=== PATIENT | male | born 1945 | race Caucasian/White ===

== ENCOUNTER 2018-03-12 11:05 | Inpatient (IN) | payer OTHER, MEDICARE ==
[~2018-03-12] VITALS: Ht 175.3 cm; Wt 116.3 kg
[~2018-03-12 11:05] MED LIST: ASPIR 8181 MG PO; AUGMENTIN 875-1 EACH PO; BAYER ASPIRIN325 M1; BUDEPRION SR150 MG PO; CREON DR 6,000 U1 EA PO; CYCLOBENZAPRINE5 MG PO; EXFORGE 10-1601 EACH PO; GLUCOPHAGE1000 MG PO; LEXAPRO10 MG PO; MELOXICAM15 MG PO; NORCO 10-325 T1 EACH PO; PRAVASTATIN SOD20 MG PO; TOPROL XL25 MG PO; Z.0.CITALOPRAM HBR10; Z.0.GLUCOPHAGE500 MG; Z.0.NORVASC5 MG; Z.0.PRINIVIL20 MG; ZOFRAN4 MG PO
[2018-03-12] MEDS ORDERED: ASPIRIN 81 MG CHEW TAB PO ONE (11:30)
[2018-03-12 11:46] LABS: BASOPHILS # (AUTO) 0.1 (0.0-0.1); BASOPHILS % 0.7 % (0.0-1.0); EOSINOPHILS # (AUTO) 0.2 (0.0-0.4); EOSINOPHILS % 1.9 % (0.0-6.0); HEMATOCRIT 45.6 % (38.2-49.6); HEMOGLOBIN 15.3 g/dL (14.0-18.0); LYMPHOCYTES # (AUTO) 2.3 (1.0-3.2); LYMPHOCYTES % 28.1 % (18.0-39.1); MEAN CORPUSCULAR HEMOGLOBIN 30.5 pg (28-32); MEAN CORPUSCULAR HGB CONC 33.6 g/dL (31-35); MONOCYTES # (AUTO) 0.7 (0.2-0.8); MONOCYTES % 8.1 % (4.4-11.3); NEUTROPHILS # (AUTO) 4.9 (2.1-6.9); NEUTROPHILS % 60.8 % (38.7-80.0); PLATELET COUNT 238 x10e3/uL (140-360); RED BLOOD COUNT 5.01 x10e6/uL (4.3-5.7); RED CELL DISTRIBUTION WIDTH 13.8 % (11.7-14.4)
[2018-03-12 12:04] LABS: ALBUMIN 3.8 g/dL (3.5-5.0); ALBUMIN/GLOBULIN RATIO 1.1 (0.8-2.0); ANION GAP 17.3 mmol/L (8-16); CALCIUM 9.5 mg/dL (8.4-10.2); CREATININE, SERUM 1.26 mg/dL (0.72-1.25); MAGNESIUM 2.1 MG/DL (1.3-2.1); POTASSIUM 4.3 mmol/L (3.5-5.1)
[2018-03-12 12:23] LABS: CREATINE KINASE MB 1.8 ng/mL (0-5.0); THYROID STIMULATING HORMONE 2.237 uIU/mL (0.350-4.940)
--- NOTE | 2018-03-12 12:25 | Diagnostic Imaging Report ---
Examination: CT head without contrast Clinical Indication: Lethargic. Confusion. Memory loss. Dementia.. Technique: Transaxial noncontrast images from the skull base through the vertex were obtained. Sagittal and coronal reformatted images were done. Dose modulation, iterative reconstruction, and/or weight based adjustment of the mA/kV was utilized to reduce the radiation dose to as low as reasonably achievable. Comparison: None. Findings: Scalp: No abnormalities. Bones: Intact. No fractures. No blastic or lytic lesions. Brain sulci: Moderate volume loss for patient's age. Ventricles: Ex vacuo dilatation. No hydrocephalus. . Extra-axial space: No abnormalities. Parenchyma: There are mild confluent areas of low-attenuation within subcortical and periventricular white matter, nonspecific, but could represent microvascular ischemic disease. No masses, hemorrhage, or acute or chronic cortical based vascular insults. Suprasellar region: No abnormalities. Craniocervical junction: The foramen magnum is patent. No Chiari one malformation. Incidental findings: Atherosclerotic calcification of the cavernous and supraclinoid internal carotid and V4 segments of the bilateral vertebral arteries. Bilateral slitlike orbital lenses. Impression: 1. No acute intracranial finding. 2. Moderate volume loss for age and mild chronic microvascular ischemic change. Signed by: Dr. Rosio Us M.D. on 03/12/2018 12:22 PM
--- NOTE | 2018-03-12 12:29 | Diagnostic Imaging Report ---
PROCEDURE: A single AP view of the chest. COMPARISON: None available. INDICATIONS: MEMORY ISSUES FINDINGS: Limited by body habitus. Lines/tubes: None. Lungs: The lungs are well inflated. Mild central vascular congestion. No definite consolidation. Pleura: There is no pleural effusion or pneumothorax. Heart and mediastinum: The cardiac silhouette is unremarkable. Thickening of the right paratracheal stripe. Bones: No acute bony abnormality. IMPRESSION: Mild central vascular congestion. No definite focal consolidation. Thickening of the right paratracheal stripe. Dictated by: Keegan Fu M.D. on 03/12/2018 at 12:35 Electronically approved by: Keegan Fu M.D. on 03/12/2018 at 12:35
[2018-03-12] MEDS ORDERED: DEXTROSE 50% SYRINGE 50 ML IV PRN (13:00)
[2018-03-12] MEDS: INSULIN REGULAR, HUMAN 100 UNIT/1 ML 3ML VIAL SQ SCH ×2 (16:30→20:52)
[2018-03-12 17:23] VITALS: BP 133/73
[2018-03-12] MEDS ORDERED: LORAZEPAM0.5 MG PO (17:37)
[2018-03-12] MEDS ORDERED: NAMENDA10 MG PO (17:37)
[2018-03-12] MEDS ORDERED: ARICEPT5 MG PO (17:37)
[2018-03-12] MEDS ORDERED: BENICAR20 MG PO (17:37)
[2018-03-12] MEDS ORDERED: METOPROLOL SUCC50 MG PO (17:37)
[2018-03-12] MEDS ORDERED: ISOSORBIDE MONO20 MG PO (17:37)
[2018-03-12] MEDS ORDERED: AMLODIPINE BESY10 MG PO (17:37)
[2018-03-12] MEDS ORDERED: BUPROPION XL300 MG PO (17:37)
--- NOTE | 2018-03-12 18:23 | History and Physical ---
PRIMARY CARE PROVIDER: TATIANA RAMIREZ MD CHIEF COMPLAINT: Confusion, forgetfulness, bradycardia, dizziness. HISTORY OF PRESENT ILLNESS: Patient is a 72-year-old male who was diagnosed with dementia approximately 2 years ago. The patient is on Namenda and Aricept. He basically had an acute episode where he was having dizziness, difficulty standing up from laying down or sitting position. His heart rate was in the 40s and 50s and per the patient the patient has increasing memory loss for the past few months. It is worsened compared to before. 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 The patient seemed to be confused. On conversation history, the patient seemed to be very forgetful. The patient is otherwise stable at this time. PAST MEDICAL HISTORY: Coronary artery disease with 2 stent placement previously. Dementia. Hypertension. Depression. Anxiety disorder. Dyslipidemia. Osteoarthritis. HOME MEDICATIONS: Norvasc, Augmentin recently, Creon, bupropion, Flexeril, Aricept, [place], isosorbide, monohydrate, Lorazepam, Mobic, metoprolol succinate 50 mg daily, metformin, , Benicar, Zofran and pravastatin. ALLERGIES: NO KNOWN ALLERGY. PAST SURGICAL HISTORY: Coronary artery disease with 2 stents, complete prostatectomy secondary to prostate cancer and right rotator cuff repair. SOCIAL HISTORY: Patient lives with his . He does not smoke or use alcohol. No recreational drugs. REVIEW OF SYSTEMS: Dizziness and forgetfulness. PHYSICAL EXAMINATION: GENERAL: The patient seems comfortable and is not in any distress. VITAL SIGNS: Temperature is 98. Blood pressure 117/69. Pulse rate 55. Respirations 18. HEENT: Normocephalic, atraumatic and anicteric. NECK: Supple grossly. PULMONARY: Clear to auscultation bilaterally. CARDIOVASCULAR: S1 and S2. Bradycardia. ABDOMEN: Soft, obese and otherwise unremarkable. EXTREMITIES: No cyanosis or edema. NEUROLOGIC: No gross focal deficit. Moving all extremities. LABORATORY: WBC is 8. Hemoglobin 15.3. Hematocrit 45.6 and platelets is 238,000. Chemistries: Sodium 142, potassium 4.3, chloride 107, bicarb 22, BUN 19, creatinine 1.3. Glucose is 157. AST 62. ALT 91. Magnesium is 2.1. TSH is 2.2. Brain CT scan showed that the patient has moderate volume loss for age and mild chronic microvascular ischemic changes. IMPRESSION: 1. Forgetfulness and dizziness. This is most likely worsening of the patient's dementia in combination with other problems, maybe including bradycardia. 2. Multiple chronic baseline problems. PLAN: MRI of the brain without contrast. Consultation with Dr. Ace, neurology. Home medications resumed. B12 and folic acid level. Will monitor the patient closely. Will hold the metoprolol for now and may add on other medications for blood pressure control. Job#: [id number]
[2018-03-12 18:59] LABS: BILIRUBIN,URINE NEGATIVE (NEGATIVE); CLARITY,URINE CLEAR (CLEAR); COLOR,URINE YELLOW (YELLOW); KETONES,URINE NEGATIVE (NEGATIVE); LEUKOCYTE ESTERASE ,URINE NEGATIVE (NEGATIVE); NITRITE,URINE NEGATIVE (NEGATIVE); PROTEIN,URINE DIPSTICK NEGATIVE (NEGATIVE); URINE UROBILINOGEN 0.2 mg/dL (0.2 - 1)
[2018-03-12 19:23] LABS: EPITHELIAL CELLS,URINE FEW /LPF
[2018-03-12 19:24] LABS: MUCUS,URINE RARE (RARE); RBC,URINE 0-5 /HPF (0-5); WBC,URINE (MAN) 0-5 /HPF (0-5)
[2018-03-12 19:51] LABS: CREATINE KINASE 92 IU/L (30-200)
[2018-03-12 20:00] VITALS: BP 136/73
[2018-03-12] MEDS: DONEPEZIL HCL 5 MG TAB PO SCH (20:51)
[2018-03-12] MEDS: PRAVASTATIN 20 MG TAB PO SCH (20:51)
[2018-03-13] VITALS: BP 154/72
[2018-03-13] MEDS: LORAZEPAM 0.5 MG TAB PO PRN ×3 (00:32→21:00)
[2018-03-13 04:00] VITALS: BP 125/60
[2018-03-13 05:12] LABS: BASOPHILS # (AUTO) 0.1 (0.0-0.1); BASOPHILS % 0.9 % (0.0-1.0); EOSINOPHILS # (AUTO) 0.3 (0.0-0.4); EOSINOPHILS % 3.1 % (0.0-6.0); HEMATOCRIT 43.6 % (38.2-49.6); LYMPHOCYTES # (AUTO) 2.7 (1.0-3.2); MEAN CORPUSCULAR HEMOGLOBIN 31.2 pg (28-32); MEAN CORPUSCULAR HGB CONC 34.4 g/dL (31-35); MEAN CORPUSCULAR VOLUME 90.6 fL (81-99); MONOCYTES # (AUTO) 0.7 (0.2-0.8); MONOCYTES % 8.6 % (4.4-11.3); NEUTROPHILS # (AUTO) 4.3 (2.1-6.9); NEUTROPHILS % 52.9 % (38.7-80.0); PLATELET COUNT 221 x10e3/uL (140-360); RED BLOOD COUNT 4.81 x10e6/uL (4.3-5.7); RED CELL DISTRIBUTION WIDTH 13.8 % (11.7-14.4)
[2018-03-13 05:35] LABS: ALANINE AMINOTRANSFERASE 80 IU/L (0-55); ALBUMIN 3.6 g/dL (3.5-5.0); ALBUMIN/GLOBULIN RATIO 1.1 (0.8-2.0); ALKALINE PHOSPHATASE 74 IU/L (40-150); BLOOD UREA NITROGEN 20 mg/dL (7-26); BUN/CREATININE RATIO 17 (6-25); CALCIUM 9.4 mg/dL (8.4-10.2); CARBON DIOXIDE 23 mmol/L (22-29); CHLORIDE 108 mmol/L (98-107); CREATINE KINASE 100 IU/L (30-200); CREATININE, SERUM 1.19 mg/dL (0.72-1.25); EST GLOMERULAR FILTRATION RATE 60 ML/MIN (60-); GLUCOSE 131 mg/dL (74-118); SODIUM 143 mmol/L (136-145)
[2018-03-13 06:33] LABS: FOLATE 5.1 ng/mL (7.0-15.4)
[2018-03-13] MEDS: INSULIN REGULAR, HUMAN 100 UNIT/1 ML 3ML VIAL SQ SCH ×4 (07:30→20:47)
[2018-03-13 08:30] VITALS: BP 121/65
[2018-03-13] MEDS ORDERED: ISOSORBIDE MONONITRATE 20 MG TAB PO SCH (09:00)
[2018-03-13] MEDS: MEMANTINE 10 MG TAB PO SCH ×2 (09:01→16:49)
[2018-03-13] MEDS: ISOSORBIDE MONONITRATE 30 MG TAB CR PO SCH (09:01)
[2018-03-13] MEDS: AMLODIPINE BESYLATE 10 MG TAB PO SCH (09:01)
[2018-03-13] MEDS: OLMESARTAN 20 MG TAB PO SCH (09:01)
[2018-03-13] MEDS: FOLIC ACID 1 MG TAB PO SCH (09:42)
[2018-03-13 12:28] VITALS: BP 116/74
--- NOTE | 2018-03-13 13:42 | Diagnostic Imaging Report ---
EXAMINATION: MRI of the brain without contrast. HISTORY: Altered mental status, dizziness, bradycardia, head pressure, forget fullness. COMPARISON: Head CT on 03/12/2018 TECHNIQUE: Sagittal T2; axial DWI, T2, FLAIR, T1-IR, T2 gradient echo; coronal FLAIR. IMAGE QUALITY: Adequate. FINDINGS: Parenchyma: 1. Few scattered mild confluent periventricular high matter Doppler hyperintense foci, most likely nonspecific chronic microvascular ischemic changes. 2. No mass, hemorrhage, acute or chronic infarcts. Skull: Unremarkable. Vessels: Expected flow voids present in the major arteries and dural sinuses. Extra-axial spaces: No abnormal signal intensity or mass effect. Brain volume: Generalized volume loss, with particular prominence of the bilateral temporal horns and bilateral hippocampal volume loss, which can be seen in patient's with Alzheimer's disease in the correct clinical setting. Ventricles: Mild ventriculomegaly, that is slightly out of proportion to the size of the cortical sulci, thinning and upward displacement of the corpus callosum, with relative partial effacement of the vertex region sulci. Some degree of normal pressure hydrocephalus cannot be excluded in the appropriate clinical setting Foramen magnum: Unremarkable. Sella: Unremarkable. Paranasal / mastoid sinuses: No significant inflammatory disease. IMPRESSION: 1. No acute infarcts. 2. Mild chronic microvascular ischemic changes. 3. Slightly disproportionate ventriculomegaly, mild degree of communicating normal pressure hydrocephalus cannot be excluded in the appropriate clinical setting. 4. Slightly disproportionate bilateral medial temporal volume loss as detailed above. Signed by: Dr. Marcia Guthrie M.D. on 03/13/2018 1:39 PM
[2018-03-13 16:22] VITALS: BP 123/74
[2018-03-13] MEDS: FAMOTIDINE 20 MG TAB PO SCH (16:49)
[2018-03-13] MEDS: ENOXAPARIN SOD INJ 40 MG/0.4 ML SYR SC SCH (16:49)
[2018-03-13 20:00] VITALS: BP 135/77
[2018-03-13] MEDS: DONEPEZIL HCL 5 MG TAB PO SCH (21:00)
[2018-03-13] MEDS: PRAVASTATIN 20 MG TAB PO SCH (21:00)
[2018-03-14] VITALS (10 sets, daily range): BP systolic 114–146; BP diastolic 65–83
--- NOTE | 2018-03-14 00:39 | Consultation ---
DATE OF CONSULTATION: March 13, 2018 NEUROLOGY CONSULTATION HISTORY OF PRESENT ILLNESS: Mr. Calderon is a 72-year-old [id number] man with past medical history significant for hypertension, hyperlipidemia, diabetes mellitus type 2, and coronary artery disease, admitted to [facility] on March 12, 2018, with symptoms concerning for transient ischemic attack. Throughout the weekend prior to admission, the patient's noted Mr. Calderon to be lethargic. On the morning of admission, the patient awoke and dressed to go to work. As he was preparing to leave, he was unable to recall that he worked for the [employer]. He could not recall his work location. Mr. Calderon does not report a new or worsening visual field cut or other disturbance, dysarthria, aphasia, facial droop, hemiparesis, hemihypoesthesia, or gait or balance impairment associated with the above symptoms. He does endorse dizziness which is further described as a vertiginous sensation. Concerned the patient may be confused due to a low serum glucose, his checked his fingerstick blood glucose. It was found to be 146. The duration of the patient's symptoms is unclear. However, his reports Mr. Calderon generally leaves for work at approximately 05:15. She often leaves for work between 06:00 and 06:30. As stated above, the symptoms began as he was leaving for work. By the time, Mr. Calderon's left for work, his symptoms had resolved. The patient was brought to the Emergency Center at [facility] for further evaluation of his symptoms. Upon arrival, the patient was afebrile with a blood pressure of 117/69 mmHg and a pulse of 55 beats per minute. The patient's neurological examination in the emergency center was documented as being nonfocal. A CT of the brain without contrast was performed while the patient was in the emergency center, but did not show evidence of recent large territorial ischemia, hemorrhage, mass, or mass effect. Mr. Calderon was diagnosed with dementia, probably of the Alzheimer type approximately 2 years ago. At present, he is under the care of Dr. Stacie Zhang. Dr. Zhang has prescribed both donepezil and memantine for treatment of the patient's symptoms. Mr. Calderon reports undergoing a recent neuropsychometric evaluation, but those results are unavailable for review. REVIEW OF SYSTEMS: Fatigue, confusion, dizziness which is further described as a vertiginous sensation. Otherwise, 12-point review of systems is negative. PAST MEDICAL HISTORY: Hypertension, hyperlipidemia, diabetes mellitus type 2, coronary artery disease, ankylosing spondylitis, nephrolithiasis, mixed depression/anxiety disorder, history of headaches, prostate cancer (in remission/cured), obstructive sleep apnea, and dementia probably of the Alzheimer type. PAST SURGICAL HISTORY: Cardiac stent placement, prostatectomy, surgery for obstructive sleep apnea, surgery to remove kidney stones, bilateral cataract removal, right rotator cuff repair, tonsillectomy. PAST HOSPITALIZATIONS: Surgeries/procedures as listed. FAMILY MEDICAL HISTORY: The patient's paternal and maternal grandparents are . Their medical histories are unknown. The patient's father is from hypertension and coronary artery disease with a myocardial infarction. His mother is from chronic obstructive pulmonary disease. Mr. Calderon had 1 sister. She is from metastatic melanoma. The patient has 2 sons, both of whom are alive and healthy. SOCIAL HISTORY: Mr. Calderon is . He works for the [employer]. The patient does report a remote history of tobacco use, but he stopped smoking cigarettes for 50+ years ago. There is no reported current or prior alcohol or recreational drug use. HOME MEDICATIONS: Please see the list available in the electronic medical records. ALLERGIES: NO KNOWN DRUG ALLERGIES. NO KNOWN FOOD ALLERGIES. NO KNOWN ALLERGIES TO LATEX. NO KNOWN ALLERGIES TO IODINE OR OTHER CONTRAST MATERIALS. PHYSICAL EXAMINATION VITAL SIGNS: Height 69 inches, weight 257 pounds, BMI 38.0 kg per meter squared. Blood pressure 116/74 mmHg. Pulse 56 beats per minute. Respiratory rate 19 breaths per minute. Oxygen saturation 98% on room air. GENERAL: The patient is awake and alert, does not appear distressed. Obese. HEENT: Normocephalic, atraumatic. Pupils are surgical. Moist mucous membranes. NECK: Supple. No appreciable thyromegaly. No appreciable carotid bruits. CARDIOVASCULAR: S1, S2, regular rate and rhythm. No murmurs, rubs, or gallops. RESPIRATORY: Clear to auscultation bilaterally. No wheezes, rhonchi, or rales. EXTREMITIES: The skin is warm and dry. No clubbing, cyanosis, or edema. The posterior tibial and dorsalis pedis pulses are 1+ and symmetric. SKIN: No rashes or lesions. NEUROLOGIC Memory/Attention: The patient is awake and alert, oriented to person, place, time, and situation. Cranial Nerves: Cranial nerve I--not tested. Cranial nerve II, III, IV, and --pupils are surgical. Extraocular movements intact. No nystagmus. Cranial nerve V--sensation to light touch and pinprick is intact in the bilateral V1 through V3 distributions. Strength of the temporalis and masseter muscles is within normal limits. Cranial nerve VII--the face is symmetric as are all facial movements. Strength is within normal limits. Cranial nerve VIII--hearing is diminished to finger rub bilaterally. Cranial nerve IX, X--the soft palate elevates equally and symmetrically. Cranial nerve XI--normal strength of the bilateral sternocleidomastoid and trapezius muscles. Cranial nerve XII--the tongue protrudes in midline and moves symmetrically from side to side. Strength: Bulk is normal. Strength is 5/5 in the bilateral deltoids, biceps, triceps, wrist flexors and extensors, finger flexors and extensors, intrinsic hand muscles, hip flexors, knee flexors and extensors, ankle dorsiflexion and plantar flexion, and intrinsic foot muscles. Tone is normal. DTRs: Deep tendon reflexes are 1+ and symmetric at the triceps, biceps, brachioradialis, and patellas. Deep tendon reflexes are absent and symmetric at the Achilles. Plantar responses are flexor bilaterally. Sensation: Sensation is intact to light touch and pinprick in both arms and both legs. Cerebellar: Mmlgqe-kpti-hxgybc and heel-benito movements are intact without dysmetria or other impairment except as follows: There is dysmetria with gutmkn-wwyx-bpllzy movements on the right. There is impairment of rapid alternating movements in both hands, left slightly greater than right. Gait: Deferred. Speech: Spontaneous speech is normal without appreciable dysarthria or aphasia. Repetition is intact. Involuntary Movements: None. Pronator Drift: None. LABORATORY DATA: The patient's complete metabolic panel is significant for mildly elevated chloride of 108, an increased anion gap of 17.0, and an elevated serum glucose of 131. Liver enzymes are mildly elevated. Vitamin B12 441. Folate 5.1. Cardiac enzymes are negative. B-type natriuretic peptide 40.8. TSH 2.237. The CBC with differential and platelets is unremarkable. PTT is within normal limits. A urinalysis collected on March 12, 2018, is unremarkable. DIAGNOSTIC STUDIES 1. Electrocardiogram March 12, 2018: Sinus bradycardia at 54 beats per minute. 2. Chest x-ray March 12, 2018: Mild central vascular congestion. No definite focal consolidation. Thickening of the right paratracheal stripe. 3. CT of the brain without contrast, March 12, 2018: On my review, there is no evidence of recent large territorial ischemia, hemorrhage, mass, or mass effect. 4. Echocardiogram, March 13, 2018: Ejection fraction 60% to 65%. Concentric left ventricular hypertrophy. Left atrial enlargement. Trace mitral and tricuspid regurgitation. The aortic valve was thickened. 5. Bilateral carotid artery ultrasound with Doppler, March 12, 2018: Report pending. 6. MRI of the brain without contrast, March 13, 2018: On my review, there is no evidence of recent large territorial ischemia, hemorrhage, mass, or mass effect. There is diffuse cerebral atrophy, more prominent in the bilateral temporal lobes. There is compensatory ventriculomegaly. There are scattered nonspecific T2/flair hyperintense foci in the deep white matter compatible with mild to moderate chronic small vessel ischemic disease. ASSESSMENT AND PLAN: Mr. Calderon is a 72-year-old man with past medical history significant for hypertension, hyperlipidemia, diabetes mellitus type 2, and coronary artery disease, admitted to [facility] with symptoms suspicious for a transient ischemic attack of the posterior circulation. At present, the patient's neurological examination is significant for mild dysmetria with rujqvj-yyok-jwkdwx of the right arm as well as impairment of rapid alternating movements of both hands, left slightly greater than right. The patient's laboratory data and other diagnostic studies have been reviewed and are documented above. RECOMMENDATIONS 1. A lipid panel and hemoglobin A1c will be ordered to complete the stroke evaluation. 2. Follow up the report of the bilateral carotid artery ultrasound with Doppler. 3. Discontinue aspirin. The patient will be prescribed Plavix 75 mg by mouth daily for stroke prophylaxis. 4. At present, the patient's blood pressures are well controlled. His goal blood pressure is less than 130/70 mmHg. Continue with current medications. Continue to monitor vital signs per unit protocol. 5. Follow up the results of the lipid panel. The patient's goal total cholesterol is less than 200 with a LDL of less than 70. Continue the patient's home medication in the interim. 6. Follow up the results of the hemoglobin A1c. The patient's goal hemoglobin A1c is less than 7.0. Continue home medications in the interim. 7. As the patient has no significant neurological deficits, speech and physical therapy evaluations will be deferred. 8. GI prophylaxis with Pepcid 20 mg by mouth twice daily with meals. DVT prophylaxis with Lovenox 40 mg subcutaneously daily. 9. Defer treatment of the remaining medical comorbidities to the primary and other services following the patient. Thank you for this consultation. I will continue to follow the patient while he remains in the hospital. TIME SPENT: 70 minutes. Job#: [id number] LEOLA HELMS
[2018-03-14 05:50] LABS: CHOL/HDL RATIO 4.9 (3.9-4.7)
[2018-03-14] MEDS: INSULIN REGULAR, HUMAN 100 UNIT/1 ML 3ML VIAL SQ SCH ×4 (07:30→21:00)
[2018-03-14] MEDS: FAMOTIDINE 20 MG TAB PO SCH ×2 (08:45→16:59)
[2018-03-14] MEDS: ISOSORBIDE MONONITRATE 30 MG TAB CR PO SCH (08:45)
[2018-03-14] MEDS: AMLODIPINE BESYLATE 10 MG TAB PO SCH (08:45)
[2018-03-14] MEDS: FOLIC ACID 1 MG TAB PO SCH (08:45)
[2018-03-14] MEDS: OLMESARTAN 20 MG TAB PO SCH (08:45)
[2018-03-14] MEDS: MEMANTINE 10 MG TAB PO SCH ×2 (08:45→16:59)
[2018-03-14] MEDS ORDERED: CLOPIDOGREL BISULFATE 75 MG TAB PO SCH (09:00)
--- NOTE | 2018-03-14 11:18 | Consultation ---
CARDIOLOGY CONSULTATION NOTE DATE OF CONSULTATION: March 14, 2018 Thank you so much for asking me to see this nice man in consultation. Mr. Calderon is a pleasant 72-year-old white man who was brought by his family to the emergency room on the when he was confused at home. HISTORY OF PRESENT ILLNESS: Patient's tells me that he "seemed fuzzy" over the weekend. She checked a fingerstick blood sugar and found it to be about 220, but then on Monday morning, patient could not remember where he was supposed to go to work and was brought to the emergency room. PAST MEDICAL HISTORY: Significant for diagnosis of dementia and does take memantine and donepezil at home. He has hypertension, type 2 adult-onset diabetes, and he had previous coronary stenting done 10 to 15 years ago by family history. Evidently most recent cardiac cath 3 or 4 years ago was unremarkable. HOME MEDICAL REGIMEN: Metoprolol which was added recently for palpitations by his cutter [employer] at [facility], Dr. Diehl. He uses metformin, lorazepam, pravastatin, amlodipine 10 mg daily, olmesartan 40 mg daily and the memantine and donepezil as mentioned above. PERSONAL SOCIAL HISTORY: He lives with his . He does not smoke or drink. PAST SURGICAL HISTORY: He had suprapubic prostatectomy for prostate cancer and has had previous cystoscopy for kidney stones. PHYSICAL EXAMINATION GENERAL: At this time shows an obese white man who is alert, responsive. Does know that he is in [place]. VITALS: Blood pressure 141/65, pulse 72, reported 5 feet 9 inches tall, weighing 257 pounds. HEENT: Unremarkable. NECK: Thick. No jugular venous distention. No bruits. THORAX: Heart sounds S1 and S2 are equal. No murmurs. Lungs are clear. ABDOMEN: Markedly protuberant. No mass or organomegaly. Nontender. There is lower midline scar healed. EXTREMITIES: No cyanosis, clubbing, or edema. EKG shows sinus bradycardia. Recent labs show BUN 20, creatinine 1.1, potassium 5.0, glucose 131. Echocardiogram relatively unremarkable. Carotid Doppler scan suggests minor plaquing in the internal carotid arteries, 15% to 30% stenoses. The vertebral arteries are poorly demonstrated. They may or may not be occluded but probably not a relevant issue. ASSESSMENTS 1. Progressive dementia. 2. Type 2 adult onset diabetes. 3. Sinus bradycardia, probably aggravated by metoprolol and seems better after it was discontinued. 4. Coronary artery disease, clinically stable with remote coronary stenting and last cardiac cath okay. PLAN: Will monitor his rhythm with you and to observe his neurological status. Thank you for asking me to see him in consultation. Job#: [id number] TA cc:TERRI MARES M.D.
[2018-03-14] MEDS: ENOXAPARIN SOD INJ 40 MG/0.4 ML SYR SC SCH (16:59)
[2018-03-14] MEDS ORDERED: PRAVASTATIN 20 MG TAB PO SCH (21:00)
[2018-03-14] MEDS: DONEPEZIL HCL 5 MG TAB PO SCH (21:34)
[2018-03-14] MEDS: LORAZEPAM 0.5 MG TAB PO PRN (21:34)
[2018-03-15 00:44] VITALS: BP 166/86
[2018-03-15 04:00] VITALS: BP 143/85
[2018-03-15] MEDS: INSULIN REGULAR, HUMAN 100 UNIT/1 ML 3ML VIAL SQ SCH (07:30)
[2018-03-15] MEDS: AMLODIPINE BESYLATE 10 MG TAB PO SCH (08:30)
[2018-03-15] MEDS: FOLIC ACID 1 MG TAB PO SCH (08:30)
[2018-03-15] MEDS: OLMESARTAN 20 MG TAB PO SCH (08:30)
[2018-03-15] MEDS: ISOSORBIDE MONONITRATE 30 MG TAB CR PO SCH (08:30)
[2018-03-15] MEDS: FAMOTIDINE 20 MG TAB PO SCH (08:30)
[2018-03-15] MEDS: MEMANTINE 10 MG TAB PO SCH (08:30)
[2018-03-15 08:32] VITALS: BP 140/82
[2018-03-15 08:33] VITALS: BP 140/82
[2018-03-15] MEDS ORDERED: CLOPIDOGREL BISULFATE 75 MG TAB PO SCH (09:00)
[2018-03-15] MEDS ORDERED: ASPIRIN EC81 MG PO (09:14)
[2018-03-15] MEDS ORDERED: PLAVIX75 MG PO (09:14)
[2018-03-15] MEDS ORDERED: BENICAR20 MG PO (09:15)
--- NOTE | 2018-03-15 09:18 | Discharge Summary ---
PCP: Dr. Coretta Reyes CONSULTANTS: Dr. Batsheva Ace and Dr. Nirav Hendricks. FINAL DIAGNOSES 1. Transient ischemic attack. 2. Bradycardia secondary to beta bria, resolved. 3. Progressive dementia, vascular most likely. 4. Obesity. 5. Multiple chronic baseline problems. Imaging tests including MRI of the brain, echocardiogram, CT of the brain, carotid Doppler, there was no significant critical findings. A 72-year-old male with progressive memory loss, but more importantly he was having an episode of above forgetfulness more so than at baseline. He does have a diagnosis of dementia approximately 2 years ago. On the day of his presentation, he was confused. Did not know that he had to go to work in the morning. Going to work, the patient also did not know where he was working. The patient was brought into the hospital. His heart rate was in the 40s. He was on metoprolol succinate 50 mg once a day. The patient's medications were discontinued. His heart rate subsequently resolved with bradycardia. His heart rate now is 60-65. Patient is stable. His dizziness also improved. The patient is stable now. Blood pressure has remained in the 140-150 systolic. He was on Benicar 20 mg once a day. Other than that, he will continue his other home medications. Plavix and baby aspirin were initiated. Patient is stable. Discussed with the patient's spouse. He will follow up with his neurologist next week. Again, MRI of the brain. carotid Doppler, CT brain, chest x-ray are all without any critical values. The patient is stable and discharged home today. Again, instructions as follows: 1. Stop the metoprolol. 2. Plavix 75 mg daily. 3. Aspirin 81 mg daily. 4. Benicar 20 mg daily. Patient is stable and discharged home today. Follow up with his family doctor and his neurologist within a week. Job#: [id number] OR
[2018-03-15 11:49] VITALS: BP 117/70
== END 2018-03-15 11:22 | disposition home or self-care (01) | DRG 69 ==
LOC: ER 11:05 → ERHOLD 12:55 → IMCU 17:15 → OBSVTOIN 03-14 09:02 → MED/SURG 03-14 10:09
PROVIDERS: ADMIT Internal Medicine; ATTEND Internal Medicine
DX: G45.9 Transient cerebral ischemic attack, unspecified (principal); R00.1 Bradycardia, unspecified; I10 Essential (primary) hypertension; E78.5 Hyperlipidemia, unspecified; E11.9 Type 2 diabetes mellitus without complications; I25.10 Atherosclerotic heart disease of native coronary artery without angina pectoris; G30.9 Alzheimer's disease, unspecified; F02.80 Dementia in other diseases classified elsewhere, unspecified severity, without behavioral disturbance, psychotic disturbance, mood disturbance, and anxiety; Z95.5 Presence of coronary angioplasty implant and graft; E66.9 Obesity, unspecified; T44.7X5A Adverse effect of beta-adrenoreceptor antagonists, initial encounter; Z68.37 Body mass index [BMI] 37.0-37.9, adult; G47.33 Obstructive sleep apnea (adult) (pediatric); Z87.891 Personal history of nicotine dependence; Z79.84 Long term (current) use of oral hypoglycemic drugs
CPT/HCPCS: 36415; 70450; 70551; 71045; 80053; 80061; 81001; 82550; 82553; 82607; 82746; 82948; 83036; 83690; 83735; 83880; 84443; 84484; 85025; 85730; 87086; 93005; 93306; 93880; 97139; 99284; G0378; J1650

== ENCOUNTER 2018-04-08 03:55 | Inpatient (IN) | payer OTHER, MEDICARE ==
[~2018-04-08] VITALS: Ht 175.3 cm; Wt 115.4 kg
[2018-04-08] VITALS (30 sets, daily range): BP systolic 4–160; BP diastolic 63–135
[~2018-04-08 03:55] MED LIST changes: +AMLODIPINE BESY10 MG PO; +ARICEPT5 MG PO; +ASPIRIN EC81 MG PO; +BENICAR20 MG PO; +BUPROPION XL300 MG PO; +ISOSORBIDE MONO20 MG PO; +LORAZEPAM0.5 MG PO; +METOPROLOL SUCC50 MG PO; +NAMENDA10 MG PO; +PLAVIX75 MG PO
[2018-04-08] MEDS ORDERED: ONDANSETRON HCL INJ 2 MG/ML VIAL IV STA (04:04)
[2018-04-08] MEDS ORDERED: MORPHINE SULFATE 2 MG/ML SYR IV STA (04:04)
[2018-04-08 04:33] LABS: BASOPHILS # (AUTO) 0.1 (0.0-0.1); BASOPHILS % 0.9 % (0.0-1.0); EOSINOPHILS # (AUTO) 0.4 (0.0-0.4); EOSINOPHILS % 3.5 % (0.0-6.0); HEMATOCRIT 46.4 % (38.2-49.6); HEMOGLOBIN 15.6 g/dL (14.0-18.0); LYMPHOCYTES # (AUTO) 2.7 (1.0-3.2); LYMPHOCYTES % 26.2 % (18.0-39.1); MEAN CORPUSCULAR HEMOGLOBIN 30.1 pg (28-32); MEAN CORPUSCULAR HGB CONC 33.6 g/dL (31-35); MEAN CORPUSCULAR VOLUME 89.4 fL (81-99); MONOCYTES # (AUTO) 1.1 (0.2-0.8); MONOCYTES % 10.8 % (4.4-11.3); NEUTROPHILS # (AUTO) 5.9 (2.1-6.9); PLATELET COUNT 263 x10e3/uL (140-360); RED BLOOD COUNT 5.19 x10e6/uL (4.3-5.7); RED CELL DISTRIBUTION WIDTH 13.7 % (11.7-14.4)
[2018-04-08 04:38] LABS: INR 0.93; PROTHROMBIN TIME 13.3 seconds (11.9-14.5)
[2018-04-08] MEDS: ASPIRIN 81 MG CHEW TAB PO STA ×2 (04:43→05:36)
[2018-04-08 04:49] LABS: ALANINE AMINOTRANSFERASE 79 IU/L (0-55); ALBUMIN/GLOBULIN RATIO 1.1 (0.8-2.0); ALKALINE PHOSPHATASE 94 IU/L (40-150); ANION GAP 18.9 mmol/L (8-16); BLOOD UREA NITROGEN 10 mg/dL (7-26); BUN/CREATININE RATIO 9 (6-25); CALCIUM 9.8 mg/dL (8.4-10.2); CARBON DIOXIDE 20 mmol/L (22-29); CHLORIDE 104 mmol/L (98-107); CREATINE KINASE 105 IU/L (30-200); CREATININE, SERUM 1.15 mg/dL (0.72-1.25); EST GLOMERULAR FILTRATION RATE > 60 ML/MIN (60-); GLUCOSE 127 mg/dL (74-118); MAGNESIUM 1.8 MG/DL (1.3-2.1); POTASSIUM 3.9 mmol/L (3.5-5.1); SODIUM 139 mmol/L (136-145)
--- NOTE | 2018-04-08 04:55 | Diagnostic Imaging Report ---
CHEST SINGLE (PORTABLE), 04/08/2018 4:04 AM Technique: CHEST SINGLE (PORTABLE) Comparison: 03/12/2018 Clinical history: Right anterior chest pain Findings: See Impression Impression: Limited by portable technique and soft tissue attenuation. Consider follow-up upright PA and lateral. 1. Stable cardiomediastinal silhouette. 2. Severe definite consolidation. No edema. 3. No effusion. No pneumothorax. Signed by: Dr Karoline Palomo MD on 04/08/2018 4:50 AM
[2018-04-08 05:13] LABS: AMYLASE 43 U/L (25-125); LIPASE 14 U/L (8-78)
[2018-04-08] MEDS ORDERED: SODIUM CHLORIDE 0.9% 500ML 500 ML IV ONE (05:15)
[2018-04-08] MEDS ORDERED: SODIUM CHLORIDE 0.9% 1000ML 1,000 ML IV STA (05:15)
[2018-04-08] MEDS ORDERED: SODIUM CHLORIDE 0.9% 1000ML 1,000 ML ONE (05:17)
[2018-04-08 05:18] LABS: CLARITY,URINE CLEAR (CLEAR); COLOR,URINE YELLOW (YELLOW); KETONES,URINE NEGATIVE (NEGATIVE); LEUKOCYTE ESTERASE ,URINE NEGATIVE (NEGATIVE); NITRITE,URINE NEGATIVE (NEGATIVE); PROTEIN,URINE DIPSTICK NEGATIVE (NEGATIVE)
[2018-04-08 05:19] LABS: BACTERIA,URINE FEW /HPF; BILIRUBIN,URINE NEGATIVE (NEGATIVE); EPITHELIAL CELLS,URINE FEW /LPF; MUCUS,URINE FEW (RARE); URINE UROBILINOGEN 0.2 mg/dL (0.2 - 1); WBC,URINE (MAN) 0-5 /HPF (0-5)
--- NOTE | 2018-04-08 06:00 | Diagnostic Imaging Report ---
EXAM: CT CHEST W DATE: 04/08/2018 5:00 AM INDICATION: Right anterior chest pain COMPARISON: None TECHNIQUE: Multidetector CT scanning of the chest was performed. Coronal and sagittal multiplanar reformations were obtained. PE protocol. CT low dose techniques were utilized, as applicable. IV Contrast: 100 ml Isovue 370/300 FINDINGS: LUNGS AND PLEURA: Minimal peripheral groundglass opacity, likely related to atelectasis. Nonspecific 3 mm right lung nodule on image 55. Small right effusion. HEART, MEDIASTINUM, VESSELS: Normal heart size with right ventricle to left ventricle ratio about 1. The central pulmonary arteries appear enlarged. The main pulmonary artery measures 3.2 cm. There are bilateral pulmonary emboli. Filing defects in the right main pulmonary artery extending into the lobar, segmental and subsegmental levels of the upper, middle and lower lobes. Filling defects in the left upper lobe segmental/subsegmental and left lower lobe subsegmental levels. Coronary artery and aortic atherosclerosis. No pericardial effusion. No adenopathy. UPPER ABDOMEN: Partially imaged left renal cyst. No acute findings. MUSCULOSKELETAL: Diffuse spine degenerative changes with bridging osteophytes. Right humeral anchor screws. IMPRESSION: Bilateral pulmonary emboli with CT findings suspicious for right heart strain. Correlate with echocardiogram. Discussed with Physician: TG REAL MD at 5:50 AM on 04/08/2018. Signed by: Dr Karoline Palomo MD on 04/08/2018 5:55 AM
[2018-04-08] MEDS: ENOXAPARIN SODIUM INJ 100 MG/ML SYR SC SCH ×2 (06:02→17:03)
[2018-04-08] MEDS ORDERED: DEXTROSE 50% SYRINGE 50 ML IV PRN (06:15)
[2018-04-08] MEDS ORDERED: MORPHINE SULFATE 2 MG/ML SYR IV PRN (06:15)
[2018-04-08] MEDS ORDERED: ONDANSETRON HCL INJ 2 MG/ML VIAL IV PRN (06:15)
[2018-04-08] MEDS ORDERED: LORAZEPAM 0.5 MG TAB PO PRN (08:30)
[2018-04-08] MEDS ORDERED: ACETAMINOPHEN 325 MG TAB PO PRN (08:30)
[2018-04-08] MEDS ORDERED: HYDRALAZINE HCL 20 MG/ML VIAL IV PRN (08:30)
[2018-04-08] MEDS: INSULIN REGULAR, HUMAN 100 UNIT/1 ML 3ML VIAL SQ SCH ×4 (08:40→21:00)
[2018-04-08] MEDS: BUPROPION HCL 150 MG TABCR PO SCH (08:54)
[2018-04-08] MEDS: MEMANTINE 10 MG TAB PO SCH ×2 (08:54→17:03)
[2018-04-08] MEDS: FAMOTIDINE 20 MG/2 ML VIAL IV SCH ×2 (08:54→22:11)
[2018-04-08] MEDS: AMLODIPINE BESYLATE 10 MG TAB PO SCH (08:54)
[2018-04-08] MEDS: ASPIRIN 81 MG ENTERIC COATED PO SCH (08:54)
[2018-04-08] MEDS: ISOSORBIDE MONONITRATE 20 MG TAB PO SCH (08:54)
[2018-04-08] MEDS: OLMESARTAN 20 MG TAB PO SCH (08:54)
[2018-04-08] MEDS ORDERED: CLOPIDOGREL BISULFATE 75 MG TAB PO SCH (09:00)
[2018-04-08] MEDS ORDERED: IOPAMIDOL 370 MG/ML 200 ML INFUS..BTL INJ ONE (09:05)
[2018-04-08] MEDS ORDERED: SODIUM CHLORIDE 0.9% 50ML 50 ML ONE (09:05)
[2018-04-08 16:42] LABS: CREATINE KINASE 81 IU/L (30-200)
--- NOTE | 2018-04-08 19:46 | Consultation ---
DATE OF CONSULTATION: April 08, 2018 CARDIOLOGY CONSULT NOTE REASON FOR CONSULTATION: Pulmonary embolism. CHIEF COMPLAINT: Chest pain and shortness of breath. HPI: Patient is 72-year-old man, history of coronary artery disease, status post PCI in the past in 2012, was recently hospitalized 3 weeks ago for bradycardia, had an episode of acute left leg pain about 10 days ago prior to admission and this morning experienced sudden onset right-sided chest pain and dyspnea that woke him from sleep, was brought to the ER and was found to have bilateral pulmonary embolism. CT scan also shows findings suspicious for a right heart strain; therefore, patient was admitted to the ICU. Currently, patient denies any chest pain or shortness of breath, says he is feeling better. Denies any syncope, orthopnea, PND, worsening lower extremity edema or any left-sided or substernal chest pain. Patient was taking aspirin and Plavix prior to admission. PAST MEDICAL HISTORY 1. Coronary artery disease 2. Hypertension. 3. Hyperlipidemia. 4. Bradycardia. PAST SURGICAL HISTORY: Status post PCI in 2014. FAMILY HISTORY: No family history of early CAD or sudden cardiac . SOCIAL HISTORY: Patient does not smoke, drink or abuse illicit drugs. OUTPATIENT MEDICATIONS: Reviewed. REVIEW OF SYSTEMS: Ten-point review of systems was performed as per HPI, otherwise negative. LABORATORY DATA: Reviewed. IMAGING DATA: Reviewed. ECG: Shows normal sinus rhythm with no acute ST-T changes. Echocardiogram was reviewed personally by me, shows normal LV size and function, normal valvular function, mildly depressed RV function, with apical hypokinesis of the RV without significant RV dilation. OBJECTIVE VITALS: Temperature 98.3, pulse 87, respiratory rate 18, blood pressure 160/94, satting 94% on 3 L nasal cannula. GENERAL: Elderly, obese, white man, no acute distress. CARDIOVASCULAR: Regular rate and rhythm. No murmurs, rubs or gallops. Palpable carotid pulses, palpable radial pulses, palpable pedal pulses. Varicosities at the level of the ankles without significant edema. No palpable cord or asymmetric leg swelling noted. LUNGS: Clear to auscultation bilaterally. ABDOMEN: Obese, soft, nontender, nondistended. No masses. NEURO AND PSYCH: Patient is alert and oriented to person, place, and time. Displays a normal affect. ASSESSMENT AND PLAN 1. Acute bilateral pulmonary embolism. 2. Mild right ventricular strain. 3. Coronary artery disease, status post stents in the past. 4. Hypertension. 5. Hyperlipidemia. PLAN: This is likely provoked pulmonary embolism related to his previous hospitalization about 3 weeks ago and general sedentary lifestyle. Agree with starting anticoagulation with full-dose Lovenox. Once the patient is in the ICU, will switch over to oral anticoagulant starting tomorrow. Given the high risk of bleeding with triple therapy and the stents being over 3 years old at this point, will stop the Plavix and continue aspirin along with his anticoagulation for DVT and PE. Thank you for this consult. Will follow closely. Job#: [id number] CQ
[2018-04-08] MEDS: PRAVASTATIN 20 MG TAB PO SCH (22:11)
[2018-04-08] MEDS: DONEPEZIL HCL 5 MG TAB PO SCH (22:11)
[2018-04-09] VITALS (15 sets, daily range): BP systolic 119–144; BP diastolic 68–102
[2018-04-09 05:09] LABS: BASOPHILS # (AUTO) 0.1 (0.0-0.1); EOSINOPHILS # (AUTO) 0.3 (0.0-0.4); EOSINOPHILS % 4.4 % (0.0-6.0); HEMATOCRIT 41.7 % (38.2-49.6); HEMOGLOBIN 14.3 g/dL (14.0-18.0); LYMPHOCYTES # (AUTO) 1.9 (1.0-3.2); LYMPHOCYTES % 26.4 % (18.0-39.1); MEAN CORPUSCULAR HEMOGLOBIN 30.8 pg (28-32); MEAN CORPUSCULAR HGB CONC 34.3 g/dL (31-35); MEAN CORPUSCULAR VOLUME 89.7 fL (81-99); MONOCYTES # (AUTO) 0.8 (0.2-0.8); MONOCYTES % 11.3 % (4.4-11.3); NEUTROPHILS # (AUTO) 4.1 (2.1-6.9); NEUTROPHILS % 56.3 % (38.7-80.0); PLATELET COUNT 242 x10e3/uL (140-360); RED BLOOD COUNT 4.65 x10e6/uL (4.3-5.7); RED CELL DISTRIBUTION WIDTH 13.8 % (11.7-14.4)
[2018-04-09 05:28] LABS: INR 1.06; PROTHROMBIN TIME 14.8 seconds (11.9-14.5)
[2018-04-09 05:29] LABS: PARTIAL THROMBOPLASTIN TIME 35.9 seconds (23.8-35.5)
[2018-04-09] MEDS: ENOXAPARIN SODIUM INJ 100 MG/ML SYR SC SCH (06:16)
[2018-04-09 06:31] LABS: SODIUM 142 mmol/L (136-144)
[2018-04-09 06:32] LABS: BLOOD UREA NITROGEN 11 mg/dL (8-26); BUN/CREATININE RATIO 11 (6-25); CARBON DIOXIDE 26 mmol/L (22-32); CHLORIDE 105 mmol/L (101-111); EST GLOMERULAR FILTRATION RATE > 60 ML/MIN (60-); GLUCOSE 128 mg/dL (74-118)
--- NOTE | 2018-04-09 06:53 | Diagnostic Imaging Report ---
EXAM: CHEST SINGLE (PORTABLE), AP 1 view INDICATION: Pulmonary embolism COMPARISON: AP view of the chest April 08, 2018 FINDINGS: LINES/TUBES: None LUNGS: No consolidations or edema. PLEURA: No effusions or pneumothorax. HEART AND MEDIASTINUM: Normal for technique. BONES AND SOFT TISSUES: No acute findings. IMPRESSION: No interval change. Signed by: Dr. Kylah Mo M.D. on 04/09/2018 6:48 AM
[2018-04-09] MEDS: INSULIN REGULAR, HUMAN 100 UNIT/1 ML 3ML VIAL SQ SCH ×4 (07:35→21:19)
[2018-04-09] MEDS: OLMESARTAN 20 MG TAB PO SCH (07:53)
[2018-04-09] MEDS: FAMOTIDINE 20 MG/2 ML VIAL IV SCH ×2 (07:53→21:10)
[2018-04-09] MEDS: ASPIRIN 81 MG ENTERIC COATED PO SCH (07:53)
[2018-04-09] MEDS: MEMANTINE 10 MG TAB PO SCH ×2 (07:55→16:01)
[2018-04-09] MEDS: ISOSORBIDE MONONITRATE 20 MG TAB PO SCH (07:55)
[2018-04-09] MEDS: BUPROPION HCL 150 MG TABCR PO SCH (07:56)
[2018-04-09] MEDS: AMLODIPINE BESYLATE 10 MG TAB PO SCH (07:56)
[2018-04-09 08:17] LABS: ALANINE AMINOTRANSFERASE 61 IU/L (0-55); ALBUMIN 3.5 g/dL (3.5-5.0); ALBUMIN/GLOBULIN RATIO 1.1 (0.8-2.0); ALKALINE PHOSPHATASE 80 IU/L (40-150); CALCIUM 9.2 mg/dL (8.4-10.2); CHOL/HDL RATIO 4.4 (3.9-4.7); CHOLESTEROL 141 MD/DL (0-199); HDL CHOLESTEROL 32 MG/DL (40-60); LDL CHOLESTEROL 75 MG/DL (60-130); TRIGLYCERIDES 172 MG/DL (0-149)
[2018-04-09 09:18] LABS: MAGNESIUM 1.9 MG/DL (1.3-2.1)
[2018-04-09] MEDS ORDERED: XARELTO15 MG PO (09:31)
[2018-04-09] MEDS ORDERED: XARELTO20 MG PO (09:31)
[2018-04-09 09:45] LABS: FREE T4 (FREE THYROXINE) 0.76 ng/dL (0.9-1.8); THYROID STIMULATING HORMONE 3.366 uIU/mL (0.350-4.940)
[2018-04-09] MEDS ORDERED: BISACODYL 5 MG TAB EC PO ONE (10:00)
--- NOTE | 2018-04-09 11:10 | Progress Note ---
DATE: April 09, 2018 CARDIOLOGY PROGRESS NOTE SUBJECTIVE: The patient denies chest pain or shortness of breath. He has not had any significant bleeding other than some epistaxis when he blows his nose. OBJECTIVE VITALS: Temperature 98.8 degrees, pulse 87, respiratory rate 16, blood pressure 124/74, oxygen saturation 92% on 4 L nasal cannula. GENERAL: Awake, alert and in no acute distress. LUNGS: Clear to auscultation bilaterally. No wheezes or crackles. CARDIOVASCULAR: Normal rate. Regular rhythm. No murmurs. Normal S1 and S2. ABDOMEN: Soft. No edema. Telangiectasias are present. NEURO: Nonfocal exam. CARDIAC MEDICATIONS 1. Amlodipine 10 mg p.o. daily. 2. Isosorbide mononitrate 30 mg p.o. daily. 3. Aspirin 81 mg p.o. daily. 4. Olmesartan 20 mg p.o. daily. 5. Enoxaparin 100 mg subcutaneous q.12 h. LABS: WBC 7.26, hemoglobin 14.3, hematocrit 41.7, and platelets 242,000. Sodium 142, potassium 4, chloride 105, CO2 26, BUN 11, creatinine 1. Triglycerides 172, cholesterol 141, LDL 75, HDL 32. TSH 3.366. Telemetry is normal sinus rhythm. IMPRESSION 1. Acute bilateral pulmonary embolism with right ventricular strain. 2. Coronary artery disease: Status post stent in the past. 3. Hypertension. 4. Hyperlipidemia. RECOMMENDATIONS: Discussed Coumadin versus anticoagulant. The patient would be better served with Xarelto or Eliquis given difficulty with dietary consistency for the patient. Continue current cardiac medications. Recommend home O2 evaluation. Likely discharge home tomorrow if the patient is improved. Thank you for this consult. We will continue to follow. Job#: [id number] NE
[2018-04-09] MEDS: RIVAROXABAN 15 MG TABLET PO SCH (16:01)
[2018-04-09] MEDS: PRAVASTATIN 20 MG TAB PO SCH (21:10)
[2018-04-09] MEDS: DONEPEZIL HCL 5 MG TAB PO SCH (21:10)
[2018-04-10] VITALS: BP 104/57
[2018-04-10 04:00] VITALS: BP 129/74
[2018-04-10 05:32] LABS: BASOPHILS # (AUTO) 0.1 (0.0-0.1); EOSINOPHILS # (AUTO) 0.5 (0.0-0.4); EOSINOPHILS % 6.6 % (0.0-6.0); HEMATOCRIT 43.6 % (38.2-49.6); HEMOGLOBIN 14.8 g/dL (14.0-18.0); LYMPHOCYTES % 24.5 % (18.0-39.1); MEAN CORPUSCULAR HEMOGLOBIN 30.3 pg (28-32); MEAN CORPUSCULAR HGB CONC 33.9 g/dL (31-35); MEAN CORPUSCULAR VOLUME 89.3 fL (81-99); MONOCYTES # (AUTO) 0.8 (0.2-0.8); MONOCYTES % 9.7 % (4.4-11.3); NEUTROPHILS # (AUTO) 4.6 (2.1-6.9); NEUTROPHILS % 57.6 % (38.7-80.0); PLATELET COUNT 259 x10e3/uL (140-360); RED BLOOD COUNT 4.88 x10e6/uL (4.3-5.7); RED CELL DISTRIBUTION WIDTH 13.5 % (11.7-14.4)
[2018-04-10 06:07] LABS: BLOOD UREA NITROGEN 10 mg/dL (7-26); BUN/CREATININE RATIO 9 (6-25); CALCIUM 9.2 mg/dL (8.4-10.2); CARBON DIOXIDE 22 mmol/L (22-29); CHLORIDE 107 mmol/L (98-107); CREATININE, SERUM 1.09 mg/dL (0.72-1.25); EST GLOMERULAR FILTRATION RATE > 60 ML/MIN (60-); GLUCOSE 132 mg/dL (74-118); SODIUM 142 mmol/L (136-145)
[2018-04-10] MEDS: INSULIN REGULAR, HUMAN 100 UNIT/1 ML 3ML VIAL SQ SCH (07:40)
[2018-04-10 07:56] VITALS: BP 119/73
[2018-04-10] MEDS: OLMESARTAN 20 MG TAB PO SCH (08:20)
[2018-04-10] MEDS: ISOSORBIDE MONONITRATE 20 MG TAB PO SCH (08:20)
[2018-04-10] MEDS: FAMOTIDINE 20 MG/2 ML VIAL IV SCH (08:20)
[2018-04-10] MEDS: BUPROPION HCL 150 MG TABCR PO SCH (08:20)
[2018-04-10] MEDS: ASPIRIN 81 MG ENTERIC COATED PO SCH (08:20)
[2018-04-10] MEDS: RIVAROXABAN 15 MG TABLET PO SCH (08:21)
[2018-04-10] MEDS: MEMANTINE 10 MG TAB PO SCH (08:21)
[2018-04-10] MEDS: AMLODIPINE BESYLATE 10 MG TAB PO SCH (08:22)
[2018-04-10 08:55] VITALS: BP 119/73
--- NOTE | 2018-04-10 14:09 | Discharge Summary ---
ADMITTING DIAGNOSES 1. Bilateral pulmonary embolism. 2. Dementia. 3. Hypertension. 4. Depression and anxiety. 5. Hyperlipidemia. 6. Type-2 diabetes. 7. Obesity. DISCHARGE DIAGNOSES 1. Bilateral pulmonary embolism. 2. Dementia. 3. Hypertension. 4. Depression and anxiety. 5. Hyperlipidemia. 6. Type-2 diabetes. 7. Obesity. HISTORY: The patient has a history of CAD with 2 stent placements, dementia, hypertension, depression, anxiety, hyperlipidemia, OA, TIA, type-2 diabetes, prostate cancer. Surgical history of prostatectomy, right rotator cuff repair and cystoscopy. Family history of MA in his father and cancer in his sister. HOSPITAL COURSE: This 72-year-old male complains of right-sided chest pain and shortness of breath that began around 3 a.m. that woke him up from his sleep. The pain was sharp and constant and lasted until he was given morphine in the ER. Nothing makes the pain worse. There was no associated nausea, vomiting, diarrhea or fever. On admission, a D-dimer was drawn, which was 5.14. Lovenox b.i.d. 100 mg was started. Cardio was consulted. The patient also was resumed on his home medications of Plavix and aspirin. An echo was done that showed 60% to 65% EF with RV strain per cardiology. The patient requires oxygen now, so we will discharge home with oxygen. PE was found on the CT of the chest done in the ER. Chest x-rays were negative. Per cardiology, the patient will need Xarelto with aspirin. He no longer needs the Plavix since his stents are over 3 years old. He will follow up with cardiology as discussed and follow up with primary care in 1 to 2 weeks. He will resume the rest of his home medicines besides Plavix. The patient and his understand the discharge instructions and agree to the plan. Vital signs are stable. The patient is afebrile. Dictated by: Rhea Munoz NP CHERELLE CIFUENTES MD Job#: [id number]
== END 2018-04-10 11:04 | disposition home or self-care (01) | DRG 175 ==
LOC: ER 03:55 → ERHOLD 06:23 → ICU 07:48 → MED/SURG3 04-09 11:48
PROVIDERS: ADMIT Internal Medicine; ATTEND Internal Medicine
DX: I26.09 Other pulmonary embolism with acute cor pulmonale (principal); I25.10 Atherosclerotic heart disease of native coronary artery without angina pectoris; Z95.5 Presence of coronary angioplasty implant and graft; I10 Essential (primary) hypertension; E11.9 Type 2 diabetes mellitus without complications; Z87.442 Personal history of urinary calculi; E78.5 Hyperlipidemia, unspecified; Z85.46 Personal history of malignant neoplasm of prostate; F03.90 Unspecified dementia, unspecified severity, without behavioral disturbance, psychotic disturbance, mood disturbance, and anxiety; Z83.3 Family history of diabetes mellitus; Z82.49 Family history of ischemic heart disease and other diseases of the circulatory system; Z86.73 Personal history of transient ischemic attack (TIA), and cerebral infarction without residual deficits; M19.90 Unspecified osteoarthritis, unspecified site; Z87.891 Personal history of nicotine dependence; E66.9 Obesity, unspecified; F41.8 Other specified anxiety disorders; Z68.37 Body mass index [BMI] 37.0-37.9, adult
CPT/HCPCS: 36415; 71045; 71260; 80048; 80053; 80061; 81001; 82150; 82550; 82553; 82948; 83036; 83690; 83735; 83880; 84439; 84443; 84484; 85025; 85379; 85610; 85730; 87086; 93005; 93306; 93970; 96374; 99284; J1650; J2270; J2405; J7030; J7040; Q9967

== ENCOUNTER → 2018-08-03 | Day surgery (SDC) | payer OTHER ==
[2018-08-02 09:45] VITALS: BP 150/78
--- NOTE | 2018-08-02 17:00 | NUR ---
Patient and arrive to Complaint Supervisor unit. 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 Marlene Calderon stated that Fabian Calderon signs paperwork with her present.
--- NOTE | 2018-08-02 17:30 | NUR ---
Reviewed consent with patient and Marlene Calderon present. Patient and Marlene Calderon stated they had no questions at this time.
[2018-08-02 17:58] LABS: BASOPHILS # (AUTO) 0.1 (0.0-0.1); EOSINOPHILS # (AUTO) 0.3 (0.0-0.4); EOSINOPHILS % 3.2 % (0.0-6.0); HEMATOCRIT 48.1 % (38.2-49.6); HEMOGLOBIN 16.2 g/dL (14.0-18.0); LYMPHOCYTES # (AUTO) 2.4 (1.0-3.2); LYMPHOCYTES % 29.8 % (18.0-39.1); MEAN CORPUSCULAR HEMOGLOBIN 29.9 pg (28-32); MEAN CORPUSCULAR HGB CONC 33.7 g/dL (31-35); MEAN CORPUSCULAR VOLUME 88.9 fL (81-99); MONOCYTES # (AUTO) 0.7 (0.2-0.8); MONOCYTES % 8.1 % (4.4-11.3); NEUTROPHILS # (AUTO) 4.7 (2.1-6.9); NEUTROPHILS % 57.7 % (38.7-80.0); PLATELET COUNT 246 x10e3/uL (140-360); RED BLOOD COUNT 5.41 x10e6/uL (4.3-5.7); RED CELL DISTRIBUTION WIDTH 14.1 % (11.7-14.4)
[2018-08-02 18:20] LABS: ANION GAP 16.9 mmol/L (8-16); CREATININE, SERUM 1.21 mg/dL (0.72-1.25); POTASSIUM 4.9 mmol/L (3.5-5.1)
[2018-08-02 18:29] LABS: INR 1.07; PROTHROMBIN TIME 14.9 seconds (11.9-14.5)
[2018-08-02 19:41] LABS: CHOL/HDL RATIO 3.8 (3.9-4.7)
[2018-08-03] VITALS (13 sets, daily range): BP systolic 121–164; BP diastolic 68–83
[~2018-08-03] VITALS: Ht 175.3 cm; Wt 113.4 kg
[~2018-08-03] MED LIST changes: +FENTANYL CITRATE/PF 100MCG/2 ML INJ ONE; +FUROSEMIDE INJ 10 MG/ML 4 ML VIAL ONE; +HEPARIN SOD (PORCINE) 1000 UNIT/ML 30ML ONE; +HEPARIN SOD/SOD CHLORIDE 2,000 ML ONE; +IOPAMIDOL 370 MG/ML 200 ML INFUS..BTL INJ ONE; +LIDOCAINE HCL 2% LOCAL 20 ML VIAL ONE; +MIDAZOLAM HCL 2 MG/2 ML VIAL ONE; +NITROGLYCERIN/D5W 200 MCG/ML 250 ML ONE; +SODIUM CHLORIDE 0.9% 1000ML 1,000 ML ONE; +VERAPAMIL HCL 2.5 MG/ML 2 ML VIAL ONE; +XARELTO15 MG PO; +XARELTO20 MG PO
--- OUTSIDE RECORDS SUMMARY | 2018-08-03 06:31 | XMS REPORT | Continuity of Care Document ---
Author Author [facility] Interface Address Unknown Phone Unavailable Problems Problem Status Onset Date Classification Date Reported Comments Source G45.8 - OTH TRANSIENT CEREBRAL ISCHEMI Active 05/29/2015 [facility] DIABETES MELLITUS Active 01/08/2014 Condition 01/08/2014 [facility] PTCA - HX OF Active 01/08/2014 Condition 01/08/2014 [facility] Diabetes mellitus<sup>2</sup> Active 01/08/2014 Problem 01/27/2018 Data migrated from [employer] on 12/13/14. [facility] CAD Active Condition 01/08/2014 [facility] HYPERTENSION Active Condition 01/08/2014 [facility] HYPERCHOLESTEROLEMIA Active Condition 01/08/2014 [facility] SLEEP APNEA Active Condition 01/08/2014 [facility] Coronary arteriosclerosis<sup>1</sup> Active Problem 01/27/2018 Data migrated from [employer] on 12/13/14. [facility] Dizziness Active Problem 01/27/2018 [facility] High cholesterol Active Problem 01/27/2018 [facility] Hypertensive disorder<sup>3</sup> Active Problem 01/27/2018 Data migrated from [employer] on 12/13/14. [facility] Bad memory Active Problem 01/27/2018 [facility] Obesity Active Problem 01/27/2018 [facility] Sleep apnea<sup>4</sup> Active Problem 01/27/2018 Data migrated from [employer] on 12/13/14. [facility] History of coronary artery stent placement Active Problem 01/27/2018 [facility] Atypical chest pain Active Problem 01/27/2018 [facility] Hypercholesterolemia<sup>3</sup> Active Problem 06/11/2015 Data migrated from [employer] on 12/13/14. [facility] Hypertensive disorder<sup>4</sup> Active Problem 06/11/2015 Data migrated from [employer] on 12/13/14. [facility] Sleep apnea<sup>5</sup> Active Problem 06/11/2015 Data migrated from [employer] on 12/13/14. [facility] Medications Medication Details Route Status Patient Instructions Ordering Provider Order Date Source Imdur 30 mg oral tablet, extended release 30 mg=1 tab, PO, QAM, # 90 tab, 3 Refill(s), Pharmacy: [facility] [id number] Active 01/24/2018 [facility] amLODIPine 10 mg oral tablet 10 mg=1 tab, PO, Daily, # 90 tab, 1 Refill(s), Pharmacy: [facility] [id number] Active 11/15/2017 [facility] metoprolol 50 mg oral tablet, extended release 50 mg=1 tab, PO, Daily, # 90 tab, 3 Refill(s), Pharmacy: [facility] [id number] Active 06/28/2017 [facility] ESCITALOPRAM OXALATE 10 MG TABS 1 tablet daily Active 12/16/2013 [facility] ASPIRIN EC LOW DOSE 81 MG TBEC ONE PO QD Active 06/12/2013 [facility] ASPIRIN EC LOW DOSE 81 MG TBEC ONE PO QD Active 06/12/2013 [facility] BESIVANCE 0.6 % SUSP 1 gtt tid No Longer Active 10/22/2012 [facility] NORVASC 10 MG TABS No Longer Active 10/22/2012 [facility] LIPITOR 10 MG TABS No Longer Active 10/22/2012 [facility] LISINOPRIL 20 MG TABS No Longer Active 10/22/2012 [facility] CELEBREX 200 MG CAPS No Longer Active 10/22/2012 [facility] ZOLOFT 100 MG TABS No Longer Active 10/22/2012 [facility] LIPITOR 10 MG TABS No Longer Active 10/22/2012 [facility] CELEBREX 200 MG CAPS No Longer Active 10/22/2012 [facility] LISINOPRIL 20 MG TABS No Longer Active 10/22/2012 [facility] CELEBREX 200 MG CAPS No Longer Active 10/22/2012 [facility] ZOLOFT 100 MG TABS No Longer Active 10/22/2012 [facility] BESIVANCE 0.6 % SUSP 1 gtt tid No Longer Active 10/22/2012 [facility] ACULAR LS 0.4 % SOLN 1 gtt tid No Longer Active 09/17/2012 [facility] MOBIC 15 MG TABS 1 po qd Active 05/21/2012 [facility] FLEXERIL 5 MG TABS 1 po q pm No Longer Active 05/21/2012 [facility] MOBIC 15 MG TABS 1 po qd No Longer Active 05/21/2012 [facility] BUDEPRION SR 150 MG [id number] 1 po bid Active 04/16/2012 [facility] LEXAPRO 10 MG TABS 1 po qd Active 03/19/2012 [facility] LEXAPRO 10 MG TABS 1 po qd No Longer Active 03/19/2012 [facility] METFORMIN HCL 1000 MG TABS 1 po bid Active 10/17/2011 [facility] PRAVACHOL 40 MG TABS 1 po qd Active 10/17/2011 [facility] EXFORGE 10-160 MG TABS 1 po qd Active 10/17/2011 [facility] METFORMIN HCL 1000 MG TABS 1 po bid Active 10/17/2011 [facility] PRAVACHOL 40 MG TABS 1 po qd Active 10/17/2011 [facility] METFORMIN HCL 1000 MG TABS 1 po bid Active 10/17/2011 [facility] Allergies, Adverse Reactions, Alerts Substance Category Reaction Severity Reaction type Status Date Reported Comments Source NKFA Assertion Food allergy Active [facility] Immunizations Immunization Date Given Site Status Last Updated Comments Source Results Order Name Results Value Reference Range Date Interpretation Comments Source Brain wo contrast MRI Brain wo contrast MRI CLINICAL: Transient ischemic attack. COMPARISON STUDY: None. PROCEDURE: 1. Axial plane: T1, proton density, T2, FLAIR, diffusion weighting and ADC mapping. 2. Coronal plane: FLAIR. 3. Sagittal plane: T1 weighting. FINDINGS: Orbits, sinuses and extracranial soft tissues are unremarkable in appearance. Ventricular system is mildly to moderately dilated, without significant atrophy. Multiple discrete to confluent FLAIR hyperintensities are seen in the rostral juxtacortical and deep subcortical white matter of both hemispheres, in the external capsules and anterior subinsular white matter bilaterally, and in the right basis pontis and left pontine tegmentum. Increased FLAIR signal outlines lateral ventricular ependyma bilaterally. There is no abnormal restricted diffusion. IMPRESSION: 1.. Multiple FLAIR hyperintensities in the mcallister radiata, subinsular regions and trina as described above, nonspecific in appearance but most consistent with lacunar and microvascular ischemic infarcts. 2. No acute ischemic lesions identified. 3. Mild to moderate ventriculomegaly without atrophy. This may represent hydrocephalus ex vacuo due to loss of white matter volume, but communicating hydrocephalus of other etiology such as normal pressure hydrocephalus should be considered. 06/08/2015 - - Read by: Michael Lee MD Dictated Date/time: 06/08/15 18:17 Electronically Signed by: Michael Lee MD 06/08/15 18:28 FINAL REPORT [facility] Carotid artery Doppler bilat US Carotid artery Doppler bilat US COMMENT: This redictation replaces and supersedes any previous dictations of this study. CLINICAL: Transient ischemic attack. COMPARISON STUDY: None. FINDINGS: Duplex Doppler ultrasonography and color-flow study obtained of the carotid and vertebral arteries. Minimal intimal thickening is present in both common carotid arteries. Mild to moderate focal irregular heterogeneous plaque is noted in both carotid bulbs. Right internal carotid artery maximal peak systolic velocity: 1.10 m/sec Right common carotid artery maximal peak systolic velocity: 1.41 m/sec Right IC/CC ratio: 0.78 Left internal carotid artery maximal peak systolic velocity: 1.07 m/sec Left common carotid artery maximal peak systolic velocity: 1.62 m/sec Left IC/CC ratio: 0.66 Flow in the vertebral arteries is antegrade bilaterally. Findings confirmed by color Doppler flow study. IMPRESSION: 1. Minimal intimal thickening in both common carotid arteries. 2. Mild to moderate focal plaque in both carotid bulbs. 3. Less than or equal to 40% stenosis in both internal carotid arteries. CAROTID DOPPLER ULTRASOUND CLINICAL INDICATION: 70-year-old male with a TIA. ADDITIONAL DATA: None. COMPARISON: None. TECHNIQUE: The extracranial carotid arteries were evaluated with color and spectral Doppler. FINDINGS: Note: ICA=internal carotid artery. CCA=common carotid artery. PSV=peak systolic velocity. Right: Intimal irregularity but no plaque, stenosis or hemodynamic abnormality seen. CCA: PSV 141 cm/s. ICA: PSV 110 cm/s. ICA/CCA PSV ratio: 0.8. Vertebral artery: Cephalad 52 cm/s. Left: Intimal irregularity and no plaque, stenosis or hemodynamic abnormality seen. CCA: PSV 162 cm/s. ICA: PSV 107 cm/s. ICA/CCA PSV ratio: 0.7. Vertebral artery: Cephalad 50 cm/s. IMPRESSION: 1. Normal carotid Doppler evaluation.. Please note: Ultrasound carotid stenosis determination is based on the 2003 SRU Consensus Conference criteria as follows: <50% stenosis: PSV <125 cm/sec, EDV <40cm/sec, ICA:CCA ratio <2 50-69% stenosis: PSV 125-230cm/sec, EDV 40-100cm/sec, ICA:CCA ratio 2-4 >70% stenosis: PSV >230cm/sec, EDV >100cm/sec, ICA:CCA ratio >4 06/08/2015 - - Read by: Michael Lee MD Dictated Date/time: 06/08/15 17:51 Electronically Signed by: Michael Lee MD 06/08/15 17:55 FINAL REPORT - - Read by: Jones Brantley MD Dictated Date/time: 06/08/15 16:37 Electronically Signed by: Jones Brantley 06/08/15 16:38 FINAL REPORT [facility] Chemistry SODIUM 139 mmol/L 10/19/2007 [facility] Chemistry POTASSIUM 4.4 mmol/L 10/19/2007 [facility] Chemistry BUN 14 mg/dL 10/19/2007 [facility] Chemistry CREATININE 0.97 mg/dL 10/19/2007 [facility] Chemistry ALBUMIN 4.5 g/dL 10/19/2007 [facility] Chemistry CALCIUM 9.3 mg/dL 10/19/2007 [facility] Chemistry SGOT (AST) 32 U/L 10/19/2007 [facility] Chemistry SGPT (ALT) 54 U/L 10/19/2007 [facility] Chemistry ALK PHOS 120 U/L 10/19/2007 [facility] Chemistry CHOLESTEROL 131 mg/dl 10/19/2007 [facility] Chemistry HDL 36 mg/dl 10/19/2007 [facility] Chemistry LDL 72 mg/dl 10/19/2007 [facility] Chemistry TRIGLYCERIDE 117 mg/dl 10/19/2007 [facility] Hematology HCT 45.7 % 10/19/2007 [facility] Hematology HGB 15.5 g/dL 10/19/2007 [facility] Hematology PLATELETS 243 /mm3 10/19/2007 [facility] Hematology HCT 47.1 % 02/08/2006 [facility] Hematology HGB 16.4 g/dL 02/08/2006 [facility] Hematology PLATELETS 249 /mm3 02/08/2006 [facility] Vital Signs Vital Sign Value Date Comments Source Weight 119.545 01/24/2018 [facility] BMI Calculated 38.92 01/24/2018 [facility] Systolic (mm Hg) 130 01/24/2018 [facility] Diastolic (mm Hg) 80 01/24/2018 [facility] Heart Rate 86 01/24/2018 [facility] Height 175.26 cm 01/24/2018 [facility] BMI Calculated 40.81 06/28/2017 [facility] Weight 118.182 06/28/2017 [facility] Height 170.18 cm 06/28/2017 [facility] Systolic (mm Hg) 180 06/28/2017 [facility] Diastolic (mm Hg) 90 06/28/2017 [facility] Weight 246 01/08/2014 [facility] Systolic (mm Hg) 135 01/08/2014 [facility] Diastolic (mm Hg) 68 01/08/2014 [facility] Weight 246 06/12/2013 [facility] Heart Rate 99 06/12/2013 [facility] Systolic (mm Hg) 158 06/12/2013 [facility] Diastolic (mm Hg) 70 06/12/2013 [facility] Weight 246 10/22/2012 [facility] Height 69 10/22/2012 [facility] Systolic (mm Hg) 144 10/22/2012 [facility] Diastolic (mm Hg) 80 10/22/2012 [facility] Heart Rate 96 10/22/2012 [facility] Weight 250 11/01/2007 [facility] Systolic (mm Hg) 140 11/01/2007 [facility] Diastolic (mm Hg) 80 11/01/2007 [facility] Heart Rate 74 11/01/2007 [facility] Weight 250 02/02/2006 [facility] Weight 242 07/22/2004 [facility] Systolic (mm Hg) 108 07/22/2004 [facility] Diastolic (mm Hg) 76 07/22/2004 [facility] Heart Rate 76 07/22/2004 [facility] Encounters Location Location Details Encounter Type Encounter Number Reason For Visit Attending Provider ADM Date DC Date Status Source [facility] Cardiology Office Visit [id number] Michael Vides MD 10/22/2012 10/22/2012 [facility] Group [facility] Cardiology Office Visit [id number] Michael Vides MD 06/12/2013 06/12/2013 [facility] Group [facility] Cardiology Office Visit [id number] Michael Vides MD 01/08/2014 01/08/2014 [facility] Outpatient Imaging [facility] Outpt Diag Services [id number] Bruna Enriquez 06/08/2015 06/09/2015 [facility] Outpatient [id number] MICHAEL VIDES 11/23/2015 [facility] [id number] IMCHAEL VIDES 10/18/2016 Active [facility] Outpatient [id number] NUCLEAR LAB VISIT 11/10/2016 Active [facility] Outpatient [id number] MICHAEL VIDES 11/23/2016 Active [facility] Outpatient [id number] MICHAEL VIDES 05/24/2017 Active [facility] Outpatient [id number] MICHAEL VIDES 06/28/2017 Active [facility] Cardiology [facility] Outpatient [id number] Michael Vides Jr 06/28/2017 06/29/2017 [facility] Group [facility] Phone Message [id number] 11/15/2017 11/17/2017 [facility] Outpatient [id number] MICHAEL VIDES 01/24/2018 Active [facility] Cardiology [facility] Outpatient [id number] Michael Vides Jr 01/24/2018 01/25/2018 [facility] Outpatient [id number] MICHAEL VIDES 07/25/2018 Active [facility] Procedures Procedure Code Date Perfomer Comments Source Rotator cuff repair [id number] 07/17/2012 [facility] Rotator cuff repair [id number] 07/17/2012 [facility] Placement of stent [id number] 03/05/1999 [facility] Placement of stent [id number] 03/05/1999 [facility] Procedure on prostate [id number] [facility] Procedure on prostate [id number] [facility]
--- NOTE | 2018-08-03 09:14 | NUR ---
Received report from Cortes JACK. Reviewed medications given, orders, and procedural events. Patient educated on keeping right wrist still. at bedside. Patient sitting up in bed awake and alert. No distress noted at this time. IV to left hand is without signs or symptoms of infiltration at this time with Normal saline 0.9% infusing at 100ml/hr.
--- NOTE | 2018-08-03 09:30 | NUR ---
Cortes JACK gave lasix 40 mg IV to left hand. Patient tolerated well.
--- NOTE | 2018-08-03 09:37 | NUR ---
Dr. Ge at bedside to discuss findings with patient and at bedside.
--- NOTE | 2018-08-03 09:45 | NUR ---
Patient void 210ml via urinal.
--- NOTE | 2018-08-03 10:07 | NUR ---
Removed 3ml of air from right wrist TR band. No signs or symptoms of active bleeding to right wrist site at this time. Patient tolerated well.
--- NOTE | 2018-08-03 10:23 | NUR ---
Removed 3ml of air from right wrist TR band. RIght wrist site without signs or symptoms of active bleeding at this time. Palpable right radial pulse. No distress noted. Family at bedside. Call light within reach. Side rails elevated x2. Stretcher in low and locked position.
--- NOTE | 2018-08-03 10:25 | NUR ---
Patient voided 100ml without difficulty via urinal
--- NOTE | 2018-08-03 10:48 | NUR ---
Removed 3ml of air from right wrist TR band. RIght wrist site appears to not have any signs of active bleeding at this time. palpable right radial pulse. No distress noted.
--- NOTE | 2018-08-03 11:11 | NUR ---
Removed 3ml of air from right wrist TR band. No signs or symptoms of active bleeding to right wrist. Palpable right radial pulse. Patient tolerated well.
--- NOTE | 2018-08-03 11:26 | NUR ---
Removed 1ml of air from right wrist TR band. Patient tolerated well. No signs or symptoms of active bleeding at this time to right wrist. Palpable right radial pulse.
--- NOTE | 2018-08-03 11:30 | NUR ---
TR band removed from right wrist and dressing applied per protocol. Patient and educated on activity restrictions, dressing care, signs and symptoms to look for: when to call the doctor and when to come back to the hospital. Patient and verbalized understanding.
--- NOTE | 2018-08-03 11:50 | NUR ---
Dr. Ge notified patient having pain to left flank, nausea and is diaphoretic each time he voids. Notified Dr. Ge patient has history of kidney stones. Dr. Ge stated to order urinalysis with urine culture and to notify her of results. 08/03/18 1200: Notified Dr. Ge of patient with history of dementia and keeps forgetting to not use right wrist. Dr. Ge ordered right arm sling for patient's right arm.
--- NOTE | 2018-08-03 12:00 | NUR ---
Patient voided 600ml via urinal.
[2018-08-03 12:18] LABS: CLARITY,URINE SL CLOUDY (CLEAR); COLOR,URINE YELLOW (YELLOW); LEUKOCYTE ESTERASE ,URINE NEGATIVE (NEGATIVE); NITRITE,URINE NEGATIVE (NEGATIVE)
[2018-08-03 12:19] LABS: BILIRUBIN,URINE NEGATIVE (NEGATIVE); KETONES,URINE NEGATIVE (NEGATIVE); PROTEIN,URINE DIPSTICK NEGATIVE (NEGATIVE); URINE UROBILINOGEN 0.2 mg/dL (0.2 - 1)
[2018-08-03 12:36] LABS: EPITHELIAL CELLS,URINE RARE /LPF; RBC,URINE 21-50 /HPF (0-5)
--- NOTE | 2018-08-03 13:34 | NUR ---
Notified Dr. Ge of urinalysis results. Dr. Ge stated she will check with radiology in regards to CT kidney stone protocol. Patient appears to be sleeping in no signs of acute distress at this time. Respirations even and unlabored on room air. SLing to right arm in place. Dressing to right wrist is clean,dry, and intact without signs or symptoms of active bleeding at this time.
--- NOTE | 2018-08-03 14:00 | NUR ---
patient void 300ml via urinal clear yellow urine. Patient denies pain or nausea at this time.
--- NOTE | 2018-08-03 14:30 | NUR ---
Notified Dr. Ge via phone that patient has been without left flank pain and nausea for approximately 1.5 hours. Patient stated he voided twice without pain or nausea clear yellow urine. Dr. Ge stated Ok to discharge patient home if no flank pain and to follow up with PCP.
--- NOTE | 2018-08-03 14:49 | NUR ---
Discharge instructions provided to patient and . Lasix prescription given to patient's . Lasix education handout provided to patient and . Reviewed new medication side effects, activity restrictions, dressing care, follow up appointments, diet, and what signs and symptoms to look for when to call the doctor and when to call 911. Patient and family verbalized understanding with no questions at this time. IV to left hand removed and dressing placed per protocol. Dressing to left hand is clean,dry, and intact. 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 Right arm sling in place. Right wrist dressing is clean,dry, and intact with palpable right radial pulse. 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 Patient stable and appeared to be in no signs of acute distress at time of discharge.
--- NOTE | 2018-08-03 18:51 | Operative Report ---
DATE OF PROCEDURE: August 03, 2018 PROCEDURES PERFORMED 1. Left heart catheterization. 2. Selective coronary angiography. INDICATIONS: Abnormal nuclear stress test. SEDATION 1. Midazolam 3 mg. 2. Fentanyl 75 mcg. CONSENT: Informed consent was obtained and documented in the chart. PROCEDURE IN DETAIL: The patient was brought to the cardiac catheterization laboratory in a fasting state after written informed consent was obtained. Bilateral groins and right wrist were prepped and draped in the usual sterile fashion. Lidocaine 1% was infiltrated over the right wrist to achieve local anesthesia. The right radial artery was accessed with a micropuncture needle. A [place] long sheath was placed via modified Seldinger technique. A 5[place] TIG was inserted, advanced into the ascending aorta and left ventricle under fluoroscopic guidance. Hemodynamic measurements were obtained. The catheter was then withdrawn into the ascending aorta, and the left and right coronary arteries were cannulated under fluoroscopic guidance. Selective coronary angiography were performed. The TIG was removed followed by the [place] sheath. Adequate hemostasis was achieved with TR band. Patient had no immediate complications. FINDINGS 1. The left main artery trifurcates into the left anterior descending, ramus, and circumflex arteries. There is 50% stenosis of the distal left main. 2. The left anterior descending is a moderate caliber vessel that wraps around the apex. There is 50% to 60% stenosis in the mid LAD as well as 70% stenosis in the first diagonal. 3. The ramus is a small caliber vessel without angiographic evidence of disease. 4. The circumflex is a large caliber vessel, which gives rise to a large branching OM1. The proximal circumflex is heavily calcified with 90% stenosis at the ostium. 5. The RCA is heavily calcified. It is occluded in the proximal segment. The PDA is patent and fills via left to right collaterals. 4. LV 121/13 mmHg, LVEDP 21 mmHg. The aortic pressure was 123/71 mmHg. There was no gradient on pullback. IMPRESSION: Multivessel coronary artery disease. RECOMMENDATIONS: We will diurese the patient. Aggressive risk factor modification. Patient will be evaluated for coronary artery bypass surgery. Job#: [id number] JESSE HELMS
== END | disposition home or self-care (01) ==
LOC: CATH LAB 06:28
PROVIDERS: ATTEND Internal Medicine
DX: I25.118 Atherosclerotic heart disease of native coronary artery with other forms of angina pectoris (principal); I26.09 Other pulmonary embolism with acute cor pulmonale; R94.39 Abnormal result of other cardiovascular function study; I10 Essential (primary) hypertension; E78.5 Hyperlipidemia, unspecified; E11.8 Type 2 diabetes mellitus with unspecified complications; G45.9 Transient cerebral ischemic attack, unspecified; Z01.812 Encounter for preprocedural laboratory examination; Z79.02 Long term (current) use of antithrombotics/antiplatelets; Z79.84 Long term (current) use of oral hypoglycemic drugs; Z68.38 Body mass index [BMI] 38.0-38.9, adult
CPT/HCPCS: 36415 ×2; 80048; 80061; 81001; 82948; 85025; 85610; 87086; 93458; C1887; J1644; J1940; J2001; J2250; J7030; Q9967

== ENCOUNTER 2019-01-23 10:50 | Observation (INO) | payer OTHER, MEDICARE ==
[~2019-01-23] VITALS: Ht 175.3 cm; Wt 110.9 kg
[~2019-01-23 10:50] MED LIST changes: -FENTANYL CITRATE/PF 100MCG/2 ML INJ ONE; -FUROSEMIDE INJ 10 MG/ML 4 ML VIAL ONE; -HEPARIN SOD (PORCINE) 1000 UNIT/ML 30ML ONE; -HEPARIN SOD/SOD CHLORIDE 2,000 ML ONE; -IOPAMIDOL 370 MG/ML 200 ML INFUS..BTL INJ ONE; -LIDOCAINE HCL 2% LOCAL 20 ML VIAL ONE; -MIDAZOLAM HCL 2 MG/2 ML VIAL ONE; -NITROGLYCERIN/D5W 200 MCG/ML 250 ML ONE; -SODIUM CHLORIDE 0.9% 1000ML 1,000 ML ONE; -VERAPAMIL HCL 2.5 MG/ML 2 ML VIAL ONE
--- OUTSIDE RECORDS SUMMARY | 2019-01-23 10:53 | XMS REPORT | Continuity of Care Document ---
Author Author [email or web address] Address Unknown Phone Unavailable Care Team Providers Care Serials Librarian Name Role Phone [employer] Unavailable Unavailable Problems Problem Status Onset Date Classification Date Reported Comments Source DIABETES MELLITUS Active 01/08/2014 Condition 01/08/2014 [facility] PTCA - HX OF Active 01/08/2014 Condition 01/08/2014 [facility] CAD Active Condition 01/08/2014 [facility] HYPERTENSION Active Condition 01/08/2014 [facility] HYPERCHOLESTEROLEMIA Active Condition 01/08/2014 [facility] SLEEP APNEA Active Condition 01/08/2014 [facility] Bradycardia Active Problem 04/10/2018 [facility] Chest pain Active Problem 04/10/2018 [facility] Dementia Active Problem 04/10/2018 [facility] Dizziness Active Problem 04/10/2018 [facility] Pulmonary embolism Active Problem 04/10/2018 [facility] Medications Medication Details Route Status Patient Instructions Ordering Provider Order Date Source Rivaroxaban (Xarelto) 15 Mg Tablet Twice A Day Active Alexander 04/09/2018 [facility] Rivaroxaban (Xarelto) 20 Mg Tablet Daily Active START THIS MED AFTER FINISHING 30 DAYS OF XARELTO 15MG PO BID Alexander 04/09/2018 [facility] Clopidogrel Bisulfate (Plavix) 75 Mg Tablet, 75 Mg Oral Daily Active 04/09/2018 [facility] Metoprolol Succinate 50 Mg Tab.er.24h, 50 Mg Oral Daily Active 03/15/2018 [facility] Olmesartan Medoxomil (Benicar) 20 Mg Tablet, 40 Mg Oral Daily Active 03/15/2018 [facility] Amlodipine/Valsartan (Exforge 10-160 Mg Tablet) 1 Each Tablet, 10-160 Mg Oral Daily Active 03/12/2018 [facility] Amoxicillin/Potassium Clav (Augmentin 875-125 Tablet) 1 Each Tablet, 875 Mg Oral Twice A Day Active 03/12/2018 [facility] Amylas/Cellu/Lipas/Protea/Bile (Warren Armstrong 6,000 Units Capsule) 1 Ea Cap, 6000 Mg Oral Every Morning Active 03/12/2018 [facility] Aspirin (Aspir 81) 81 Mg Tablet.dr, 81 Mg Oral Daily Active 03/12/2018 [facility] Bupropion Hcl (Budeprion Sr) 150 Mg Tablet.er, 150 Mg Oral Twice A Day Active 03/12/2018 [facility] Cyclobenzaprine Hcl (Flexeril) 5 Mg Tablet, 5 Mg Oral Daily Prn Active 03/12/2018 [facility] Escitalopram Oxalate (Lexapro) 10 Mg Tablet, 5 Mg Oral Bedtime Active 03/12/2018 [facility] Hydrocodone Bit/Acetaminophen ([place] 10-325 Tablet) 1 Each Tablet, 10-325 Mg Oral Q6hr Prn Active 03/12/2018 [facility] Meloxicam 15 Mg Tablet, 15 Mg Oral Daily Prn Active 03/12/2018 [facility] Metoprolol Succinate (Toprol Xl) 25 Mg Tab.er.24h, 25 Mg Oral Bedtime Active 03/12/2018 [facility] Ondansetron Hcl (Zofran*) 4 Mg Tablet, 4 Mg Oral Q4hr As Needed Active 03/12/2018 [facility] ESCITALOPRAM OXALATE 10 MG TABS 1 tablet daily Active 12/16/2013 [facility] ASPIRIN EC LOW DOSE 81 MG TBEC ONE PO QD Active 06/12/2013 [facility] ASPIRIN EC LOW DOSE 81 MG TBEC ONE PO QD Active 06/12/2013 [facility] Amlodipine Besylate (Norvasc) 5 Mg Tablet, Twice A Day Active 01/01/2013 [facility] Aspirin (Ivy Aspirin) 325 Mg Tablet, Active 01/01/2013 [facility] Citalopram Hydrobromide (Citalopram Hbr) 10 Mg Tablet, Daily Active 01/01/2013 [facility] Lisinopril (Prinivil) 20 Mg Tablet, Twice A Day Active 01/01/2013 [facility] Metformin Hcl (Glucophage) 500 Mg Tablet, Twice A Day Active 01/01/2013 [facility] NORVASC 10 MG TABS No Longer Active 10/22/2012 [facility] LIPITOR 10 MG TABS No Longer Active 10/22/2012 [facility] LISINOPRIL 20 MG TABS No Longer Active 10/22/2012 [facility] CELEBREX 200 MG CAPS No Longer Active 10/22/2012 [facility] ZOLOFT 100 MG TABS No Longer Active 10/22/2012 [facility] BESIVANCE 0.6 % SUSP 1 gtt tid No Longer Active 10/22/2012 [facility] LIPITOR [...] qd No Longer Active 05/21/2012 [facility] FLEXERIL 5 MG TABS 1 po q pm No Longer Active 05/21/2012 [facility] MOBIC 15 MG TABS 1 po qd Active 05/21/2012 [facility] BUDEPRION SR 150 MG [id number] 1 po bid Active 04/16/2012 [facility] LEXAPRO 10 MG TABS 1 po qd No Longer Active 03/19/2012 [facility] LEXAPRO 10 MG TABS 1 po qd Active 03/19/2012 [facility] METFORMIN HCL 1000 [...] MG TABS 1 po bid Active 10/17/2011 [facility] Amlodipine Besylate 10 Mg Tablet Daily Active [facility] Aspirin (Aspirin Ec) 81 Mg Tablet.dr Daily Active [facility] Bupropion Hcl (Bupropion Xl) 300 Mg Tab.er.24h Daily Active [facility] Donepezil Hcl (Aricept) 5 Mg Tablet Bedtime Active [facility] Isosorbide Mononitrate 20 Mg Tablet Daily Active [facility] Lorazepam 0.5 Mg Tablet Twice A Day as needed for Prn Active [facility] Memantine Hcl (Namenda) 10 Mg Tablet Twice A Day Active [facility] Metformin Hcl (Glucophage) 1,000 Mg Tablet Twice A Day Active [facility] Olmesartan Medoxomil (Benicar) 20 Mg Tablet Daily Active [facility] Pravastatin Sodium 20 Mg Tablet Bedtime Active [facility] Allergies, Adverse Reactions, Alerts Substance Category Reaction Severity Reaction type Status Date Reported Comments Source No Known Drug Allergies Mild Allergy to Substance Active 03/12/2018 [facility] Immunizations No Data Provided for This Section Results Order Name Results Value Reference Range Date Interpretation Comments Source Automated blood basophil count (count/volume) Automated blood basophil count (count/volume) 0.1 0.0 - 0.1 04/10/2018 [facility] Automated blood basophil count as percentage of total leukocytes Automated blood basophil count as percentage of total leukocytes 1.0 0.0 - 1.0 04/10/2018 [facility] Automated blood eosinophil count Automated blood eosinophil count 0.5 0.0 - 0.4 04/10/2018 [facility] Automated blood eosinophil count as percentage of total leukocytes Automated blood eosinophil count as percentage of total leukocytes 6.6 0.0 - 6.0 04/10/2018 [facility] Automated blood hematocrit (volume fraction) Automated blood hematocrit (volume fraction) 43.6 38.2 - 49.6 04/10/2018 [facility] Automated blood lymphocyte count as percentage ot total leukocytes Automated blood lymphocyte count as percentage ot total leukocytes 24.5 18.0 - 39.1 04/10/2018 [facility] Automated blood monocyte count as percentage of total leukocytes Automated blood monocyte count as percentage of total leukocytes 9.7 4.4 - 11.3 04/10/2018 [facility] Automated blood neutrophil count Automated blood neutrophil count 4.6 2.1 - 6.9 04/10/2018 [facility] Automated blood platelet count (count/volume) Automated blood platelet count (count/volume) 259 140 - 360 04/10/2018 [facility] Automated blood segmented neutrophil count as percentage of total leukocytes Automated blood segmented neutrophil count as percentage of total leukocytes 57.6 38.7 - 80.0 04/10/2018 [facility] Automated erythrocyte mean corpuscular hemoglobin (mass per erythrocyte) Automated erythrocyte mean corpuscular hemoglobin (mass per erythrocyte) 30.3 28 - 32 04/10/2018 [facility] Automated erythrocyte mean corpuscular hemoglobin concentration measurement (mass/volume) Automated erythrocyte mean corpuscular hemoglobin concentration measurement (mass/volume) 33.9 31 - 35 04/10/2018 [facility] Automated erythrocyte mean corpuscular volume Automated erythrocyte mean corpuscular volume 89.3 81 - 99 04/10/2018 [facility] Blood erythrocytes automated count (number/volume) Blood erythrocytes automated count (number/volume) 4.88 4.3 - 5.7 04/10/2018 [facility] Blood hemoglobin measurement (moles/volume) Blood hemoglobin measurement (moles/volume) 14.8 14.0 - 18.0 04/10/2018 [facility] Blood leukocytes automated count (number/volume) Blood leukocytes automated count (number/volume) 7.97 4.8 - 10.8 04/10/2018 [facility] Blood lymphocytes count (number/volume) Blood lymphocytes count (number/volume) 2.0 1.0 - 3.2 04/10/2018 [facility] Blood monocytes automated count (number/volume) Blood monocytes automated count (number/volume) 0.8 0.2 - 0.8 04/10/2018 [facility] Estimated glomerular filtration rate (GFR) determination Estimated glomerular filtration rate (GFR) determination >60 60 04/10/2018 [facility] Glucose measurement Glucose measurement 132 74 - 118 04/10/2018 [facility] Serum or plasma anion gap Serum or plasma anion gap 17.0 8 - 16 04/10/2018 [facility] Serum or plasma calcium measurement (mass/volume) Serum or plasma calcium measurement (mass/volume) 9.2 8.4 - 10.2 04/10/2018 [facility] Serum or plasma carbon dioxide, total measurement (moles/volume) Serum or plasma carbon dioxide, total measurement (moles/volume) 22 22 - 29 04/10/2018 [facility] Serum or plasma chloride measurement (moles/volume) Serum or plasma chloride measurement (moles/volume) 107 98 - 107 04/10/2018 [facility] Serum or plasma creatinine measurement (mass/volume) Serum or plasma creatinine measurement (mass/volume) 1.09 0.72 - 1.25 04/10/2018 [facility] Serum or plasma magnesium measurement (mass/volume) Serum or plasma magnesium measurement (mass/volume) 2.0 1.3 - 2.1 04/10/2018 [facility] Serum or plasma potassium measurement (moles/volume) Serum or plasma potassium measurement (moles/volume) 4.0 3.5 - 5.1 04/10/2018 [facility] Serum or plasma sodium measurement (moles/volume) Serum or plasma sodium measurement (moles/volume) 142 136 - 145 04/10/2018 [facility] Serum or plasma urea nitrogen measurement (mass/volume) Serum or plasma urea nitrogen measurement (mass/volume) 10 7 - 26 04/10/2018 [facility] Serum or plasma urea nitrogen/creatinine mass ratio Serum or plasma urea nitrogen/creatinine mass ratio 9 6 - 25 04/10/2018 [facility] Red Cell Distribution Width 13.5 11.7 - 14.4 04/10/2018 [facility] IM GRANULOCYTES % 0.6 0.0 - 1.0 04/10/2018 [facility] Absolute Immature Granulocyte (auto 0.05 0 - 0.1 04/10/2018 [facility] Capillary blood glucose measurement by glucometer (mass/volume) Capillary blood glucose measurement by glucometer (mass/volume) 160 70 - 120 04/09/2018 [facility] Plasma globulin measurement (mass/volume) Plasma globulin measurement (mass/volume) 3.3 2.3 - 3.5 04/09/2018 [facility] Serum or plasma alanine aminotransferase measurement (enzymatic activity/volume) Serum or plasma alanine aminotransferase measurement (enzymatic activity/volume) 61 0 - 55 04/09/2018 [facility] Serum or plasma albumin measurement (mass/volume) Serum or plasma albumin measurement (mass/volume) 3.5 3.5 - 5.0 04/09/2018 [facility] Serum or plasma albumin/globulin mass ratio Serum or plasma albumin/globulin mass ratio 1.1 0.8 - 2.0 04/09/2018 [facility] Serum or plasma alkaline phosphatase measurement (enzymatic activity/volume) Serum or plasma alkaline phosphatase measurement (enzymatic activity/volume) 80 40 - 150 04/09/2018 [facility] Serum or plasma cholesterol in HDL measurement (mass/volume) Serum or plasma cholesterol in HDL measurement (mass/volume) 32 40 - 60 04/09/2018 [facility] Serum or plasma cholesterol in LDL measurement (mass/volume) Serum or plasma cholesterol in LDL measurement (mass/volume) 75 60 - 130 04/09/2018 [facility] Serum or plasma cholesterol measurement (mass/volume) Serum or plasma cholesterol measurement (mass/volume) 141 0 - 199 04/09/2018 [facility] Serum or plasma protein measurement (mass/volume) Serum or plasma protein measurement (mass/volume) 6.8 6.5 - 8.1 04/09/2018 [facility] Serum or plasma total bilirubin measurement (mass/volume) Serum or plasma total bilirubin measurement (mass/volume) 0.6 0.2 - 1.2 04/09/2018 [facility] Serum or plasma total cholesterol/cholesterol in HDL mass ratio Serum or plasma total cholesterol/cholesterol in HDL mass ratio 4.4 3.9 - 4.7 04/09/2018 [facility] Serum or plasma triglyceride measurement (mass/volume) Serum or plasma triglyceride measurement (mass/volume) 172 0 - 149 04/09/2018 [facility] Hemoglobin A1c Percent 6.5 4.0 - 7.0 04/09/2018 [facility] Aspartate Amino Transf (AST/SGOT) 44 5 - 34 04/09/2018 [facility] Activated partial thromboplastin time (aPTT) in platelet poor plasma bycoagulation assay Activated partial thromboplastin time (aPTT) in platelet poor plasma bycoagulation assay 35.9 23.8 - 35.5 04/09/2018 [facility] INR in Platelet poor plasma by Coagulation assay INR in Platelet poor plasma by Coagulation assay 1.06 04/09/2018 [facility] Prothrombin time (PT) in platelet poor plasma by coagulation assay Prothrombin time (PT) in platelet poor plasma by coagulation assay 14.8 11.9 - 14.5 04/09/2018 [facility] Serum or plasma thyrotropin measurement by detection limit <=0.005 miu/l (units/volume) Serum or plasma thyrotropin measurement by detection limit <=0.005 miu/l (units/volume) 3.366 0.350 - 4.940 04/09/2018 [facility] Serum or plasma thyroxine (T4) free measurement (mass/volume) Serum or plasma thyroxine (T4) free measurement (mass/volume) 0.76 0.9 - 1.8 04/09/2018 [facility] Serum or plasma creatine kinase MB measurement (mass/volume) Serum or plasma creatine kinase MB measurement (mass/volume) 1.20 0 - 5.0 04/08/2018 [facility] Serum or plasma creatine kinase measurement (enzymatic activity/volume) Serum or plasma creatine kinase measurement (enzymatic activity/volume) 81 30 - 200 04/08/2018 [facility] Troponin I measurement by highly sensitive enzyme immunoassay Troponin I measurement by highly sensitive enzyme immunoassay <0.001 0 - 0.300 04/08/2018 [facility] Automated urine sediment leukocyte count by microscopy (number/high power field) Automated urine sediment leukocyte count by microscopy (number/high power field) <5 0 - 5 04/08/2018 [facility] Bacteria detection in urine sediment by light microscopy Bacteria detection in urine sediment by light microscopy FEW NONE 04/08/2018 [facility] Epithelial cells detection in urine sediment by light microscopy Epithelial cells detection in urine sediment by light microscopy FEW NONE 04/08/2018 [facility] Erythrocytes detection in urine sediment by light microscopy Erythrocytes detection in urine sediment by light microscopy NONE 0 - 5 04/08/2018 [facility] Mucus detection in urine sediment by light microscopy Mucus detection in urine sediment by light microscopy FEW RARE 04/08/2018 [facility] Specific gravity of Urine by Test strip Specific gravity of Urine by Test strip 1.030 1.010 - 1.025 04/08/2018 [facility] Urine clarity Urine clarity CLEAR CLEAR 04/08/2018 [facility] Urine color determination Urine color determination YELLOW YELLOW 04/08/2018 [facility] Urine erythrocytes detection Urine erythrocytes detection NEGATIVE NEGATIVE 04/08/2018 [facility] Urine glucose detection Urine glucose detection NEGATIVE NEGATIVE 04/08/2018 [facility] Urine ketones detection by automated test strip Urine ketones detection by automated test strip NEGATIVE NEGATIVE 04/08/2018 [facility] Urine leukocyte esterase detection by dipstick Urine leukocyte esterase detection by dipstick NEGATIVE NEGATIVE 04/08/2018 [facility] Urine nitrite detection Urine nitrite detection NEGATIVE NEGATIVE 04/08/2018 [facility] Urine pH measurement by automated test strip Urine pH measurement by automated test strip 6 5 - 7 04/08/2018 [facility] Urine protein measurement by test strip (mass/volume) Urine protein measurement by test strip (mass/volume) NEGATIVE NEGATIVE 04/08/2018 [facility] Urine total bilirubin measurement (mass/volume) Urine total bilirubin measurement (mass/volume) NEGATIVE NEGATIVE 04/08/2018 [facility] Urine urobilinogen measurement by test strip (mass/volume) Urine urobilinogen measurement by test strip (mass/volume) 0.2 0.2 - 1 04/08/2018 [facility] Fibrin D-dimer DDU measurement in platelet poor plasma (mass/volume) Fibrin D-dimer DDU measurement in platelet poor plasma (mass/volume) 5.14 0.00 - 0.45 04/08/2018 [facility] Serum or plasma amylase measurement (enzymatic activity/volume) Serum or plasma amylase measurement (enzymatic activity/volume) 43 25 - 125 04/08/2018 [facility] Serum or plasma lipase measurement (enzymatic activity/volume) Serum or plasma lipase measurement (enzymatic activity/volume) 14 8 - 78 04/08/2018 [facility] B-Type Natriuretic Peptide 16.1 0 - 100 04/08/2018 [facility] Blood cobalamin (vitamin B12) measurement (mass/volume) Blood cobalamin (vitamin B12) measurement (mass/volume) 441 213 - 816 03/13/2018 [facility] Serum or plasma folate measurement (mass/volume) Serum or plasma folate measurement (mass/volume) 5.1 7.0 - 15.4 03/13/2018 [facility] Chemistry SODIUM 139 10/19/2007 [facility] POTASSIUM 4.4 10/19/2007 [facility] BUN 14 10/19/2007 [facility] CREATININE 0.97 10/19/2007 [facility] ALBUMIN 4.5 10/19/2007 [facility] CALCIUM 9.3 10/19/2007 [facility] SGOT (AST) 32 10/19/2007 [facility] SGPT (ALT) 54 10/19/2007 [facility] ALK PHOS 120 10/19/2007 [facility] CHOLESTEROL 131 10/19/2007 [facility] HDL 36 10/19/2007 [facility] LDL 72 10/19/2007 [facility] TRIGLYCERIDE 117 10/19/2007 [facility] Hematology HCT 45.7 10/19/2007 [facility] Hematology HGB 15.5 10/19/2007 [facility] H[facility]ology PLATELETS 243 10/19/2007 [facility] Hematology HCT 47.1 02/08/2006 [facility] Hematology HGB 16.4 02/08/2006 [facility] Hematology PLATELETS 249 02/08/2006 [facility] Pathology Reports No Data Provided for This Section Diagnostic Reports No Data Provided for This Section Consultation Notes No Data Provided for This Section Discharge Summaries No Data Provided for This Section History and Physicals No Data Provided for This Section Vital Signs Vital Sign Value Date Comments Source Weight 246 01/08/2014 [facility] Systolic (mm [...] Provider ADM Date DC Date Status Source [facility] Cardiology Office Visit [id number] Elmer Vides MD 10/22/2012 10/22/2012 [facility] Cardiology Office Visit [id number] Elmer Vides MD 06/12/2013 06/12/2013 [facility] Cardiology Office Visit [id number] Elmer Vides MD 01/08/2014 01/08/2014 [facility] Discharged Inpatient [id number] KARY VILLELA MD 03/14/2018 03/15/2018 [facility] Discharged Inpatient [id number] CHERELLE CIFUENTES MD 04/08/2018 04/10/2018 [facility] Procedures Procedure Code Date Perfomer Comments Source Computed tomography of chest with contrast [id number] 04/08/2018 [facility] Magnetic resonance imaging of brain without contrast [id number] 03/13/2018 [facility] Computed tomography of brain without radiopaque contrast [id number] 03/12/2018 [facility] Assessment and Plan No Data Provided for This Section Plan of Care Plan of Care Date Source Discharge Date 04/10/18 11:04am Disposition HOME, SELF-CARE Instructions/Education Provided Pulmonary Embolism Prescriptions See Medication Section Referrals GAY URBAN MD (Cardiology) Entered Date: 04/09/2018 9:31am Address: [address] [place] [id number] Additional Instructions/Education F/U WITH PCP IN 1-2 WEEKS 04/10/2018 [facility] Social History Social History Date Source Social History Problem Response Recorded Date/Time Onset Date Status Hx Psychiatric Problems No 08/30/2013 2:52pm Not Applicable Not Applicable Hx Eating Disorder No 08/30/2013 2:52pm Not Applicable Not Applicable Hx Substance Use Disorder No 08/30/2013 2:52pm Not Applicable Not Applicable Hx Depression Yes 08/30/2013 2:52pm Not Applicable Not Applicable Hx Alcohol Use Yes 08/30/2013 2:52pm Not Applicable Not Applicable Hx Substance Use Treatment No 08/30/2013 2:52pm Not Applicable Not Applicable Hx Physical Abuse No 08/30/2013 2:52pm Not Applicable Not Applicable Smoking Status Start Date Stop Date Former smoker 04/10/2018 [facility] Family History No Data Provided for This Section Advance Directives Order Name Results Value Date Source Advance Directives Advance Directives Directive Response Recorded Date/Time Does the patient have an advance directive? No 04/08/18 7:51am If yes, is advance directive on file with [facility]? No 04/08/18 7:51am If not on file with [facility] will patient provide a copy? Yes 04/08/18 7:51am Do you have a Directive to Physician? No 04/08/18 5:24am Do you have a Medical Power of Eligibility Manager? No 04/08/18 5:24am Do you have an out of hospital Do Not Resuscitate Order? No 04/08/18 5:24am Do you have any special needs we should be aware of? No 04/08/18 5:24am Do you have a support person here with you today? Yes 04/08/18 5:24am Did patient receive Notice of Privacy Practices? Yes 04/08/18 5:24am Did patient receive patient rights and responsibilities? Yes 04/08/18 5:24am 04/10/2018 [facility] Functional Status No Data Provided for This Section
--- OUTSIDE RECORDS SUMMARY | 2019-01-23 10:54 | XMS REPORT | Summary of Care ---
Author Author CLARKE BERMUDEZ M.D. Organization Unknown Address Unknown Phone Unavailable Care Team Providers Care Recruiting Assistant Name Role Phone CLARKE BERMUDEZ M.D. Unavailable Unavailable Keo Olivas MD Unavailable Unavailable CLARKE BERMUDEZ MD Unavailable Unavailable Unavailable Unavailable Functional Status Name Dates Details Functional status health issues are not documented Status: Name Dates Details Cognitive status health issues are not documented Status: Problems Name Dates Details Coronary artery disease (414.00, I25.10) Status: Active Medications Name Dates Details metFORMIN HCl - 1000 MG Oral Tablet TAKE 1 TABLET TWICE DAILY. Active buPROPion HCl ER (XL) 300 MG Oral Tablet Extended Release 24 Hour TAKE 1 TABLET DAILY. * Refills: 0 Active Escitalopram Oxalate 20 MG Oral Tablet TAKE 1 TABLET DAILY. * Refills: 0 Active amLODIPine Besylate 10 MG Oral Tablet TAKE 1 TABLET DAILY. * Refills: 0 Active Pravastatin Sodium 20 MG Oral Tablet TAKE 1 TABLET DAILY. * Refills: 0 Active 90 Tablet Bottle Donepezil HCl - 10 MG Oral Tablet TAKE 1 TABLET DAILY. * Refills: 0 Active Xarelto 15 MG Oral Tablet TAKE 1 TABLET TWICE DAILY * Refills: 0 Active Isosorbide Mononitrate ER 30 MG Oral Tablet Extended Release 24 Hour TAKE 1 TABLET DAILY. * Refills: 0 Active Olmesartan Medoxomil 40 MG Oral Tablet TAKE 1 TABLET DAILY. * Refills: 0 Active Memantine HCl - 10 MG Oral Tablet TAKE 1 TABLET TWICE DAILY. * Refills: 0 Active LORazepam 0.5 MG Oral Tablet TAKE 1 TABLET TWICE DAILY. * Refills: 0 Active Furosemide 40 MG Oral Tablet TAKE 1 TABLET DAILY. * Refills: 0 Active Metoprolol Succinate ER 25 MG Oral Tablet Extended Release 24 Hour TAKE 1 TABLET BEDTIME * Quantity: 90 Refills: 3 CLARKE BERMUDEZ M.D. * Start : 09-Nov-2018 Active Allergies and Adverse Reactions Name Dates Details No Known Drug Allergies (Allergy) Status: Active Past Medical History Name Dates Details History of deep venous thrombosis (V12.51, Z86.718) Status: Resolved History of diabetes mellitus (V12.29, Z86.39) Status: Resolved History of hyperlipidemia (V12.29, Z86.39) Status: Resolved History of hypertension (V12.59, Z86.79) Status: Resolved History of malignant neoplasm of prostate (V10.46, Z85.46) Status: Resolved History of Multiple kidney stones (592.0, N20.0) Status: Resolved History of pulmonary embolism (V12.55, Z86.711) Status: Resolved History of stroke (V12.54, Z86.73) Status: Resolved Procedures Procedure Dates Details PET CT Myocard Multi Studies Rest and Stress [id number] Date: 02-Nov-2018 History of Coronary artery stent placement Completed Immunization Name Dates Details Immunizations not documented Family History Name Dates Details Family history of myocardial infarction (V17.3, Z82.49) Status: Active Social History Name Dates Details - Status: Name Dates Details Never smoker Vital Signs Date Test Result Details [id number] BP Systolic 122 mm[Hg] Status: Comments: Location: LUE; Position: Sitting BP Diastolic 71 mm[Hg] Status: Comments: Location: LUE; Position: Sitting Height 69 in Status: Weight 243 lb Status: Body Mass Index Calculated 35.89 kg/m2 Status: Body Surface Area Calculated 2.24 m2 Status: Heart Rate 59 /min Status: Comments: Location: L Radial; O2 SAT 96 % Status: Comments: Source: RA Results Date Description Value Details Results not documented Plan of Care Name Dates Details Planned Observations Planned Goals not documented Planned Encounters Appointment; CLARKE BERMUDEZ M.D. On: 30-May-2019 13:45 Interventions Provided Plan* -Continue medical management. * RTC in 3 months. Instructions Name Dates Details Instructions not documented Encounters Appointment; Raimundo Dave M.D. Encounter Diagnosis: Problem not documented On: 08-Aug-2018 9:15 Appointment; CLARKE BERMUDEZ M.D. Encounter Diagnosis: Problem not documented On: 09-Aug-2018 13:00 Appointment; PROCEDURES, CARDIO Encounter Diagnosis: Problem not documented On: 24-Aug-2018 9:00 Appointment; CLARKE BERMUDEZ M.D. Encounter Diagnosis: Problem not documented On: 01-Nov-2018 16:00 Appointment; CLARKE BERMUDEZ M.D. Encounter Diagnosis: Problem not documented On: 13-Dec-2018 13:00
[2019-01-23] MEDS ORDERED: ASPIRIN 81 MG CHEW TAB PO ONE (11:15)
--- NOTE | 2019-01-23 12:21 | Diagnostic Imaging Report ---
CT BRAIN WO HISTORY: Altered mental status, right facial droop COMPARISON: Head CT 03/12/2018, MRI of the brain 03/13/2018 TECHNIQUE: Noncontrast axial scans were obtained from skull base to the vertex. Coronal and sagittal reconstructions obtained from the axial data. One or more of the following dose reduction techniques were used: Automated exposure control, adjustment of the mA and/or kV according to patient size, and/or utilization of iterative reconstruction technique. DISCUSSION: Scalp/Skull: Unremarkable. Brain sulci: Mildly prominent. Ventricles: Stable moderate supratentorial ventriculomegaly is slightly are proportional sulcal prominence. Extra-axial spaces: No masses or fluid collections. Carotid siphon and vertebral artery calcifications are present. Parenchyma: Mild to moderate periventricular white matter hypodensities are likely chronic microvascular ischemic changes. Otherwise, no mass, hemorrhage, or large vascular territory acute infarct. Dural sinuses: No abnormal densities. Sellar/Suprasellar region: Intact. Skull base: Intact. Incidental findings: Both ocular lenses are thinned. Partially visualized small left maxillary sinus retention cyst. IMPRESSION: 1. Unchanged moderate supratentorial ventriculomegaly is slightly out of proportion to sulcal prominence. Correlate for communicating hydrocephalus (i.e. normal pressure hydrocephalus). 2. Otherwise, no acute intracranial abnormalities. 3. Mild to moderate supratentorial chronic microvascular ischemic change. 4. Mild generalized cerebral volume loss. Signed by: Dr. Yevgeniy Carrington M.D. on 01/23/2019 12:18 PM
[2019-01-23 12:44] LABS: BASOPHILS # (AUTO) 0.1 (0.0-0.1); BASOPHILS % 0.9 % (0.0-1.0); EOSINOPHILS # (AUTO) 0.2 (0.0-0.4); EOSINOPHILS % 2.2 % (0.0-6.0); HEMOGLOBIN 15.3 g/dL (14.0-18.0); LYMPHOCYTES # (AUTO) 1.5 (1.0-3.2); LYMPHOCYTES % 21.7 % (18.0-39.1); MEAN CORPUSCULAR HEMOGLOBIN 29.9 pg (28-32); MEAN CORPUSCULAR VOLUME 87.9 fL (81-99); MONOCYTES # (AUTO) 0.6 (0.2-0.8); NEUTROPHILS # (AUTO) 4.5 (2.1-6.9); NEUTROPHILS % 65.8 % (38.7-80.0); PLATELET COUNT 254 x10e3/uL (140-360); RED BLOOD COUNT 5.12 x10e6/uL (4.3-5.7); RED CELL DISTRIBUTION WIDTH 13.7 % (11.7-14.4)
[2019-01-23 12:47] LABS: BILIRUBIN,URINE NEGATIVE (NEGATIVE); CLARITY,URINE CLEAR (CLEAR); COLOR,URINE YELLOW (YELLOW); KETONES,URINE TRACE (NEGATIVE); LEUKOCYTE ESTERASE ,URINE NEGATIVE (NEGATIVE); NITRITE,URINE NEGATIVE (NEGATIVE); PROTEIN,URINE DIPSTICK NEGATIVE (NEGATIVE); URINE UROBILINOGEN 0.2 mg/dL (0.2 - 1)
[2019-01-23 13:04] LABS: ANION GAP 16.7 mmol/L (8-16); BLOOD UREA NITROGEN 21 mg/dL (7-26); BUN/CREATININE RATIO 16 (6-25); CALCIUM 9.9 mg/dL (8.4-10.2); CARBON DIOXIDE 22 mmol/L (22-29); CHLORIDE 105 mmol/L (98-107); CREATINE KINASE 85 IU/L (30-200); CREATININE, SERUM 1.35 mg/dL (0.72-1.25); EST GLOMERULAR FILTRATION RATE 52 ML/MIN (60-); GLUCOSE 142 mg/dL (74-118); POTASSIUM 4.7 mmol/L (3.5-5.1); SODIUM 139 mmol/L (136-145)
[2019-01-23 13:07] LABS: INR 1.33; PROTHROMBIN TIME 17.1 seconds (11.9-14.5)
[2019-01-23 13:08] LABS: EPITHELIAL CELLS,URINE RARE /LPF; PARTIAL THROMBOPLASTIN TIME 38.8 seconds (23.8-35.5)
[2019-01-23] MEDS ORDERED: ONDANSETRON HCL INJ 2MG/ML 2ML 2 MG/ML VIAL IV PRN (16:45)
--- OUTSIDE RECORDS SUMMARY | 2019-01-23 16:47 | XMS REPORT | Continuity of Care Document ---
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 Name Role Phone Scarosso Information Singular Unavailable Unavailable Problems Problem Status Onset Date Classification Date Reported Comments Source DIABETES MELLITUS Active 01/08/2014 Condition 01/08/2014 [facility] PTCA - HX OF Active 01/08/2014 Condition 01/08/2014 Medical [facility] CAD Active Condition 01/08/2014 [facility] HYPERTENSION Active Condition 01/08/2014 [facility] HYPERCHOLESTEROLEMIA Active Condition 01/08/2014 [facility] SLEEP APNEA Active Condition 01/08/2014 [facility] Bradycardia Active Problem 04/10/2018 [facility] Chest pain Active Problem 04/10/2018 [facility] Dementia Active Problem 04/10/2018 [facility] Dizziness Active Problem 04/10/2018 [facility] Pulmonary embolism Active Problem 04/10/2018 [facility] Medications Medication Details Route Status Patient Instructions Ordering Provider Order Date Source Rivaroxaban (Xarelto) 15 Mg Tablet Twice A Day Active Alexander 04/09/2018 [facility] Rivaroxaban (Xarelto) 20 Mg Tablet Daily Active START THIS MED AFTER FINISHING 30 DAYS OF XARELTO 15MG PO BID Alexander 04/09/2018 [facility] Clopidogrel Bisulfate (Plavix) 75 Mg Tablet, 75 Mg Oral Daily Active 04/09/2018 [facility] Metoprolol Succinate 50 Mg Tab.er.24h, 50 Mg Oral Daily Active 03/15/2018 [facility] Olmesartan Medoxomil (Benicar) 20 Mg Tablet, 40 Mg Oral Daily Active 03/15/2018 [facility] Amlodipine/Valsartan (Exforge 10-160 Mg Tablet) 1 Each Tablet, 10-160 Mg Oral Daily Active 03/12/2018 [facility] Amoxicillin/Potassium Clav (Augmentin 875-125 Tablet) 1 Each Tablet, 875 Mg Oral Twice A Day Active 03/12/2018 [facility] Amylas/Cellu/Lipas/Protea/Bile (Warren Armstrong 6,000 Units Capsule) 1 Ea Cap, 6000 Mg Oral Every Morning Active 03/12/2018 [facility] Aspirin (Aspir 81) 81 Mg Tablet.dr, 81 Mg Oral Daily Active 03/12/2018 [facility] Bupropion Hcl (Budeprion Sr) 150 Mg Tablet.er, 150 Mg Oral Twice A Day Active 03/12/2018 [facility] Cyclobenzaprine Hcl (Flexeril) 5 Mg Tablet, 5 Mg Oral Daily Prn Active 03/12/2018 [facility] Escitalopram Oxalate (Lexapro) 10 Mg Tablet, 5 Mg Oral Bedtime Active 03/12/2018 [facility] Hydrocodone Bit/Acetaminophen ([place] 10-325 Tablet) 1 Each Tablet, 10-325 Mg Oral Q6hr Prn Active 03/12/2018 [facility] Meloxicam 15 Mg Tablet, 15 Mg Oral Daily Prn Active 03/12/2018 [facility] Metoprolol Succinate (Toprol Xl) 25 Mg Tab.er.24h, 25 Mg Oral Bedtime Active 03/12/2018 [facility] Ondansetron Hcl (Zofran*) 4 Mg Tablet, 4 Mg Oral Q4hr As Needed Active 03/12/2018 [facility] ESCITALOPRAM OXALATE 10 MG TABS 1 tablet daily Active 12/16/2013 [facility] ASPIRIN EC LOW DOSE 81 MG TBEC ONE PO QD Active 06/12/2013 [facility] ASPIRIN EC LOW DOSE 81 MG TBEC ONE PO QD Active 06/12/2013 [facility] Amlodipine Besylate (Norvasc) 5 Mg Tablet, Twice A Day Active 01/01/2013 [facility] Aspirin (Ivy Aspirin) 325 Mg Tablet, Active 01/01/2013 [facility] Citalopram Hydrobromide (Citalopram Hbr) 10 Mg Tablet, Daily Active 01/01/2013 [facility] Lisinopril (Prinivil) 20 Mg Tablet, Twice A Day Active 01/01/2013 [facility] Metformin Hcl (Glucophage) 500 Mg Tablet, Twice A Day Active 01/01/2013 [facility] NORVASC 10 MG TABS No Longer Active [...] 05/21/2012 [facility] BUDEPRION SR 150 MG [id number] 1 po bid Active 04/16/2012 [facility] [...] MG TABS 1 po bid Active 10/17/2011 [facility] Amlodipine Besylate 10 Mg Tablet Daily Active [facility] Aspirin (Aspirin Ec) 81 Mg Tablet.dr Daily Active [facility] Bupropion Hcl (Bupropion Xl) 300 Mg Tab.er.24h Daily Active [facility] Donepezil Hcl (Aricept) 5 Mg Tablet Bedtime Active [facility] Isosorbide Mononitrate 20 Mg Tablet Daily Active [facility] Lorazepam 0.5 Mg Tablet Twice A Day as needed for Prn Active [facility] Memantine Hcl (Namenda) 10 Mg Tablet Twice A Day Active [facility] Metformin Hcl (Glucophage) 1,000 Mg Tablet Twice A Day Active [facility] Olmesartan Medoxomil (Benicar) 20 Mg Tablet Daily Active [facility] Pravastatin Sodium 20 Mg Tablet Bedtime Active [facility] Allergies, Adverse Reactions, Alerts Substance Category Reaction Severity Reaction type Status Date Reported Comments Source No Known Drug Allergies Mild Allergy to Substance Active 03/12/2018 [facility] Immunizations No Data Provided for This Section Results Order Name Results Value Reference Range Date Interpretation Comments Source Automated blood basophil count (count/volume) Automated blood basophil count (count/volume) 0.1 0.0 - 0.1 04/10/2018 [facility] Automated blood basophil count as percentage of total leukocytes Automated blood basophil count as percentage of total leukocytes 1.0 0.0 - 1.0 04/10/2018 [facility] Automated blood eosinophil count Automated blood eosinophil count 0.5 0.0 - 0.4 04/10/2018 [facility] Automated blood eosinophil count as percentage of total leukocytes Automated blood eosinophil count as percentage of total leukocytes 6.6 0.0 - 6.0 04/10/2018 [facility] Automated blood hematocrit (volume fraction) Automated blood hematocrit (volume fraction) 43.6 38.2 - 49.6 04/10/2018 [facility] Automated blood lymphocyte count as percentage ot total leukocytes Automated blood lymphocyte count as percentage ot total leukocytes 24.5 18.0 - 39.1 04/10/2018 [facility] Automated blood monocyte count as percentage of total leukocytes Automated blood monocyte count as percentage of total leukocytes 9.7 4.4 - 11.3 04/10/2018 [facility] Automated blood neutrophil count Automated blood neutrophil count 4.6 2.1 - 6.9 04/10/2018 [facility] Automated blood platelet count (count/volume) Automated blood platelet count (count/volume) 259 140 - 360 04/10/2018 [facility] Automated blood segmented neutrophil count as percentage of total leukocytes Automated blood segmented neutrophil count as percentage of total leukocytes 57.6 38.7 - 80.0 04/10/2018 [facility] Automated erythrocyte mean corpuscular hemoglobin (mass per erythrocyte) Automated erythrocyte mean corpuscular hemoglobin (mass per erythrocyte) 30.3 28 - 32 04/10/2018 [facility] Automated erythrocyte mean corpuscular hemoglobin concentration measurement (mass/volume) Automated erythrocyte mean corpuscular hemoglobin concentration measurement (mass/volume) 33.9 31 - 35 04/10/2018 [facility] Automated erythrocyte mean corpuscular volume Automated erythrocyte mean corpuscular volume 89.3 81 - 99 04/10/2018 [facility] Blood erythrocytes automated count (number/volume) Blood erythrocytes automated count (number/volume) 4.88 4.3 - 5.7 04/10/2018 [facility] Blood hemoglobin measurement (moles/volume) Blood hemoglobin measurement (moles/volume) 14.8 14.0 - 18.0 04/10/2018 [facility] Blood leukocytes automated count (number/volume) Blood leukocytes automated count (number/volume) 7.97 4.8 - 10.8 04/10/2018 [facility] Blood lymphocytes count (number/volume) Blood lymphocytes count (number/volume) 2.0 1.0 - 3.2 04/10/2018 [facility] Blood monocytes automated count (number/volume) Blood monocytes automated count (number/volume) 0.8 0.2 - 0.8 04/10/2018 [facility] Estimated glomerular filtration rate (GFR) determination Estimated glomerular filtration rate (GFR) determination >60 60 04/10/2018 [facility] Glucose measurement Glucose measurement 132 74 - 118 04/10/2018 [facility] Serum or plasma anion gap Serum or plasma anion gap 17.0 8 - 16 04/10/2018 [facility] Serum or plasma calcium measurement (mass/volume) Serum or plasma calcium measurement (mass/volume) 9.2 8.4 - 10.2 04/10/2018 [facility] Serum or plasma carbon dioxide, total measurement (moles/volume) Serum or plasma carbon dioxide, total measurement (moles/volume) 22 22 - 29 04/10/2018 [facility] Serum or plasma chloride measurement (moles/volume) Serum or plasma chloride measurement (moles/volume) 107 98 - 107 04/10/2018 [facility] Serum or plasma creatinine measurement (mass/volume) Serum or plasma creatinine measurement (mass/volume) 1.09 0.72 - 1.25 04/10/2018 [facility] Serum or plasma magnesium measurement (mass/volume) Serum or plasma magnesium measurement (mass/volume) 2.0 1.3 - 2.1 04/10/2018 [facility] Serum or plasma potassium measurement (moles/volume) Serum or plasma potassium measurement (moles/volume) 4.0 3.5 - 5.1 04/10/2018 [facility] Serum or plasma sodium measurement (moles/volume) Serum or plasma sodium measurement (moles/volume) 142 136 - 145 04/10/2018 [facility] Serum or plasma urea nitrogen measurement (mass/volume) Serum or plasma urea nitrogen measurement (mass/volume) 10 7 - 26 04/10/2018 [facility] Serum or plasma urea nitrogen/creatinine mass ratio Serum or plasma urea nitrogen/creatinine mass ratio 9 6 - 25 04/10/2018 [facility] Red Cell Distribution Width 13.5 11.7 - 14.4 04/10/2018 [facility] IM GRANULOCYTES % 0.6 0.0 - 1.0 04/10/2018 [facility] Absolute Immature Granulocyte (auto 0.05 0 - 0.1 04/10/2018 [facility] Capillary blood glucose measurement by glucometer (mass/volume) Capillary blood glucose measurement by glucometer (mass/volume) 160 70 - 120 04/09/2018 [facility] Plasma globulin measurement (mass/volume) Plasma globulin measurement (mass/volume) 3.3 2.3 - 3.5 04/09/2018 [facility] Serum or plasma alanine aminotransferase measurement (enzymatic activity/volume) Serum or plasma alanine aminotransferase measurement (enzymatic activity/volume) 61 0 - 55 04/09/2018 [facility] Serum or plasma albumin measurement (mass/volume) Serum or plasma albumin measurement (mass/volume) 3.5 3.5 - 5.0 04/09/2018 [facility] Serum or plasma albumin/globulin mass ratio Serum or plasma albumin/globulin mass ratio 1.1 0.8 - 2.0 04/09/2018 [facility] Serum or plasma alkaline phosphatase measurement (enzymatic activity/volume) Serum or plasma alkaline phosphatase measurement (enzymatic activity/volume) 80 40 - 150 04/09/2018 [facility] Serum or plasma cholesterol in HDL measurement (mass/volume) Serum or plasma cholesterol in HDL measurement (mass/volume) 32 40 - 60 04/09/2018 [facility] Serum or plasma cholesterol in LDL measurement (mass/volume) Serum or plasma cholesterol in LDL measurement (mass/volume) 75 60 - 130 04/09/2018 [facility] Serum or plasma cholesterol measurement (mass/volume) Serum or plasma cholesterol measurement (mass/volume) 141 0 - 199 04/09/2018 [facility] Serum or plasma protein measurement (mass/volume) Serum or plasma protein measurement (mass/volume) 6.8 6.5 - 8.1 04/09/2018 [facility] Serum or plasma total bilirubin measurement (mass/volume) Serum or plasma total bilirubin measurement (mass/volume) 0.6 0.2 - 1.2 04/09/2018 [facility] Serum or plasma total cholesterol/cholesterol in HDL mass ratio Serum or plasma total cholesterol/cholesterol in HDL mass ratio 4.4 3.9 - 4.7 04/09/2018 [facility] Serum or plasma triglyceride measurement (mass/volume) Serum or plasma triglyceride measurement (mass/volume) 172 0 - 149 04/09/2018 [facility] Hemoglobin A1c Percent 6.5 4.0 - 7.0 04/09/2018 [facility] Aspartate Amino Transf (AST/SGOT) 44 5 - 34 04/09/2018 [facility] Activated partial thromboplastin time (aPTT) in platelet poor plasma bycoagulation assay Activated partial thromboplastin time (aPTT) in platelet poor plasma bycoagulation assay 35.9 23.8 - 35.5 04/09/2018 [facility] INR in Platelet poor plasma by Coagulation assay INR in Platelet poor plasma by Coagulation assay 1.06 04/09/2018 [facility] Prothrombin time (PT) in platelet poor plasma by coagulation assay Prothrombin time (PT) in platelet poor plasma by coagulation assay 14.8 11.9 - 14.5 04/09/2018 [facility] Serum or plasma thyrotropin measurement by detection limit <=0.005 miu/l (units/volume) Serum or plasma thyrotropin measurement by detection limit <=0.005 miu/l (units/volume) 3.366 0.350 - 4.940 04/09/2018 [facility] Serum or plasma thyroxine (T4) free measurement (mass/volume) Serum or plasma thyroxine (T4) free measurement (mass/volume) 0.76 0.9 - 1.8 04/09/2018 [facility] Serum or plasma creatine kinase MB measurement (mass/volume) Serum or plasma creatine kinase MB measurement (mass/volume) 1.20 0 - 5.0 04/08/2018 [facility] Serum or plasma creatine kinase measurement (enzymatic activity/volume) Serum or plasma creatine kinase measurement (enzymatic activity/volume) 81 30 - 200 04/08/2018 [facility] Troponin I measurement by highly sensitive enzyme immunoassay Troponin I measurement by highly sensitive enzyme immunoassay <0.001 0 - 0.300 04/08/2018 [facility] Automated urine sediment leukocyte count by microscopy (number/high power field) Automated urine sediment leukocyte count by microscopy (number/high power field) <5 0 - 5 04/08/2018 [facility] Bacteria detection in urine sediment by light microscopy Bacteria detection in urine sediment by light microscopy FEW NONE 04/08/2018 [facility] Epithelial cells detection in urine sediment by light microscopy Epithelial cells detection in urine sediment by light microscopy FEW NONE 04/08/2018 [facility] Erythrocytes detection in urine sediment by light microscopy Erythrocytes detection in urine sediment by light microscopy NONE 0 - 5 04/08/2018 [facility] Mucus detection in urine sediment by light microscopy Mucus detection in urine sediment by light microscopy FEW RARE 04/08/2018 [facility] Specific gravity of Urine by Test strip Specific gravity of Urine by Test strip 1.030 1.010 - 1.025 04/08/2018 [facility] Urine clarity Urine clarity CLEAR CLEAR 04/08/2018 [facility] Urine color determination Urine color determination YELLOW YELLOW 04/08/2018 [facility] Urine erythrocytes detection Urine erythrocytes detection NEGATIVE NEGATIVE 04/08/2018 [facility] Urine glucose detection Urine glucose detection NEGATIVE NEGATIVE 04/08/2018 [facility] Urine ketones detection by automated test strip Urine ketones detection by automated test strip NEGATIVE NEGATIVE 04/08/2018 [facility] Urine leukocyte esterase detection by dipstick Urine leukocyte esterase detection by dipstick NEGATIVE NEGATIVE 04/08/2018 [facility] Urine nitrite detection Urine nitrite detection NEGATIVE NEGATIVE 04/08/2018 [facility] Urine pH measurement by automated test strip Urine pH measurement by automated test strip 6 5 - 7 04/08/2018 [facility] Urine protein measurement by test strip (mass/volume) Urine protein measurement by test strip (mass/volume) NEGATIVE NEGATIVE 04/08/2018 [facility] Urine total bilirubin measurement (mass/volume) Urine total bilirubin measurement (mass/volume) NEGATIVE NEGATIVE 04/08/2018 [facility] Urine urobilinogen measurement by test strip (mass/volume) Urine urobilinogen measurement by test strip (mass/volume) 0.2 0.2 - 1 04/08/2018 [facility] Fibrin D-dimer DDU measurement in platelet poor plasma (mass/volume) Fibrin D-dimer DDU measurement in platelet poor plasma (mass/volume) 5.14 0.00 - 0.45 04/08/2018 [facility] Serum or plasma amylase measurement (enzymatic activity/volume) Serum or plasma amylase measurement (enzymatic activity/volume) 43 25 - 125 04/08/2018 [facility] Serum or plasma lipase measurement (enzymatic activity/volume) Serum or plasma lipase measurement (enzymatic activity/volume) 14 8 - 78 04/08/2018 [facility] B-Type Natriuretic Peptide 16.1 0 - 100 04/08/2018 [facility] Blood cobalamin (vitamin B12) measurement (mass/volume) Blood cobalamin (vitamin B12) measurement (mass/volume) 441 213 - 816 03/13/2018 [facility] Serum or plasma folate measurement (mass/volume) Serum or plasma folate measurement (mass/volume) 5.1 7.0 - 15.4 03/13/2018 [facility] Chemistry SODIUM 139 10/19/2007 [facility] Chemistry [...] [facility] Hematology HCT 47.1 02/08/2006 Medical [facility] Hematology HGB 16.4 02/08/2006 Medical [facility] Hematology PLATELETS 249 02/08/2006 Medical [facility] Pathology Reports No Data Provided for This [...] Provider ADM Date DC Date Status Source [facility] Card[facility] Office Visit [id number] Elmer Vides MD 10/22/2012 10/22/2012 [facility] Cardiology Office Visit [id number] Elmer Vides MD 06/12/2013 06/12/2013 [facility] Cardiology Office Visit [id number] Elmer Vides MD 01/08/2014 01/08/2014 [facility] Discharged Inpatient [id number] KARY VILLELA MD 03/14/2018 03/15/2018 [facility] Discharged Inpatient [id number] CHERELLE CIFUENTES MD 04/08/2018 04/10/2018 [facility] Procedures Procedure Code Date Perfomer Comments Source Computed tomography of chest with contrast [id number] 04/08/2018 [facility] Magnetic resonance imaging of brain without contrast [id number] 03/13/2018 [facility] Computed tomography of brain without radiopaque contrast [id number] 03/12/2018 [facility] Assessment and Plan No Data Provided for This Section Plan of Care Plan of Care Date Source Discharge Date 04/10/18 11:04am Disposition HOME, SELF-CARE Instructions/Education Provided Pulmonary Embolism Prescriptions See Medication Section Referrals GAY URBAN MD (Cardiology) Entered Date: 04/09/2018 9:31am Address: [address] [place] [id number] Additional Instructions/Education F/U WITH PCP IN 1-2 WEEKS 04/10/2018 [facility] Social History Social History Date Source Social [...] Start Date Stop Date Former smoker 04/10/2018 [facility] Family History No Data Provided for This Section Advance Directives Order Name Results Value Date Source Advance Directives Advance Directives Directive Response Recorded Date/Time Does the patient have an advance directive? No 04/08/18 7:51am If yes, is advance directive on file with [facility]? No 04/08/18 7:51am If not on file with [facility] will patient provide a copy? Yes 04/08/18 7:51am Do you have a Directive to Physician? No 04/08/18 5:24am Do you have a Medical Power of Lead Consultant? No 04/08/18 5:24am Do you have an [...] rights and responsibilities? Yes 04/08/18 5:24am 04/10/2018 [facility] Functional Status No Data Provided for This Section
[2019-01-23] MEDS: SODIUM CHLORIDE 0.9% 1000ML 1,000 ML IV SCH (17:48)
[2019-01-23 20:26] LABS: CREATINE KINASE 75 IU/L (30-200)
[2019-01-23] MEDS ORDERED: METOPROLOL SUCC25 MG PO (21:59)
--- NOTE | 2019-01-23 22:00 | NUR ---
Received report from Onesimo, MARILEE nurse. Patient arrived via stretcher. at bedside. Call light within reach.
[2019-01-23] MEDS ORDERED: INFLUENZA VIRUS VAC SPLIT INJ 0.5 ML SYR IM SCH (22:26)
[2019-01-23 22:56] VITALS: BP 121/64
[2019-01-24] VITALS (7 sets, daily range): BP systolic 105–129; BP diastolic 60–80
[2019-01-24 04:01] LABS: CREATINE KINASE 70 IU/L (30-200)
[2019-01-24 05:35] LABS: BASOPHILS # (AUTO) 0.1 (0.0-0.1); EOSINOPHILS # (AUTO) 0.2 (0.0-0.4); EOSINOPHILS % 2.5 % (0.0-6.0); HEMATOCRIT 43.2 % (38.2-49.6); HEMOGLOBIN 14.4 g/dL (14.0-18.0); LYMPHOCYTES # (AUTO) 2.8 (1.0-3.2); LYMPHOCYTES % 32.3 % (18.0-39.1); MEAN CORPUSCULAR HGB CONC 33.3 g/dL (31-35); MONOCYTES # (AUTO) 0.9 (0.2-0.8); MONOCYTES % 10.7 % (4.4-11.3); NEUTROPHILS # (AUTO) 4.6 (2.1-6.9); NEUTROPHILS % 53.3 % (38.7-80.0); PLATELET COUNT 241 x10e3/uL (140-360); RED CELL DISTRIBUTION WIDTH 13.8 % (11.7-14.4)
[2019-01-24 06:01] LABS: ANION GAP 11.9 mmol/L (8-16); CALCIUM 9.4 mg/dL (8.4-10.2); CHOL/HDL RATIO 4.4 (3.9-4.7); CREATININE, SERUM 1.34 mg/dL (0.72-1.25); POTASSIUM 4.9 mmol/L (3.5-5.1)
--- NOTE | 2019-01-24 06:57 | NUR ---
Gave report to oncoming nurse. patient in bed. at bedside. Call light within reach. patient pulled out his IV.
[2019-01-24] MEDS: ASPIRIN 81 MG ENTERIC COATED PO SCH (08:50)
--- NOTE | 2019-01-24 10:11 | NUR ---
PATIENT OFF THE UNIT FOR MRI, STABLE. AT BED SIDE
[2019-01-24] MEDS: SODIUM CHLORIDE 0.9% 1000ML 1,000 ML IV SCH (11:03)
--- NOTE | 2019-01-24 12:27 | Diagnostic Imaging Report ---
EXAMINATION: MRI of the brain without contrast. HISTORY: TIA, alteration of consciousness. COMPARISON: Head CT 01/23/2019 and brain MRI 03/13/2018 TECHNIQUE: Sagittal T2; axial DWI, T2, FLAIR, T1-IR, T2 gradient echo; coronal FLAIR. IMAGE QUALITY: Adequate. FINDINGS: Parenchyma: 1. Scattered and moderate confluent periventricular white matter T2 and FLAIR hyperintense foci, most likely nonspecific chronic microvascular ischemic changes. 2. No mass, hemorrhage, acute or chronic infarcts. Skull: Unremarkable. Vessels: Expected flow voids present in the major arteries and dural sinuses. Extra-axial spaces: No abnormal signal intensity or mass effect. Brain volume: Generalized brain volume loss with mild bilateral medial temporal/hippocampal predominance, which can be seen in patients with Alzheimer's disease, only the provided clinical setting. Ventricles: Mild ventriculomegaly, that is slightly out of proportion to the size of the cortical sulci, thinning and upward displacement of the corpus callosum, with relative partial effacement of the vertex region sulci. Some degree of normal pressure hydrocephalus cannot be excluded in the appropriate clinical setting. Foramen magnum: Unremarkable. Sella: Unremarkable. Paranasal / mastoid sinuses: No significant inflammatory disease. IMPRESSION: 1. No acute infarcts. 2. Moderate chronic microvascular ischemic changes. 3. Persistent ventriculomegaly, communicating normal pressure hydrocephalus is suspected. 4. Slightly disproportionate medial temporal volume loss. Signed by: Dr. Marcia Guthrie M.D. on 01/24/2019 12:24 PM
[2019-01-24] MEDS: MEMANTINE 10 MG TAB PO SCH (16:20)
[2019-01-24] MEDS: FAMOTIDINE 20 MG TAB PO SCH (16:20)
[2019-01-24] MEDS: RIVAROXABAN 15 MG TABLET PO SCH (16:50)
[2019-01-24] MEDS ORDERED: DEXTROSE 50% SYRINGE 50 ML IV PRN (17:15)
[2019-01-24] MEDS: INSULIN REGULAR, HUMAN 100 UNIT/1 ML 3ML VIAL SQ SCH (20:59)
[2019-01-24] MEDS ORDERED: PRAVASTATIN 20 MG TAB PO SCH ×2 (21:00)
[2019-01-24] MEDS ORDERED: DONEPEZIL HCL 5 MG TAB PO SCH (21:00)
[2019-01-24] MEDS ORDERED: METOPROLOL SUCCINATE 25 MG TAB XL PO SCH (21:00)
--- NOTE | 2019-01-24 22:49 | Consultation ---
DATE OF CONSULTATION: 01/24/2019 Neurology Consult Note HISTORY OF PRESENT ILLNESS: Mr. Calderon is a 73-year-old left-hand dominant man with past medical history significant for hypertension, hyperlipidemia, diabetes mellitus, coronary artery disease, and dementia, admitted to [facility] on January 23, 2019, with symptoms suspicious for transient ischemic attack. Early on the morning of admission, the patient was observed by his to experience the sudden onset of dysarthria, right facial droop, possible right hemiparesis, poor balance with impairment of gait, and confusion. The patient's does not report a visual field cut or other disturbance, aphasia, or dizziness. As far as the patient's poor balance and impairment of gait, these symptoms are chronic, but may have worsened on the morning of admission. Following the onset of the above symptoms, Mr. Calderon telephoned her younger son, who is a registered nurse. He advised his mother to take the patient to the emergency center at [facility] for further evaluation of his symptoms. At the time of arrival at the emergency center, the symptoms described above had resolved. The patient's does not report recent signs/symptoms of illness. Specifically, she does not report fever, chills, productive cough, nausea, vomiting, urinary urgency, urinary frequency, burning with urination or foul odor to the urine in the days prior to Mr. Calderon's admission. She does report diarrhea approximately one week prior to admission. Upon arrival in the emergency center, the patient was afebrile with a blood pressure of 136/65 mmHg and a pulse of 65 beats per minute. Documentation of the patient's neurological examination is unavailable for review at present. A CT of the brain without contrast was performed, while the patient was in the emergency center. This study did not reveal evidence of recent large territorial ischemia or hemorrhage. Mr. Calderon was then admitted to [facility] under observation status for further evaluation and treatment of his symptoms. Mr. Calderon has reportedly not experienced similar symptoms previously. Mr. Calderon takes Xarelto 50 mg by mouth twice daily for coronary artery disease. His endorses his compliance with this medication. REVIEW OF SYSTEMS: Diarrhea, memory impairment, confusion, dysarthria, right facial weakness, possible right hemiparesis, impairment of balance and gait, and skin pallor. Otherwise, a 12-point review of systems is negative. PAST MEDICAL HISTORY: Hypertension, hyperlipidemia, diabetes mellitus type 2, coronary artery disease, chronic kidney disease stage IIIA, history of nephrolithiasis, depression, history of prostate cancer (in remission), dementia, and obstructive sleep apnea. PAST SURGICAL HISTORY: Cardiac stents x2, prostate surgery, right shoulder surgery, surgery on the nose for obstructive sleep apnea, surgery for kidney stones, and bilateral cataract removal. PAST HOSPITALIZATIONS: Surgeries/procedures, numerous hospitalizations for various diagnoses. FAMILY MEDICAL HISTORY: The patient's paternal and maternal grandparents are . Their medical histories are unknown. The patient's father is from coronary artery disease with a myocardial infarction. The patient's mother is from chronic obstructive pulmonary disease. The patient had one sibling, a sister, who is from metastatic cancer. Mr. Calderon has two sons, both of whom are alive and healthy. SOCIAL HISTORY: Mr. Calderon is . He is retired. The patient reports a remote history of tobacco use, but quit smoking cigarettes 50+ years ago. There is no reported alcohol or recreational drug use. HOME MEDICATIONS: Amlodipine 10 mg by mouth daily, bupropion 300 mg by mouth daily, Aricept 10 mg by mouth at bedtime daily, Lexapro 20 mg by mouth daily, isosorbide mononitrate 30 mg by mouth daily, lorazepam 0.5 mg by mouth twice daily as needed, memantine 10 mg by mouth twice daily, metformin 1000 mg by mouth twice daily, metoprolol 25 mg by mouth at bedtime daily, Benicar 40 mg by mouth daily, pravastatin 20 mg by mouth at bedtime daily, and Xarelto 15 mg by mouth twice daily. HOSPITAL MEDICATIONS: Norvasc, aspirin, Wellbutrin, donepezil, Lexapro, Pepcid, isosorbide mononitrate, memantine, metoprolol, Benicar, Zofran, and Xarelto. ALLERGIES: NO KNOWN DRUG ALLERGIES. NO KNOWN FOOD ALLERGIES. NO KNOWN ALLERGIES TO LATEX. NO KNOWN ALLERGIES TO IODINE OR OTHER CONTRAST MATERIALS. PHYSICAL EXAMINATION: VITAL SIGNS: Height 69 inches, weight 250 pounds, BMI 36.9 kg/m2, blood pressure 129/80 mmHg, pulse 56 beats per minute, respiratory rate 18 breaths per minute, and oxygen saturation 95% on room air. GENERAL: The patient is awake and alert, does not appear distressed. Obese. HEENT: Normocephalic, atraumatic. Pupils are surgical. Moist mucous membranes. NECK: Supple. No appreciable thyromegaly. No appreciable carotid bruits. CARDIOVASCULAR: S1, S2, regular rate and rhythm. No murmurs, rubs, or gallops. RESPIRATORY: Clear to auscultation bilaterally. No wheezes, rhonchi, or rales. EXTREMITIES: The skin is warm and dry. No clubbing, cyanosis, or edema. The posterior tibial and dorsalis pedis pulses are 1+ and symmetric. SKIN: No rashes or lesions. NEUROLOGIC: Memory/Attention: The patient is awake and alert, oriented to person, place (hospital, city, state), but not time or situation. Cranial Nerves: Cranial nerve I - not tested. Cranial nerves II, III, IV, and - pupils are surgical. Extraocular movements intact. No nystagmus. Cranial nerve V - sensation to light touch and pinprick is intact in the bilateral V1 through V3 distributions. Strength of the temporalis and masseter muscles are within normal limits. Cranial nerve VII - the face is symmetric as are all facial movements. Strength is within normal limits. Cranial nerve VIII - hearing is diminished to finger rub bilaterally. Cranial nerves IX, X - the soft palate elevates equally and symmetrically. Cranial nerve XI - normal strength of the bilateral sternocleidomastoid and trapezius muscles. Cranial nerve XII - the tongue protrudes midline and moves symmetrically from [id number]. Strength: Bulk is normal. Strength is 5/5 in the bilateral deltoids, biceps, triceps, wrist flexors and extensors, finger flexors and extensors, intrinsic hand muscles, hip flexors, knee flexors and extensors, ankle dorsiflexion and plantar flexion, and intrinsic foot muscles. Tone is normal. DTRs: Deep tendon reflexes are 1+ and symmetric at the triceps, biceps, brachioradialis, and patellas. Deep tendon reflexes are absent and symmetric at the Achilles. Plantar responses are flexor bilaterally. Sensation: Sensation is intact to light touch and pinprick in both arms and both legs. Cerebellar: [id number] and heel-benito movements are intact without dysmetria or other impairment. Gait: Deferred. Speech: Spontaneous speech is normal without appreciable dysarthria or aphasia. Repetition is intact. Involuntary Movements: None. Pronator Drift: None. LABORATORY DATA: Serum chemistry is unavailable for review at this time. The CBC with differential and platelets is unremarkable. PT 17.1, INR 1.33, PTT 38.8. A urinalysis is unremarkable. A urine culture collected on January 23, 2019, reveals no growth at 18 to 24 hours. DIAGNOSTIC STUDIES: Electrocardiogram on 01/23/2019: Normal sinus rhythm at 64 beats per minute. Right bundle-branch block. Echocardiogram on 01/24/2019: Ejection fraction 55% to 60%. Concentric left ventricular hypertrophy. Trace tricuspid regurgitation. Bilateral carotid artery ultrasound with Doppler on 01/24/2019: Atherosclerosis without hemodynamically significant stenosis at the bilateral carotid bulbs and carotid bifurcations. Flow is antegrade in the bilateral vertebral arteries. MRI of the brain without contrast on 01/24/2019: On my review, there is no evidence of recent large territorial ischemia, hemorrhage, mass, or mass effect. There is diffuse cerebral atrophy with compensatory dilatation of the ventricles, appropriate for the patient's age. There are scattered confluent T2/FLAIR hyperintense foci in the supratentorial and infratentorial white matter compatible with moderate chronic small vessel ischemic disease. ASSESSMENT AND PLAN: Mr. Calderon is a 73-year-old right-hand dominant man with multiple vascular risk factors, admitted to [facility] on January 23, 2019, with a probable transient ischemic attack. The patient's neurological examination is nonfocal at present. His laboratory data and other diagnostic studies have been reviewed and are documented above. RECOMMENDATIONS: Are as follows: 1. A hemoglobin A1c will be ordered to complete stroke evaluation. 2. Given the occurrence of a transient ischemic attack, while on Xarelto, it would be prudent to transition the patient to another anticoagulant medication. 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 Therefore, treatment was Xarelto 15 mg by mouth twice daily will be continued in the interim. 3. The patient's goal blood pressure is less than 140/90 mmHg. At present, the patient's blood pressures are at goal. His home antihypertensive medications will be held. Vital signs will be monitored per unit protocol. 4. The patient's goal total cholesterol is less than 200 with an LDL of less than 70. The patient's total cholesterol is at goal, but his LDL is approximately 30 points above goal. Treatment of pravastatin will be continued, but the dose will be increased to 40 mg by mouth at bedtime daily. 5. The patient's goal hemoglobin A1c is less than 7.0. Follow up the results of the hemoglobin A1c. Treatment with sliding scale insulin per protocol is recommended. Tight glycemic control is recommended, while the patient is hospitalized. Speech and Physical Therapy consultations will be ordered. 6. GI prophylaxis with Pepcid 20 mg by mouth twice daily with meals. DVT prophylaxis with Xarelto as previously detailed. 7. For dementia, treatment with the patient's home medications of donepezil 10 mg by mouth at bedtime daily and memantine 10 mg by mouth twice daily will be continued. 8. For depression, treatment with Lexapro and bupropion will be continued. Ativan will be held. 9. On his neuro imaging studies, the radiologists listed normal-pressure hydrocephalus as a possible diagnosis. However, the history of the patient's symptoms is not compatible with his diagnosis. No further evaluation for normal-pressure hydrocephalus is recommended. Thank you for this consultation. I will continue to follow the patient, while he remains in the hospital. TIME SPENT: 70 minutes. Batsheva Ace MD CP/JOSE /[id number] MTDD
[2019-01-25] VITALS: BP 115/68
[2019-01-25 04:00] VITALS: BP 141/76
--- NOTE | 2019-01-25 07:00 | NUR ---
RCD PT AT BED PT IS ALERT AND ORIENTED PT RESTING ON BED NO SIGNS OF ANY DISTRESS NOTED IV PATENT FAMILY AT BED SIDE BED LOW AND LOCKED CALL LIGHT IN REACH
--- NOTE | 2019-01-25 07:05 | NUR ---
GAVE REPORT TO ONCOMING NURSE. PATIENT IN BED. AT BEDSIDE. CALL LIGHT WITHIN REACH.
[2019-01-25] MEDS: FAMOTIDINE 20 MG TAB PO SCH (07:30)
[2019-01-25] MEDS: INSULIN REGULAR, HUMAN 100 UNIT/1 ML 3ML VIAL SQ SCH ×2 (07:30→11:30)
[2019-01-25 08:19] VITALS: BP 120/72
[2019-01-25] MEDS: SODIUM CHLORIDE 0.9% 1000ML 1,000 ML IV SCH (08:36)
[2019-01-25 09:00] VITALS: BP 120/72
[2019-01-25] MEDS ORDERED: AMLODIPINE BESYLATE 10 MG TAB PO SCH (09:00)
[2019-01-25] MEDS ORDERED: NON-FORMULARY MEDICATION (Bupropion Hcl (Bupropion Xl) 300 MG) PO SCH (09:00)
[2019-01-25] MEDS ORDERED: ESCITALOPRAM OXALATE 10 MG TAB PO SCH (09:00)
[2019-01-25] MEDS ORDERED: BUPROPION HCL 150 MG TABCR PO SCH (09:00)
[2019-01-25] MEDS ORDERED: OLMESARTAN 20 MG TAB PO SCH (09:00)
[2019-01-25] MEDS: ASPIRIN 81 MG ENTERIC COATED PO SCH (09:00)
[2019-01-25] MEDS: MEMANTINE 10 MG TAB PO SCH (09:00)
[2019-01-25] MEDS: RIVAROXABAN 15 MG TABLET PO SCH (09:00)
[2019-01-25] MEDS ORDERED: ISOSORBIDE MONONITRATE 20 MG TAB PO SCH (09:00)
[2019-01-25] MEDS ORDERED: ONDANSETRON HCL 4 MG ORAL DISINTEGRATING TAB PO PRN (11:30)
[2019-01-25 11:31] VITALS: BP 125/67
[2019-01-25] MEDS ORDERED: ATORVASTATIN CA20 MG PO (14:26)
--- NOTE | 2019-01-25 14:30 | NUR ---
A/C TO DR DAY PT CAN GO HOME PAGED DR MARES AND NOTIFIED THAT GOT THE DISCHARGE APPROVAL
--- NOTE | 2019-01-25 15:15 | NUR ---
PT WENT HOME IN SAFE CONDITION WITH HIS
--- NOTE | 2019-01-25 15:45 | Consultation ---
DATE OF CONSULTATION: 01/25/2019 Cardiac Consultation REASON FOR CONSULTATION: TIA. HISTORY: This is a 73-year-old gentleman, who is known with hypertension, hyperlipidemia, diabetes mellitus, coronary artery disease, and dementia. The patient came to this institution with presumed TIA. The patient is really quite forgetful. His noted on 01/23/2019 having right hemiparesis, right facial droop and dysarthria and abnormal gait and worsening of confusion. The patient came to the institution. The patient looks better today, he is more coherent and he is having more strength and he is able to eat his meal when I was visiting with him. He is really truly demented and it is progressively worse. 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 In July 2018, the patient had cardiac catheterization done by Dr. Cooper, which showed the presence of three-vessel disease with totally occluded calcified right coronary artery, severely calcified ostial circumflex and diseased mid LAD. The patient's family was unhappy with the cardiac care and they went to the [facility]. In the [facility], he was seen by another labelling machine operator and a trial of PCI was unsuccessful. The patient is not so eager about doing bypass surgery. His doctor over there said he will give him another trial later on using different kit technique. The patient we cannot depend on his history, basically his main problem is his dementia. He is active, he is ambulatory, he is doing well. The patient's main problem is memory problem. REVIEW OF SYSTEMS: Twelve point of review of systems will be summarized for clarity. GENERAL: No fever, no chills. HEENT: No hearing problem. No vision problem. PULMONARY: Moderate shortness of breath on exertion. CARDIAC: Sleep apnea like symptoms with snoring at night. Some orthopnea. No paroxysmal nocturnal dyspnea. Exertional shortness of breath. No angina reported recently. GI: No hematemesis. No melena. : Increased frequency of urination. MUSCULOSKELETAL: Nonspecific aches. PSYCHIATRIC/MENTATION. The patient is totally demented, he cannot remember anything. SKIN: There is no skin lesion. ENDOCRINE: Diabetic, on medication. PAST MEDICAL HISTORY: 1. Hypertension. 2. Hyperlipidemia. 3. Diabetes mellitus with end-organ damage. 4. Coronary artery disease. Cardiac catheterization reviewed, showing triple-vessel disease. 5. Chronic kidney disease. 6. History of kidney stone. 7. Dementia. 8. Prostate cancer, in remission. 9. Obstructive sleep apnea. 10. Prostate surgery. 11. Right and left shoulder surgery. 12. Some form of nose surgery for obstructive sleep apnea. 13. Kidney stone. 14. Bilateral cataract surgery. SOCIAL HISTORY: He is . He is retired. He used to work in [employer]. He is non-alcohol drinker. His nonsmoker. MEDICATIONS: Amlodipine 10 mg a day, bupropion 300 mg a day, Aricept 10 mg a day, Lexapro 20 mg a day, Ismo 30 mg a day, lorazepam p.r.n., memantine 10 mg daily, metformin 1000 mg twice a day, metoprolol succinate ER 25 mg a day, Benicar 40 mg a day, pravastatin 20 mg a day, and Xarelto 20 mg a day. ALLERGIES: NONE. FAMILY HISTORY: Strongly positive for coronary artery disease and diabetes mellitus. PHYSICAL EXAMINATION: VITAL SIGNS: Height of 5 feet 9 inches, weight of 244 pounds. Blood pressure 120/60, heart rate of 60, respiratory rate of 18. HEENT: Pupils are equal and reactive. NECK: No elevation of jugular venous pulsation. No bruit. CHEST: Clear to auscultation and percussion. HEART: PMI 5th left intercostal space. Normal first and second heart sounds. ABDOMEN: Soft, obese. No organomegaly. No abdominal bruits. EXTREMITIES: No cyanosis, no clubbing, no edema. Decreased distal pulses. NEUROLOGIC: The patient is totally demented, he is disoriented. No gross motor deficits noted. LABORATORY DATA: Sodium of 138, potassium 4.9, BUN of 18, creatinine of 1.34. Hemoglobin of 14.4, hematocrit 43%, white blood cell count of 8.7. INR of 1.3, pro-time of 17.1 seconds. Triglycerides of 150, cholesterol of 173, HDL of 39, LDL of 104. CT head, no acute changes. EKG showing right bundle-branch block with sinus rhythm. Carotid Doppler showed bilateral atherosclerosis. MRI brain showed diffuse cerebral atrophy and dilatation of the ventricle, possible normal-pressure hydrocephalus. Reviewing cardiac catheterization from July 2018, it was very difficult study with limited views, but you can see clearly the RCA is heavily calcified, totally occluded. The circumflex ostium is diseased and is heavily calcified. The LAD also got disease in its mid part. IMPRESSION AND PLAN: 1. Admission with transient ischemic attack. 2. Hypertension. 3. Dementia. 4. Coronary artery disease. 5. Diabetes mellitus with end-organ damage. 6. Hyperlipidemia. 7. Prostate cancer, in remission. 8. Degenerative joint disease, bilateral shoulder disease. 9. All other health problems mentioned above. 10. History of bilateral pulmonary emboli and right ventricular strain. This visit was very lengthy. I reviewed all his record. I have reviewed his cardiac catheterization. I reviewed all his data. We had lengthy discussion with the . From a cardiac point of view, recommendation is medical therapy. He is on appropriate medication. We will liberalize his blood pressure rather than having it on lower side. We will allow systolic up to 140-150 by adjusting the dose of Norvasc. We will continue all his other medication. Regarding his cardiac issue, I understand the patient's dilemma here. The patient will be seen by his physician in the [facility] who tried to do PCI, they are going to try to repeat PCI using different technique. This will be done I understand in April or May. I told her after they exhaust all the means in the Medical Center, I will be happy to see him providing they want to come to see me that "the patient's request." I told her to be sure his son also will talk to the other labelling machine operator and be sure everything is done to their satisfaction. This was a really truly very lengthy visit with very complex care and very complex decision. We will follow the patient after he will be seen at least once with the [facility] with the labelling machine operator and finalize the plan. Questions are answered and discussed. MD RANDY Cortez/JOSE /[id number]
[2019-01-25] MEDS ORDERED: ATORVASTATIN 20 MG TAB PO SCH (21:00)
--- NOTE | 2019-01-26 07:48 | Discharge Summary ---
HOSPITAL COURSE: Mr. Calderon is a 73-year-old man with history of coronary artery disease status post stent, hypertension, hyperlipidemia, diabetes, prostate cancer, dementia, came to the emergency room because he was agitated and had some slurred speech that after the patient came here resolved. A head CT and MRI negative for acute stroke. A carotid Doppler, no significant stenosis. PHYSICAL EXAMINATION: GENERAL: Today, he is awake. He is alert. VITAL SIGNS: Temperature is 97.8, blood pressure 120/72. HEART: Regular rate. LUNGS: Clear to auscultation. ABDOMEN: Soft. LABORATORY DATA: On the blood work potassium 4.9, creatinine 1.34, glucose . White count 8.70, hemoglobin 14.4, hematocrit 43.2. Urine culture preliminary, no growth. MRI shows no acute infarcts, a normal pressure hydrocephalus. Carotid Doppler, no significant stenoses. Echocardiogram shows an ejection fraction of 55% to 60%. ASSESSMENT: 1. Probably TIA. 2. Coronary artery disease, status post stent. 3. Hypertension. 4. Dementia. 5. Hyperlipidemia. 6. Diabetes type 2. PLAN: At present time if it is okay with Neurology to discharge the patient home and have him followup as an outpatient. Continue home medications. He is on medication for depression. He is on Xarelto. We are going to add statin if he is not taking it at home. All this was discussed with the patient and . All questions were answered to satisfaction. MD LATA Sullivan/JOSE /[id number]
== END 2019-01-25 15:15 | disposition home or self-care (01) ==
LOC: ER 10:50 → ERHOLD 16:45 → IMCU 21:50
PROVIDERS: ADMIT Internal Medicine; ATTEND Internal Medicine
DX: G45.9 Transient cerebral ischemic attack, unspecified (principal); I25.10 Atherosclerotic heart disease of native coronary artery without angina pectoris; E78.5 Hyperlipidemia, unspecified; F03.90 Unspecified dementia, unspecified severity, without behavioral disturbance, psychotic disturbance, mood disturbance, and anxiety; E11.22 Type 2 diabetes mellitus with diabetic chronic kidney disease; I12.9 Hypertensive chronic kidney disease with stage 1 through stage 4 chronic kidney disease, or unspecified chronic kidney disease; N18.3 Chronic kidney disease, stage 3 (moderate); G47.33 Obstructive sleep apnea (adult) (pediatric); Z85.46 Personal history of malignant neoplasm of prostate; Z95.5 Presence of coronary angioplasty implant and graft; Z86.711 Personal history of pulmonary embolism; Z79.01 Long term (current) use of anticoagulants; M19.012 Primary osteoarthritis, left shoulder; M19.011 Primary osteoarthritis, right shoulder; Z79.84 Long term (current) use of oral hypoglycemic drugs
CPT/HCPCS: 36415 ×3; 70450; 70551; 80048 ×2; 80061; 81001; 82550 ×2; 82553 ×2; 82948 ×3; 83036; 84484 ×2; 85025 ×2; 85610; 85730; 87086; 92523; 93005; 93306; 93880; 97116; 97161; 97530; 99285; G0378 ×3; J1817; J7030 ×3

== ENCOUNTER 2019-04-29 19:05 | Inpatient (IN) | payer OTHER, MEDICARE ==
[~2019-04-29] VITALS: Ht 175.3 cm; Wt 109.6 kg
[~2019-04-29 19:05] MED LIST changes: +ATORVASTATIN CA20 MG PO; +METOPROLOL SUCC25 MG PO
[2019-04-29] MEDS ORDERED: XARELTO20 MG PO (19:29)
[2019-04-29] MEDS ORDERED: ASPIR 8181 MG PO (19:29)
[2019-04-29] MEDS ORDERED: ASPIRIN 81 MG CHEW TAB PO ONE ×2 (19:30→21:15)
[2019-04-29 19:42] LABS: BASOPHILS % 0.2 % (0.0-1.0); EOSINOPHILS # (AUTO) 0.2 (0.0-0.4); EOSINOPHILS % 0.9 % (0.0-6.0); HEMATOCRIT 49.7 % (38.2-49.6); HEMOGLOBIN 16.7 g/dL (14.0-18.0); LYMPHOCYTES # (AUTO) 0.8 (1.0-3.2); LYMPHOCYTES % 4.2 % (18.0-39.1); MEAN CORPUSCULAR HEMOGLOBIN 30.1 pg (28-32); MEAN CORPUSCULAR HGB CONC 33.6 g/dL (31-35); MEAN CORPUSCULAR VOLUME 89.7 fL (81-99); MONOCYTES # (AUTO) 0.8 (0.2-0.8); MONOCYTES % 4.2 % (4.4-11.3); PLATELET COUNT 292 x10e3/uL (140-360); RED BLOOD COUNT 5.54 x10e6/uL (4.3-5.7); RED CELL DISTRIBUTION WIDTH 13.7 % (11.7-14.4)
[2019-04-29 19:51] LABS: CHLORIDE 104 mmol/L (98-107); POTASSIUM 4.4 mmol/L (3.5-5.1); SODIUM 142 mmol/L (136-145)
[2019-04-29 19:52] LABS: INR 1.07; PROTHROMBIN TIME 14.4 seconds (11.9-14.5)
[2019-04-29 19:53] LABS: PARTIAL THROMBOPLASTIN TIME 34.3 seconds (23.8-35.5)
[2019-04-29 20:07] LABS: ALANINE AMINOTRANSFERASE 53 IU/L (0-55); ALBUMIN/GLOBULIN RATIO 1.1 (0.8-2.0); ALKALINE PHOSPHATASE 84 IU/L (40-150); ANION GAP 19.3 mmol/L (8-16); BLOOD UREA NITROGEN 25 mg/dL (7-26); BUN/CREATININE RATIO 13 (6-25); CALCIUM 9.7 mg/dL (8.4-10.2); CARBON DIOXIDE 22 mmol/L (22-29); CREATINE KINASE 100 IU/L (30-200); CREATININE, SERUM 1.92 mg/dL (0.72-1.25); EST GLOMERULAR FILTRATION RATE 35 ML/MIN (60-); GLUCOSE 176 mg/dL (74-118); MAGNESIUM 1.9 MG/DL (1.3-2.1)
[2019-04-29 20:18] LABS: BILIRUBIN,URINE 1+ (NEGATIVE); CLARITY,URINE SL CLOUDY (CLEAR); COLOR,URINE YELLOW (YELLOW); KETONES,URINE TRACE (NEGATIVE); LEUKOCYTE ESTERASE ,URINE NEGATIVE (NEGATIVE); NITRITE,URINE NEGATIVE (NEGATIVE); PROTEIN,URINE DIPSTICK 2+ (NEGATIVE); URINE UROBILINOGEN 0.2 mg/dL (0.2 - 1)
--- NOTE | 2019-04-29 20:24 | NUR ---
PTS O2 SATS 93%, PT DENIES SOB, PT PLACED ON 2L NC SATS INREASED TO 96%
[2019-04-29 20:30] LABS: AMORPHOUS SEDIMENT,URINE MANY (FEW); BACTERIA,URINE MODERATE /HPF; MUCUS,URINE MANY (RARE); RBC,URINE 0-5 /HPF (0-5); RENAL EPITHELIAL CELLS,URINE FEW
--- NOTE | 2019-04-29 20:44 | Diagnostic Imaging Report ---
Examination: Single AP view of the chest. COMPARISON: Portable chest 04/09/2018 INDICATION: Chest pain IMPRESSION: 1. Lines and Tubes: None 2. Lungs are grossly clear. No consolidation or effusion. 3. Cardiomediastinal silhouette is normal. Pulmonary vasculature is normal. 4. No acute bony abnormalities. Signed by: Dr. Dexter Plascencia M.D. on 04/29/2019 8:41 PM
[2019-04-29] MEDS: CEFTRIAXONE SOD 1 GM/NS 50 ML 50 ML IV SCH (20:49)
[2019-04-29] MEDS ORDERED: ONDANSETRON HCL INJ 2MG/ML 2ML 2 MG/ML VIAL IV ONE (21:27)
[2019-04-29] MEDS ORDERED: ACETAMINOPHEN 325 MG TAB PO ONE (21:30)
[2019-04-29] MEDS ORDERED: ONDANSETRON HCL INJ 2MG/ML 2ML 2 MG/ML VIAL ONE (21:32)
[2019-04-29] MEDS ORDERED: ACETAMINOPHEN 325 MG TAB ONE (21:33)
--- NOTE | 2019-04-29 21:40 | NUR ---
Informed by rn staffing about change in pt's clinical status. Pt is admitted to the [facility] under Dr. Chavez's service but currently in the ED. Pt evalauted by me at bedside- pt complaining of nausea but denies any abdominal pain, chest pain or shortness of breath. Pt is in severe sepsis. Pt give IVFs, antipyretics, antiemetics, broaded antibiotic coverage Pt UA showed WBCs but no LE or nitrates- CT AP ordered for ?pyelonephritis Dr. Chavez informed of the above findings- agrees with plan, will continue to manage patient inpatient.
[2019-04-29] MEDS ORDERED: SODIUM CHLORIDE 0.9% 1000ML 1,000 ML IV SCH (22:15)
[2019-04-29] MEDS ORDERED: VANCOMYCIN 1GM/NS 250 ML 250 ML IV ONE (22:15)
--- NOTE | 2019-04-29 22:34 | NUR ---
CONSULT TO DR JENNA WALSH.
--- NOTE | 2019-04-29 22:38 | NUR ---
SPOKE TO DR NEAL AND NOTIFIED ABOUT THE PT'S CONSULT.
--- NOTE | 2019-04-29 22:57 | NUR ---
PAGED DR DAY REGARDING PT'S ORDER FOR CT ABDOMEN/PELVIS WITH CONTRAST.PT'S GFR 35,CREATININE 1.92,AWAITING CALL BACK AT THIS TIME.
[2019-04-29 23:33] VITALS: BP 135/80
[2019-04-30] VITALS (7 sets, daily range): BP systolic 107–139; BP diastolic 72–80
[2019-04-30 03:55] LABS: CREATINE KINASE 77 IU/L (30-200)
[2019-04-30 05:23] LABS: BASOPHILS % 0.3 % (0.0-1.0); EOSINOPHILS # (AUTO) 0.1 (0.0-0.4); EOSINOPHILS % 0.8 % (0.0-6.0); HEMATOCRIT 43.4 % (38.2-49.6); HEMOGLOBIN 14.6 g/dL (14.0-18.0); LYMPHOCYTES # (AUTO) 0.4 (1.0-3.2); MEAN CORPUSCULAR HEMOGLOBIN 30.1 pg (28-32); MEAN CORPUSCULAR HGB CONC 33.6 g/dL (31-35); MEAN CORPUSCULAR VOLUME 89.5 fL (81-99); MONOCYTES # (AUTO) 0.6 (0.2-0.8); NEUTROPHILS # (AUTO) 13.1 (2.1-6.9); NEUTROPHILS % 91.5 % (38.7-80.0); PLATELET COUNT 245 x10e3/uL (140-360); RED BLOOD COUNT 4.85 x10e6/uL (4.3-5.7); RED CELL DISTRIBUTION WIDTH 13.9 % (11.7-14.4)
--- NOTE | 2019-04-30 05:42 | NUR ---
PAGED AND SPOKE WITH DR DAY NOTIFIED PT'S TEMP,AND THAT PT VOMITED X 1.N/O'S RECEIVED AND ENTERED.
[2019-04-30 05:43] LABS: ALBUMIN 3.3 g/dL (3.5-5.0); ANION GAP 14.9 mmol/L (8-16); CALCIUM 8.7 mg/dL (8.4-10.2); CREATININE, SERUM 1.3 mg/dL (0.72-1.25); POTASSIUM 3.9 mmol/L (3.5-5.1)
[2019-04-30] MEDS ORDERED: ACETAMINOPHEN 650 MG SUPP PR PRN (05:45)
[2019-04-30] MEDS ORDERED: ONDANSETRON HCL INJ 2MG/ML 2ML 2 MG/ML VIAL IV PRN (05:45)
[2019-04-30 05:56] LABS: CREATINE KINASE 79 IU/L (30-200)
--- NOTE | 2019-04-30 07:00 | NUR ---
RECEIVED AM REPORT AND MORNING ROUNDS DONE. PT IS ALERT RESTING IN BED, NO S/S OF DISTRESS. CALL LIGHT WITHIN REACH AND INSTRUCTED PT TO CALL NURSE FOR HELP. IS AT THE BEDSIDE.
--- NOTE | 2019-04-30 07:05 | NUR ---
REPORT GIVEN TO ONCOMING NURSE.WALKING ROUNDS MADE.PT RESTING IN BED WITH NO S/S OF DISTRESS.
[2019-04-30] MEDS: CEFTRIAXONE SOD 1 GM/NS 50 ML 50 ML IV SCH ×2 (09:00→20:57)
[2019-04-30] MEDS: ISOSORBIDE MONONITRATE 20 MG TAB PO SCH (10:57)
[2019-04-30] MEDS: AMLODIPINE BESYLATE 10 MG TAB PO SCH (10:57)
[2019-04-30] MEDS: ASPIRIN 81 MG CHEW TAB PO SCH (10:57)
--- NOTE | 2019-04-30 11:02 | Diagnostic Imaging Report ---
EXAM: CT Abdomen and Pelvis WITHOUT intravenous contrast INDICATION: Abdominal pain COMPARISON: CT abdomen and pelvis of 09/04/2013 TECHNIQUE: Abdomen and pelvis were scanned utilizing a multidetector helical scanner from the lung base to the pubic symphysis without administration of IV contrast. Coronal and sagittal reformations were obtained. IV CONTRAST: None ORAL CONTRAST: Water COMPLICATIONS: None RADIATION DOSE: Total DLP: 837.2 mGy*cm Dose modulation, iterative reconstruction, and/or weight based adjustment of the mA/kV was utilized to reduce the radiation dose to as low as reasonably achievable. FINDINGS: LOWER THORAX: No focal consolidation. Mild bibasilar dependent subsegmental atelectasis. Heavy atherosclerotic coronary artery calcifications. HEPATOBILIARY: No focal hepatic lesions. The gallbladder appears unremarkable. SPLEEN: No splenomegaly. PANCREAS: No focal masses or ductal dilatation. ADRENALS: No adrenal nodules. KIDNEYS/URETERS: No hydronephrosis, stones, or solid mass lesions. Bilateral exophytic renal cysts. PELVIC ORGANS/BLADDER: Status post prostatectomy. PERITONEUM / RETROPERITONEUM: No free air or fluid. LYMPH NODES: No lymphadenopathy. VESSELS: Scattered atherosclerotic calcifications of the nonaneurysmal abdominal aorta and major branches. GI TRACT: Mild colonic diverticulosis. No CT evidence of diverticulitis. No abnormal bowel wall thickening or bowel obstruction. BONES AND SOFT TISSUES: No acute osseous injury. No suspicious lytic or blastic lesions. Grade 1 anterolisthesis at L4-5. IMPRESSION: No acute findings in the abdomen or pelvis. Signed by: Luis Narayan MD on 04/30/2019 10:58 AM
--- NOTE | 2019-04-30 13:24 | NUR ---
Nutrition Screen Note RD Recommendation for Physician: -Continue current diet per MD. -Consider 1800 ADA diet pending glucose trends. Plan of Care: RD following, monitoring for tolerance and adequacy Nutrition reason for involvement: Nutrition Risk Trigger- MST 4 Primary Diagnose(s): Chest pain, UTI PMH: hypertension, hyperlipidemia, diabetes mellitus, coronary artery disease, and dementia, Ht: 69 in Wt: 241 lb BMI: 35.7 kg/m2 IBW:[address] Assessment: 04/30: 73 YOM admitted for chest pain and UTI. Pt was seen sitting in his chair with at his bedside. Pt reported that his appetite has been good and denied any recent weight loss. Last weight in EMR is from January and pt was 244 lbs suggesting minor weight loss. Pt reported no N/V, had a BM yesterday and denied any chewing or swallowing issues as well as any food allergies. Pt was educated on the low Na diet and given educational handout. Pt had no other questions or concerns. Chart reviewed. Labs and meds reviewed. Gluc: 178. Will continue to monitor. Current Diet: cardiac Malnutrition Evaluation 04/30 The patient does not meet criteria for a specified degree of malnutrition at this time. Will re-evaluate at follow-up as appropriate. Diet Education Needs Assessment: Diet education indicated, pt accepted. Learner(s): pt Barriers: none Cultural/Language Modifications: none Readiness: acceptance Method: discussion, handout Topics: Low Na Diet Understanding/Compliance: verbalized understanding, anticipate fair compliance Nutrition Care Level: low Signed: Perla Yan, RD, LD
--- NOTE | 2019-04-30 14:35 | NUR ---
Visit made by the Spiritual Care Department Pastoral Visitor, Mere Jin. Pt sleeping soundly and no family present. Pastoral Visitor left a card describing availability of pre algebra teacher and instructions on how to contact a pre algebra teacher. ZULEYMA LEAL Cookie Breaker Spiritual Care Department O: [phone] Pager: [phone] ([phone] number calling from)
[2019-04-30] MEDS: MEMANTINE 10 MG TAB PO SCH (16:32)
[2019-04-30] MEDS: RIVAROXABAN 20 MG TABLET PO SCH (16:32)
[2019-04-30] MEDS: METFORMIN HCL 500 MG TAB PO SCH (16:32)
--- NOTE | 2019-04-30 16:51 | Consultation ---
DATE OF CONSULTATION: Cardiac Consultation REASON FOR CONSULTATION: Chest pain. HISTORY OF PRESENT ILLNESS: A 73-year-old gentleman, who is known to me, seen and evaluated in January 2019. The patient unfortunately is having dementia. Furthermore, he does have coronary artery disease. In July 2018, he had a cardiac catheterization at this institution by another outside sales. Showed the presence of three-vessel disease with totally occluded right coronary artery and severely calcified ostial circumflex and diseased mid LAD. The patient also seen in the Medical Center following that after a successful PCI. The plan was for medical therapy and the patient will be followed on May 30 by his outside sales in the [facility] for final decision and final plan about his coronary artery disease. Regarding his other health issue, he was at this institution with TIA in January. In the past also, the patient diagnosed with major bilateral pulmonary emboli in March 2018, and he is maintained on Xarelto since then. As per acute illness, the patient's was out of home, when she came to home, he told her he is having severe chest pain. She brought him to this institution, admitted for further management. The patient is still communicative, however, he is very, very forgetful. Medication for Alzheimer's seems not working. He is totally dependent on his . He does have easy fatigability, shortness of breath on exertion. There is no orthopnea, no paroxysmal nocturnal dyspnea. There is probably sleep apnea. REVIEW OF SYSTEMS: Extensive and will be summarized for clarity. GENERAL: No fever. No chills. HEENT: No hearing problem. No vision problem. CARDIAC AND PULMONARY: As per above. In addition to sleep apnea like symptoms, some orthopnea, but no paroxysmal nocturnal dyspnea. GASTROINTESTINAL: No hematemesis. No melena. GENITOURINARY: Increased frequency of urination. MUSCULOSKELETAL: Back pain, knee pain. PSYCHIATRIC: The patient is demented. He cannot remember much. CARDIAC: As per history and physical. SKIN: No skin rashes. ENDOCRINE: The patient is diabetic, on medication. PAST MEDICAL HISTORY: 1. Three-vessel coronary artery disease, calcified as described above. 2. Hypertension. 3. Hyperlipidemia. 4. Diabetes mellitus with end-organ damage. 5. Chronic renal insufficiency. 6. History of kidney stone. 7. Dementia. 8. Prostate cancer, in remission. 9. Sleep apnea. 10. Right and left shoulder surgery. 11. Nose surgery. 12. Bilateral cataract surgery. SOCIAL HISTORY: He is . He is retired. He used to work for [employer]. He is not alcohol drinker. HOME MEDICATIONS: Include: 1. Amlodipine 10 mg a day. 2. Aspirin 81 mg a day. 3. Bupropion XL 300 mg a day. 4. Ismo 30 mg a day. 5. Metoprolol-XL or Toprol-XL 25 mg a day. 6. Benicar 40 mg a day. 7. Pravastatin 20 mg a day. 8. Xarelto 20 mg a day. 9. Aricept 5 mg a day. 10. Lexapro 10 mg a day. 11. Namenda 10 mg a day. 12. Metformin 1000 mg twice a day. ALLERGIES: NONE. FAMILY HISTORY: Several members of the family with coronary artery disease and diabetes mellitus. PHYSICAL EXAMINATION: VITAL SIGNS: Height of 5 feet 9 inches, weight of 241 pounds, blood pressure 110/80, heart rate of 90, respiratory rate of 18. HEENT: Pupils are reactive. NECK: No elevation of jugular venous pulsation. No bruit. CHEST: Clear to auscultation and percussion. HEART: PMI 5th left intercostal space. Normal first and second heart sounds. ABDOMEN: Soft. Obesity. No organomegaly. No abdominal bruits. EXTREMITIES: No cyanosis, no clubbing, no edema. No signs of deep venous thrombosis. Decreased distal pulses. NEUROLOGIC: The patient is very, very forgetful. He is disoriented. He does not remember anything. He is able to move all extremities at ease. No gross motor deficits. LABORATORY DATA: BUN is 22, creatinine of 1.3, which is baseline for him. White blood cell count of 14.3, hemoglobin of 14.6, hematocrit 43%. EKG showing right bundle branch block, left posterior fascicular block. Normal sinus rhythm, ST changes. Serial cardiac enzymes are negative. Reviewing cardiac catheterization from July 2018, very limited view or probably only four views are scanned. Clearly, the right coronary is totally occluded and heavily calcified. The circumflex does have ostial disease with heavily calcified and the LAD got significant disease in its mid part and again calcified. IMPRESSION: 1. Coronary artery disease with angina. 2. Hypertension. 3. Dementia. 4. Diabetes mellitus with end-organ damage. 5. Chronic renal insufficiency. 6. Hyperlipidemia. 7. Prostate cancer, in remission. 8. Bilateral pulmonary emboli in 2018, on anticoagulation. We reviewed the patient's lab data, medication. We discussed it with his . Plan is medical therapy. The patient is already on beta-bria, calcium channel bria, aspirin, NERGA inhibitor, statin, nitrate, i.e., on maximum medical therapy. He is also on Xarelto. From a cardiac point of view, plan is medical therapy. The patient will be seen by his outside sales in the [facility] for final disposition on May 30 with same plan is for conservative approach. All questions are answered. MD RANDY Cortez/MODL /[id number]
[2019-04-30] MEDS: ESCITALOPRAM OXALATE 10 MG TAB PO SCH (21:06)
[2019-04-30] MEDS: METOPROLOL SUCCINATE 25 MG TAB XL PO SCH (21:06)
[2019-04-30] MEDS: DONEPEZIL HCL 5 MG TAB PO SCH (21:06)
[2019-04-30] MEDS: PRAVASTATIN 20 MG TAB PO SCH (21:06)
--- NOTE | 2019-04-30 21:06 | NUR ---
PT RESTING IN BED WITH NO S/S OF DISTRESS.RESPIRATIONS EVEN/NON LABORED.PT DENIES ANY NEEDS AT THIS TIME.AIR PUMP APPLIED TO MATTRESS.BED IN LOWEST/LOCKED POSITION. AT BEDSIDE.BED ALARM ACTIVATED.CALL LIGHT WITHIN EASY REACH.
--- NOTE | 2019-04-30 21:43 | History and Physical ---
REASON FOR ADMISSION: UTI. HISTORY OF PRESENT ILLNESS: This patient is very pleasant 73-year-old white male with history of morbidly obese. The patient has history of dementia and does not really provide any information. He does not know why he is here. The was at the bedside, who is telling me that he is here because having chest pain, but there is also concern that he was having fever, urgency, frequency. The patient was sent to the emergency room. In the emergency room, he was evaluated and it was noted when he first came in, his white count was 17.7, hemoglobin 16.7, sodium 142, potassium 4.4, and creatinine 1.92. Also, his urine was positive for WBCs and bacteria. So the patient is being admitted. He was currently on isosorbide, aspirin, ceftriaxone, Zofran, metformin, and the patient is currently in bed. PAST MEDICAL HISTORY: Obesity, dementia, UTI before, hypertension, diabetes mellitus, and depression. PAST SURGICAL HISTORY: Denies. ALLERGIES: NKA. SOCIAL HISTORY: There is no smoking, drug abuse, or alcohol abuse. FAMILY HISTORY: Otherwise noncontributory. REVIEW OF SYSTEMS: Could not be obtained, but according to , he is otherwise in good health, he is a little bit more and more confused today. LABORATORY DATA: Reviewed. Chart reviewed. Cultures reviewed. PHYSICAL EXAMINATION: GENERAL: He is not alert, confused, does not seem to be in acute distress. VITAL SIGNS: Stable, currently afebrile. HEENT: He is not icteric. NECK: Supple. CHEST: Clear bilateral. HEART: S1, S2. No S3, S4, or murmur. ABDOMEN: Soft. Bowel sounds present. Obese. No tenderness. No hepatosplenomegaly. EXTREMITIES: No edema. IMPRESSION: 1. Chest pain. Cardiology has been consulted. 2. Urinary tract infection and sepsis, on Rocephin. Await urine culture and blood cultures. 3. Dementia. 4. Hypertension. 5. Diabetes. 6. We will follow. MD LEXA Long/JOSE /[id number]
[2019-05-01] VITALS (7 sets, daily range): BP systolic 104–138; BP diastolic 60–75
--- NOTE | 2019-05-01 07:00 | NUR ---
received am report from night nurse and morning rounds done. pt is alert resting in bed, no s/s of distress. call light within reach and instructed pt to call nurse for help. is at the bedside.
--- NOTE | 2019-05-01 07:25 | NUR ---
REPORT GIVEN TO ONCOMING NURSE.WALKING ROUNDS MADE.PT RESTING IN BED WITH NO S/S OF DISTRESS.
[2019-05-01] MEDS: ASPIRIN 81 MG CHEW TAB PO SCH (09:19)
[2019-05-01] MEDS: ISOSORBIDE MONONITRATE 20 MG TAB PO SCH (09:19)
[2019-05-01] MEDS: OLMESARTAN 20 MG TAB PO SCH (09:19)
[2019-05-01] MEDS: METFORMIN HCL 500 MG TAB PO SCH ×2 (09:19→17:00)
[2019-05-01] MEDS: BUPROPION HCL 150 MG TABCR PO SCH (09:19)
[2019-05-01] MEDS: CEFTRIAXONE SOD 1 GM/NS 50 ML 50 ML IV SCH ×2 (09:19→21:15)
[2019-05-01] MEDS: AMLODIPINE BESYLATE 10 MG TAB PO SCH (09:19)
[2019-05-01] MEDS: MEMANTINE 10 MG TAB PO SCH ×2 (09:19→17:00)
--- NOTE | 2019-05-01 11:46 | Progress Note ---
DATE: 05/01/2019 SUBJECTIVE: Mr. Peralta is a 73-year-old man with history of prostate cancer; sleep apnea; dementia; coronary artery disease, status post stent; hypertension; diabetes; and hyperlipidemia, brought to the emergency room by his , complaining of worsening of confusion and chest pain. He was found to have elevated white count. He was started on IV antibiotics for possible UTI. Also, the patient has been evaluated by statistics tutor, Dr. Colon. OBJECTIVE: GENERAL: Today, he is more awake and alert. VITAL SIGNS: Temperature is 97.6, blood pressure is 121/71. HEART: Irregularly irregular. LUNGS: Clear to auscultation. ABDOMEN: Soft. LABORATORY DATA: On the blood work, potassium is 3.9, creatinine is 1.30, and glucose 178. White count is 14.3, hemoglobin 14.6, and hematocrit 43.4. Urine culture so far has been negative. IMAGING DATA: Chest x-ray shows no acute findings. Abdominal and pelvic CT done yesterday showed no acute findings either. ASSESSMENT: 1. Chest pain. He is seen already by Cardiology, so far workup has been negative. Medical management has been recommended. 2. Sepsis secondary to probably urinary tract infection, on IV antibiotics. 3. Coronary artery disease, status post stent. 4. Dementia. 5. 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 6. Chronic kidney disease, stage 3. 7. Hyperlipidemia. 8. Prostate cancer in remission. 9. History of PE in 2018, on anticoagulation. PLAN: At the present time is to continue IV antibiotics. The patient is on beta-bria, calcium-channel blockers, NEGRA inhibitor, aspirin, statins, and nitrates. He is also taking Xarelto. We are going to continue all that medications. In the morning, we are going to repeat white count. The patient is stable and white count is down. He may go home in the morning. All this was discussed in extension with his and the patient. All questions were answered to his satisfaction. MD LATA Sullivan/JOSE /[id number]
--- NOTE | 2019-05-01 16:44 | NUR ---
Order for home health and DME. Spoke to pt's Marlene Calderon at bedside. States to use any company in network with insurance for both. Home Health choice letter signed for [facility], [facility], and [facility]. DME choice letter signed for [facility] and [facility]. Signed choice letters placed in chart. Copy to pt's . Phone numbers of companies written on choice letter. Home health referral was faxed to [facility]. rep Marianela with company was notified of referral and anticipated discharge for tomorrow. DME orders were faxed to [facility] [employer]. / . Andriy Vásquez with [facility] was informed of referral and notified of anticipated dc for tomorrow.
[2019-05-01] MEDS: RIVAROXABAN 20 MG TABLET PO SCH (17:00)
--- NOTE | 2019-05-01 19:20 | NUR ---
Patient visited in room during nursing rounds. Patient alert and oriented x3. No distress or discomfort noted. On 2L NC. Pt ambulates in room using walker with standby assist prn. Uses urinal prn. Pt on scheduled IV antibiotics. at bedside. Will monitor pt closely.
[2019-05-01] MEDS: METOPROLOL SUCCINATE 25 MG TAB XL PO SCH (21:12)
[2019-05-01] MEDS: ESCITALOPRAM OXALATE 10 MG TAB PO SCH (21:12)
[2019-05-01] MEDS: PRAVASTATIN 20 MG TAB PO SCH (21:12)
[2019-05-01] MEDS: DONEPEZIL HCL 5 MG TAB PO SCH (21:12)
[2019-05-02 00:13] VITALS: BP 125/71
[2019-05-02 05:25] LABS: HEMATOCRIT 41.7 % (38.2-49.6); HEMOGLOBIN 13.6 g/dL (14.0-18.0); MEAN CORPUSCULAR HEMOGLOBIN 29.4 pg (28-32); MEAN CORPUSCULAR HGB CONC 32.6 g/dL (31-35); MEAN CORPUSCULAR VOLUME 90.1 fL (81-99); PLATELET COUNT 226 x10e3/uL (140-360); RED BLOOD COUNT 4.63 x10e6/uL (4.3-5.7); RED CELL DISTRIBUTION WIDTH 13.7 % (11.7-14.4)
[2019-05-02 05:31] VITALS: BP 131/67
--- NOTE | 2019-05-02 06:55 | NUR ---
Walking rounds done and report received. Patient is awake, alert and able to make needs known. Visitor at the bedside. Tele#[address] POC discussed. Patient instructed to call for assistance as needed and verbalized understanding. Bed in lowest position, locked, and call grubbs within reach.
[2019-05-02 07:46] LABS: PLATELET ESTIMATE ADEQUATE
[2019-05-02 07:47] LABS: PLATELET MORPHOLOGY COMMENT FEW LARGE; RBC MORPHOLOGY COMMENT NORMAL
[2019-05-02 08:00] VITALS: BP 132/82
--- NOTE | 2019-05-02 08:50 | NUR ---
Clarice Okeefe, rep, at bedside setting up home health.
[2019-05-02] MEDS: ASPIRIN 81 MG CHEW TAB PO SCH (08:54)
[2019-05-02] MEDS: OLMESARTAN 20 MG TAB PO SCH (08:54)
[2019-05-02] MEDS: BUPROPION HCL 150 MG TABCR PO SCH (08:54)
[2019-05-02] MEDS: AMLODIPINE BESYLATE 10 MG TAB PO SCH (08:54)
[2019-05-02] MEDS: METFORMIN HCL 500 MG TAB PO SCH (08:54)
[2019-05-02] MEDS: CEFTRIAXONE SOD 1 GM/NS 50 ML 50 ML IV SCH (08:54)
[2019-05-02] MEDS: ISOSORBIDE MONONITRATE 20 MG TAB PO SCH (08:54)
[2019-05-02] MEDS: MEMANTINE 10 MG TAB PO SCH (08:54)
--- NOTE | 2019-05-02 11:08 | NUR ---
Per Dr. Monae, patient may be discharged today without antibiotics.
--- NOTE | 2019-05-02 11:42 | NUR ---
Per Dr. Colon patient may be discharged from cardiology stand point. Dr. Chavez paged to notify.
[2019-05-02 12:00] VITALS: BP 109/71
--- NOTE | 2019-05-02 13:15 | NUR ---
Patient discharged from facility to home. Patient assisted out via staff via wheelchair. Reviewed all discharge paperwork with prior nurse, RX's given and follow up appts reviewed. No s/s of distress noted
--- NOTE | 2019-05-03 07:52 | Discharge Summary ---
HISTORY: Mr. Fabian Calderon is a 73-year-old man with history of prostate cancer, sleep apnea, dementia, coronary artery disease, status post stent, hypertension, diabetes, and hyperlipidemia, brought to the emergency room with chest pain and confusion. He was found to have an elevated white count, started on IV antibiotics for possible UTI. Cardiology consult was requested due to the chest pain. Medical management was advised by Dr. Colno. OBJECTIVE: GENERAL: At the present time, today, the patient is awake and alert. He is feeling better. VITAL SIGNS: Afebrile. White count is normal. Temperature is 98.7, blood pressure 131/67. HEART: Regular rate. LUNGS: Clear to auscultation. ABDOMEN: Distended and soft. LABORATORY DATA: On the blood work, potassium is 3.9, creatinine is 1.30, glucose is 178. White count is 6.90, hemoglobin 13.6, hematocrit is 41.7. Chest x-ray shows no acute finding. Abdominal and pelvic CT shows also no acute findings. Urine culture came back negative. No growth. DISCHARGE DIAGNOSES: 1. Chest pain. Continue medical management. 2. Probably urinary tract infection with fever and white count. Received IV antibiotics, resolved. 3. Coronary artery disease, status post stent. 4. Dementia. 5. 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 6. Chronic kidney disease, stage 3. 7. Hyperlipidemia. 8. Prostate cancer on remission. 9. History of PE in 2018, on anticoagulation. PLAN: The plan at the present time is to discharge the patient home if it is okay with Dr. Monae and Dr. Colon. Continue his beta blockers, NEGRA inhibitor, calcium channel bria, aspirin, statin, and nitrates. He also needs to continue taking his Xarelto. He needs to follow up with his PCP in one week. We are also going to get home health for a provider for this patient at home. All this was discussed in detail with the patient and at bedside. All questions were answered to satisfaction. Please see home medication reconciliation list. MD LATA Sullivan/JOSE /[id number]
== END 2019-05-02 13:25 | disposition home health service (06) | DRG 872 ==
LOC: ER 19:05 → OBSVTOIN 21:06 → ERHOLD 21:06 → MED/SURG2 22:11
PROVIDERS: ADMIT Internal Medicine; ATTEND Internal Medicine
DX: A41.9 Sepsis, unspecified organism (principal); N10 Acute pyelonephritis; R65.20 Severe sepsis without septic shock; F03.90 Unspecified dementia, unspecified severity, without behavioral disturbance, psychotic disturbance, mood disturbance, and anxiety; E66.01 Morbid (severe) obesity due to excess calories; Z68.35 Body mass index [BMI] 35.0-35.9, adult; R07.9 Chest pain, unspecified; I25.119 Atherosclerotic heart disease of native coronary artery with unspecified angina pectoris; E78.5 Hyperlipidemia, unspecified; E11.22 Type 2 diabetes mellitus with diabetic chronic kidney disease; I12.9 Hypertensive chronic kidney disease with stage 1 through stage 4 chronic kidney disease, or unspecified chronic kidney disease; Z87.442 Personal history of urinary calculi; Z85.46 Personal history of malignant neoplasm of prostate; G47.30 Sleep apnea, unspecified; Z83.3 Family history of diabetes mellitus; Z82.49 Family history of ischemic heart disease and other diseases of the circulatory system; Z86.711 Personal history of pulmonary embolism; Z79.01 Long term (current) use of anticoagulants; Z95.5 Presence of coronary angioplasty implant and graft; N18.3 Chronic kidney disease, stage 3 (moderate); H91.90 Unspecified hearing loss, unspecified ear; Z79.82 Long term (current) use of aspirin; Z79.84 Long term (current) use of oral hypoglycemic drugs
CPT/HCPCS: 36415; 71045; 74176; 80053; 81001; 82550; 82553; 82948; 83735; 84484; 85007; 85025; 85027; 85610; 85730; 87086; 93005; 93306; 97139; 99284; J0696; J2405; J3370; J7030

== ENCOUNTER 2019-11-26 20:32 | Emergency (ER) | payer OTHER, MEDICARE ==
[~2019-11-26] VITALS: Ht 175.3 cm; Wt 109.3 kg
--- NOTE | 2019-11-26 20:36 | Emergency Department Note ---
History of Present Illnes History of Present Illness Stated Complaint: NECK PAIN History of Present Illness This is a 74 year old male s/p fall after he was attempting to move fr om his recliner to his chair . Denies LOC . Arrived by EMS NAD. 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 Any updates have been documented here. Past Medical History Recent Fever: No Clinical Suspicion of Infectio: No Past Medical History: Hypertension, Diabetes, CAD, Cancer, Kidney Stones, Depression, Hyperlipedemia Other Medical History: Dementia Prostate Cancer, Past Surgical History: Cataract Removal Other Surgery: 2 stents in heart,R shoulder surgery, nose surgery for sleep apnea, prostectomy, kidney surgery Social History Smoking Cessation: Never Smoker Alcohol Use: None Any Illegal Drug Use: No Other Last Tetanus: UNKNOWN Review of Systems Review of Systems Constitutional: no symptoms EENTM: no symptoms Cardiovascular: no symptoms Respiratory: no symptoms Gastrointestinal: no symptoms Genitourinary: no symptoms Musculoskeletal: neck pain Integumentary: no symptoms Neurological: no symptoms Psychological: no symptoms Endocrine: no symptoms Hematological/Lymphatic: no symptoms Review of other systems All other systems reviewed and negative. Physical Exam Related Data Allergies: Coded Allergies: No Known Drug Allergies (Verified Allergy, Mild, 03/12/18) Triage Vital Signs Vital Signs Date Time Temp Pulse Resp B/P (MAP) Pulse Ox O2 Delivery O2 Flow Rate FiO2 11/26/19 20:45 98.0 87 17 138/73 96 Physical Exam CONSTITUTIONAL Constitutional: well-developed, well-nourished HENT HENT: normocephalic, atraumatic, oropharynx clear/moist, nose normal HENT - Ear: left ext ear normal, right ext ear normal EYES Eyes: PERRL, conjunctivae normal NECK Neck: ROM normal PULMONARY Pulmonary: effort normal, breath sounds normal CARDIOVASCULAR Cardiovascular: regular rhythm, heart sounds normal, capillary refill normal, normal rate GASTROINTESTINAL Abdominal: soft, nontender, bowel sounds normal GENITOURINARY Genitourinary: exam deferred SKIN Skin: warm, dry MUSCULOSKELETAL Musculoskeletal: ROM normal NEUROLOGICAL Neurological: alert, oriented x 3, no gross motor or sensory deficits PSYCHOLOGICAL Psychiatric/behavioral: mood/affect normal, judgement normal Results Imaging Y: Yes Impressions [facility] [address] [address] Patient Name: FABIAN GILLIAM MR #: [id number] : 1945 Age/Sex: 74/M Req #: [id number] Adm Physician: Ordered by: TASHA VILLELA DO Report #: [id number] Location: ER Room/Bed: Procedure: [id number] CT/CT BRAIN WO Exam Date: 11/26/19 Exam Time: 2121 REPORT STATUS: Signed Patient name: Fabian Gilliam Date of : 1945 Date of exam: 11/26/[address] HEAD WO CONTRAST HISTORY: Altered mental status COMPARISON: Head CT 01/23/2019, MRI of the brain 01/24/2019 TECHNIQUE: Noncontrast axial scans were obtained from skull base to the vertex. Coronal and sagittal reconstructions obtained from the axial data. One or more of the following dose reduction techniques were used: Automated exposure control, adjustment of the mA and/or kV according to patient size, and/or utilization of iterative reconstruction technique. DISCUSSION: Scalp/Skull: Unremarkable. Brain sulci: Mildly prominent. Ventricles: Unchanged moderate supratentorial ventriculomegaly is out of proportion to sulcal prominence. Extra-axial spaces: No masses or fluid collections. Carotid siphon and vertebral artery calcifications are present. Parenchyma: Unchanged mild to moderate periventricular white matter hypodensities are likely chronic microvascular ischemic changes. Otherwise, no mass, hemorrhage, or large vascular territory acute infarct. Dural sinuses: No abnormal densities. Sellar/Suprasellar region: Intact. Skull base: Intact. Incidental findings: Bilateral ocular lens replacement. IMPRESSION: 1. Unchanged moderate supratentorial ventriculomegaly is out of proportion to sulcal prominence. Correlate for communicating hydrocephalus (i.e. normal pressure hydrocephalus in the appropriate clinical setting). 2. Otherwise, no acute intracranial abnormalities. 3. Mild to moderate supratentorial chronic microvascular ischemic change. Mild generalized cerebral volume loss. Signed by: Dr. Yevgeniy Carrington M.D. on 11/27/2019 3:33 AM Dictated By: YEVGENIY CARRINGTON MD 2 Transcribed By: MIAH on 11/27/19332 COPY TO: TASHA VILLELA DO~ [address] [address] Patient Name: [id number] e 2ya rde : Procedure: [id number] CT/CT CERVICAL SPINE WO Exam Da:/ x m:2R ieP t:1em/ THNnI nrd CTotvpetot Si aotd more e pu ,ueA/ rinzrtro Donya eld eioi bxfcmshaejon ee. hvea dilb.l deltchne rpssalsm t o spoeato tgshaxocymgg9S7opzmt carotdlfdlu isnlaly i MRSeu menswtdei Sg fu0ie P /20O Assessment & Plan Assessment & Plan Problems: (1) Head injury (2) Neck pain Assessment & Plan Patient to be discharged to home. CT scan reviewed by me Depart Disposition: HOME, SELF-[facility] Meds Reported Medications Aspirin (ASPIR 81) 81 Mg Tablet., 81 MG PO DAILY 04/29/19 Rivaroxaban (XARELTO) 20 Mg Tablet, 20 MG PO DAILY 04/29/19 Metoprolol Succinate (METOPROLOL SUCCINATE) 25 Mg Tab.er.24h, 25 MG PO HS 01/23/19 Escitalopram Oxalate (LEXAPRO) 10 Mg Tablet, 20 MG PO HS, #30 TAB 08/02/18 Olmesartan Medoxomil (BENICAR) 20 Mg Tablet, 40 MG PO DAILY, #30 TAB 03/15/18 Amlodipine Besylate (AMLODIPINE BESYLATE) 10 Mg Tablet, 10 MG PO DAILY, #30 TAB 03/12/18 Donepezil Hcl (ARICEPT) 5 Mg Tablet, 10 MG PO HS, #60 TAB 03/12/18 Memantine Hcl (NAMENDA) 10 Mg Tablet, 10 MG PO BID, #30 TAB 03/12/18 Isosorbide Mononitrate (ISOSORBIDE MONONITRATE) 20 Mg Tablet, 30 MG PO DAILY, #30 TAB 03/12/18 Bupropion Hcl (BUPROPION XL) 300 Mg Tab.er.24h, 300 MG PO DAILY 03/12/18 Pravastatin Sodium (PRAVASTATIN SODIUM) 20 Mg Tablet, 20 MG PO HS 01/01/13 Metformin Hcl (GLUCOPHAGE) 1,000 Mg Tablet, 1000 MG PO BID 01/01/13 TASHA VILLELA DO November 26, 2019 20:36
--- OUTSIDE RECORDS SUMMARY | 2019-11-26 20:36 | XMS REPORT | Continuity of Care Document ---
Author Author [employer] POLLY Gusman Organization [employer] Address Unknown Phone Unavailable Care Team Providers Care Animal Taxonomist Name Role Phone [employer] Unavailable Un available Problems Problem Status Onset Date Classification Date Reported Comments Source DIABETES MELLITUS Active 01/08/2014 Condition 01/08/2014 Medical Group PTCA - HX OF Active 01/08/2014 Condition 01/08/2014 Medical Group CAD Active Condition 01/08/2014 Medical Group HYPERTENSION Active Condition 01/08/2014 Medical Group HYPERCHOLESTEROLEMIA Active Condition 01/08/2014 Medical Group SLEEP APNEA Active Condition 01/08/2014 Medical Group Medications Medication Details Route Status Patient Instructions Ordering Provider Order Date Source ESCITALOPRAM OXALATE 10 MG TABS 1 tablet daily Active 12/16/2013 Medical Group ASPIRIN EC LOW DOSE 81 MG TBEC ONE PO QD Active 06/12/2013 Medical Group ASPIRIN EC LOW DOSE 81 MG TBEC ONE PO QD Active 06/12/2013 Medical Group NORVASC 10 MG TABS No [...] tid No Longer Active 10/22/2012 Medical Group LISINOPRIL [...] CAPS No Longer Active 10/22/2012 Medical Group ACULAR LS 0.4 % SOLN 1 gtt tid No Longer Active 09/17/2012 Medical Group MOBIC 15 MG TABS 1 po qd No Longer Active 05/21/2012 Medical Group FLEXERIL 5 MG TABS 1 po q pm No Longer Active 05/21/2012 Medical Group MOBIC 15 MG TABS 1 po qd Active 05/21/2012 Medical Group BUDEPRION SR 150 MG [id number] 1 po bid Active 04/16/2012 Medical Group LEXAPRO 10 MG TABS 1 po qd No Longer Active 03/19/2012 Medical Group LEXAPRO 10 MG TABS 1 po qd Active 03/19/2012 Medical Group METFORMIN HCL 1000 MG TABS 1 p o bid Active 10/17/2011 Medical Group PRAVACHOL 40 MG TABS 1 po qd Active 10/17/2011 Medical Group EXFORGE 10-160 MG TABS 1 po qd Active 10/17/2011 Medical Group METFORMIN HCL 1000 MG TABS 1 p o bid Active 10/17/2011 Medical Group METFORMIN HCL 1000 MG TABS 1 p o bid Active 10/17/2011 Medical Group PRAVACHOL 40 MG TABS 1 po qd Active 10/17/2011 Medical Group Allergies, Adverse Reactions, Alerts No Known Medication Allergies Immunizations No Data Provided for This Section Results Order Name Results Value Reference Range Date Interpretation Comments Source Chemistry SODIUM 139 10/19/2007 [facility] Group Chemistry [...] [facility] Hematology HCT 47.1 02/08/2006 [facility] Hematology HGB 16.4 02/08/2006 [facility] Hematology PLATELETS 249 02/08/2006 [facility] Pathology Reports No Data Provided for This [...] Weight 246 10/22/2012 Medical Group Height 69 0 10/22/2012 Medical Group Systolic (mm Hg) 144 [...] Provider ADM Date DC Date Status Source [facility] Cardiolog y Office Visit [id number] Elmer Vides MD 10/22/2012 10/22/2012 Medical [facility] Cardiolog y Office Visit [id number] Elmer Vides MD 06/12/2013 06/12/2013 Medical [facility] Cardiolog y Office Visit [id number] Elmer Vides MD 01/08/2014 01/08/2014 Medical [facility] Procedures No Data Provided for This Section Assessment and Plan No Data Provided for This Section Plan of Care No Data Provided for This Section Social History No Data Provided for This Section Family History No Data Provided for This Section Advance Directives No Data Provided for This Section Functional Status No Data Provided for This Section
--- OUTSIDE RECORDS SUMMARY | 2019-11-26 20:36 | XMS REPORT | Summary of Care ---
Author Author POLLY BERMUDEZ M.D. Organization Unknown Address Unknown Phone Unavailable Care Team Providers Care Floor Worker Transfer [place] Name Role Phone CLARKE BERMUDEZ M.D. Unavailable Unavailable NICO Faustin, CARMELINA Unavailable Unavailable JOSUÉ TODD MD Unavailable Unavailable Brendon LAUGHLIN, Keo Unavailable Unavailable CLARKE MTZ MD Unavailable Unavailable Unavailable Unavailable Functional Status Name Dates Details Functional status health issues are not documented Status: Name Dates Details Cognitive status health issues are not d ocumented Status: Problems Name Dates Details Coronary artery disease (414.00, I25.10) Status: Active Lower extremity edema (782.3, R60.0) Status: Active Medications Name Dates Details metFORMIN [...] Oral Tablet TAKE 1 TABLET DAILY. * Quantity: 90 Refills: 3 CLARKE BERMUDEZ M.D. Active Pravastatin Sodium 20 MG Oral Tablet TAKE 1 TABLET DAILY. * Quantity: 1 Refills: 3 CARMELINA WALSH M.D. Active 90 Tablet Bottle Donepezil HCl - 10 MG Oral Tablet TAKE 1 TABLET DAILY. * Refills: 0 Active Xarelto 15 MG Oral Tablet TAKE 1 TABLET DAILY * Quantity: 90 Refills: 1 CLARKE BERMUDEZ M.D. Active Olmesartan Medoxomil 40 MG Oral Tablet TAKE 1 TABLET DAILY. * Refills: 0 Active Memantine HCl - 10 MG Oral Tablet TAKE 1 TABLET TWICE DAILY. * Refills: 0 Active LORazepam 0.5 MG Oral Tablet TAKE 1 TABLET TWICE DAILY. * Refills: 0 Active Isosorbide Mononitrate ER 60 MG Oral Tablet Extended Release 24 Hour TAKE 1 TABLET DAILY DIRECTED. * Quantity: 90 Refills: 3 CLARKE BERMUDEZ M.D. * Start : 30-May-2019 Active Metoprolol Succinate ER 25 MG Oral Tablet Extended Release 24 Hour TAKE 1 TABLET TWICE DAILY * Quantity: 180 Refills: 3 CLARKE BERMUDEZ M.D. * Start : 30-May-2019 Active Furosemide 20 MG Oral Tablet take two 20mg tablets daily for 7 days orally. After that take one 20mg tablet d aily orally * Quantity: 90 Refills: 1 PEYTON LAUGHLIN [place] * Start : 26-Sep-2019 Active Allergies and Adverse Reactions Name Dates Details No Known Drug Allergies (Allergy) Status : Active Past Medical History Name Dates Details History of deep venous thrombosis (V12.5 1, Z86.718) Status: Resolved History of diabetes mellitus (V12.29, Z8 6.39) Status: Resolved History of hyperlipidemia (V12.29, Z86.3 9) Status: Resolved History of hypertension (V12.59, Z86.79) Status: Resolved History of malignant neoplasm of prostat e (V10.46, Z85.46) Status: Resolved History of Multiple kidney stones (592.0 , N20.0) Status: Resolved History of pulmonary embolism (V12.55, Z 86.711) Status: Resolved History of stroke (V12.54, Z86.73) Status: Resolved Procedures Procedure Dates Details [QL] BASIC METABOLIC PANEL W/EGFR Date: 26-Sep-2019 [QL] CMP W/EGFR Date: 14-Nov-2019 [QL] CBC (INCLUDES DIFF/PLT) Date: 14-Nov-2019 History of Coronary artery stent placement Completed Immunization Name Dates Details Immunizations not documented Family History Name Dates Details Family history of myocardial infarction (V17.3, Z82.49) Status: Active Social History Name Dates Details - Status: Name Dates Details Never smoked tobacco (finding) Vital Signs Date Test Result Details No Known Vitals to report Results Date Description Value Details Results not documented Plan of Care Name Dates Details Planned Observations Planned Goals not documented Planned Encounters Appointment; CLARKE BERMUDEZ M.D. On: 13-Feb-2020 13:30 Interventions Provided Medication Changes* amLODIPine Besylate 10 MG Oral Tablet - Renew Instructions Name Dates Details Instructions not documented Encounters Appointment; BURAK HAYES M.D. Encounter Diagnosis: Problem not documented On: 08-Aug-2018 9:15 Appointment; CLARKE BERMUDEZ M.D. Encounter Diagnosis: Problem not documented On: 09-Aug-2018 13:00 Appointment; PROCEDURES, CARDIO Encounter Diagnosis: Problem not documented On: 24-Aug-2018 9:00 Appointment; CLARKE BERMUDEZ M.D. Encounter Diagnosis: Problem not documented On: 01-Nov-2018 16:00 Appointment; CLARKE BERMUDEZ M.D. Encounter Diagnosis: Problem not documented On: 13-Dec-2018 13:00 Appointment; CLARKE BERMUDEZ M.D. Encounter Diagnosis: Problem not documented On: 30-May-2019 13:45 Appointment; CLARKE BERMUDEZ M.D. Encounter Diagnosis: Problem not documented On: 26-Sep-2019 16:00 Appointment; CLARKE BERMUDEZ M.D. Encounter Diagnosis: Problem not documented On: 14-Nov-2019 15:30 Appointment; CLARKE BERMUDEZ M.D. Encounter Diagnosis: Problem not documented On: 21-Nov-2019 14:45
--- OUTSIDE RECORDS SUMMARY | 2019-11-26 20:36 | XMS REPORT | Summary of Care ---
Author Author POLLY Shea LVN Organization Unknown Address Unknown Phone Unavailable Care Team Providers Care Furnace Puncher Name Role Phone LARA Faustin, CLARKE Unavailable Unavailable NICO Faustin, CARMELINA Unavailable Unavailable Marsha Shea LVN Unavailable Unavailable Brendon LAUGHLIN, Keo Unavailable Unavailable LARA LAUGHLIN ND, CLRAKE Unavailable Unavailable Unavailable Unavailable Functional Status Name [...] TABLET DAILY. * Quantity: 90 Refills: 3 ANOOPASENA Baljinder.Alvaro., CARMELINA Active Pravastatin Sodium 20 MG Oral Tablet TAKE 1 TABLET DAILY. * Quantity: 1 Refills: 3 NICO Gale.Alvaro., CARMELINA Active 90 Tablet Bottle Donepezil HCl - [...] TABLET DAILY DIRECTED. * Quantity: 90 Refills: 0 NICO Faustin, CARMELINA * Start : 30-May-2019 Active Metoprolol Succinate ER 25 MG Oral Tablet Extended Release 24 Hour TAKE 1 TABLET TWICE DAILY * Quantity: 180 Refills: 0 SUDASENA Baljinder.D., CARMELINA * Start : 30-May-2019 Active Allergies and Adverse Reactions Name Dates [...] Z86.73) Status: Resolved Procedures Procedure Dates Details History of Coronary artery stent placement Completed Immunization Name Dates Details Immunizations not documented Family History Name Dates Details Family history of myocardial infarction (V17.3, Z82.49) Status: Active Social History Name Dates Details - Status: Name Dates Details Never smoker Vital Signs Date Test Result Details No Known Vitals to report Results Date Description Value Details Results not documented Plan of Care Name Dates Details Planned Observations Planned Goals not documented Planned Encounters Appointment; CLARKE BERMUDEZ M.D. On: 08-Aug-2019 14:30 Interventions Provided Medication Changes* Xarelto 15 MG Oral Tablet - Renew Instructions Name [...]
--- OUTSIDE RECORDS SUMMARY | 2019-11-26 20:36 | XMS REPORT | Summary of Care ---
Author Author POLLY BERMUDEZ M.D. Organization Unknown Address Unknown Phone Unavailable Care Team Providers Care Director Of It Operations Name Role Phone CLARKE BERMUDEZ M.D. Unavailable Unavailable CARMELINA WALSH M.D. Unavailable Unavailable JOSUÉ TODD MD Unavailable Unavailable Brendon LAUGHLIN, Keo Unavailable Unavailable LARA RAYA, CLARKE Unavailable Unavailable Unavailable Unavailable Functional Status Name [...] TABLET DAILY. * Quantity: 90 Refills: 3 CARMELINA WALSH M.D. Active Pravastatin Sodium 20 MG Oral [...] DAILY DIRECTED. * Quantity: 90 Refills: 0 CARMELINA WALSH M.D. * Start : 30-May-2019 Active Metoprolol Succinate ER 25 MG Oral Tablet Extended Release 24 Hour TAKE 1 TABLET TWICE DAILY * Quantity: 180 Refills: 0 CARMELINA WALHS M.D. * Start : 30-May-2019 Active Furosemide 20 MG Oral Tablet take two 20mg tablets daily for 7 days orally. After that take one 20mg tablet d aily orally * Quantity: 90 Refills: 1 PEYTON LAUGHLIN, JOSUÉ * Start : 26-Sep-2019 Active Allergies and [...] Z86.73) Status: Resolved Procedures Procedure Dates Details [QLH] BASIC METABOLIC PANEL W/EGFR Date: 26-Sep-2019 History of Coronary artery stent placement Completed Immunization Name Dates Details Immunizations not documented Family History Name Dates Details Family history of myocardial infarction (V17.3, Z82.49) Status: Active Social History Name Dates Details - Status: Name Dates Details Never smoked tobacco (finding) Vital Signs Date Test Result Details [id number] Systolic blood pressure 126 mm[Hg] Status: Comments : Location: LUE; Position: Sitting Diastolic blood pressure 72 mm[Hg] Status: Comment s: Location: LUE; Position: Sitting [id number] Systolic blood pressure 147 mm[Hg] Status: Comments : Location: LUE; Position: Sitting Diastolic blood pressure 82 mm[Hg] Status: Comment s: Location: LUE; Position: Sitting Body height 69 in Status: Weight 240 lb Status: Body mass index (BMI) [Ratio] 35.44 kg/m2 Status: Body surface area Derived from formula 2.23 m2 S tatus: Heart Rate 73 /min Status: Comments: Qu ality: Normal O2 SAT 94 % Status: Comments: So urce: RA Results Date Description Value Details Results not documented Plan of Care Name Dates Details Planned Observations [[facility] BASIC METABOLIC PANEL W/EGFR On: 03-Oct-2019 Intent Planned Goals not documented Planned Encounters Appointment; CLARKE BERMUDEZ M.D. On: 14-Nov-2019 15:30 Interventions Provided Medication Changes* Furosemide 20 MG Oral Tablet - Start Plan* - will start lasix (40 mg for 7 days followed by 20mg daily) * - bmp ordered for next week * - cont Toprol 25 mg BID and Imdur 60 mg daily * - continue max dose Olmesartan and Amlodipine and refill all other cardiac meds * - RTC 6 weeks Instructions Name Dates Details Instructions not documented [...]
--- OUTSIDE RECORDS SUMMARY | 2019-11-26 20:36 | XMS REPORT | Summary of Care ---
Author POLLY Shaffer R.N. Organization Unknown Address [facility] Phone Unavailable Care Team Providers Care Power Hammer Operator Name Role Phone LARA Faustin, CLARKE Unavailable Unavailable NICO Faustin, CARMELINA Unavailable Unavailable PEYTON LAUGHLIN, JOSUÉ Unavailable Unavailable Brendon LAUGHLIN, Keo Unavailable Unavailable LARA LAUGHLIN ND, CLARKE Unavailable Unavailable Unavailable Unavailable Functional Status Name Dates Details Functional status health issues are not documented Status: Name Dates Details Cognitive status health issues are not d ocumented Status: Problems Name Dates Details Lower extremity edema (782.3, R60.0) Status: Active Coronary artery disease (414.00, I25.10) Status: Active [...] aily orally * Quantity: 90 Refills: 1 AZIZA TODD [facility] * Start : 26-Sep-2019 Active Allergies and [...] Details Planned Observations Planned Goals not documented Interventions Provided Medication Changes* Isosorbide Mononitrate ER 60 MG Oral Tablet Extended Release 24 Hour - Renew * Metoprolol Succinate ER 25 MG Oral Tablet Extended Release 24 Hour - Renew Labs/Procedures/Imaging* [QL] CBC (INCLUDES DIFF/PLT); To Be Done: 14 Nov 2019 * [QL] CMP W/EGFR; To Be Done: 14 Nov 2019 Plan* -- Refill Imdur and metoprolol * -- Continue Lasix as needed * -- Check labs (CMP and CBC) * -- Schedule for telephone visit in 1 week. * -- Return to clinic in 3 months. Instructions Name Dates Details [...]
--- OUTSIDE RECORDS SUMMARY | 2019-11-26 20:36 | XMS REPORT | Summary of Care ---
Author Author POLLY BERMUDEZ M.D. Organization Unknown Address Unknown Phone Unavailable Care Team Providers Care Power Grader Operator Name Role Phone CLARKE BERMUDEZ M.D. Unavailable [...] * Quantity: 90 Refills: 1 PEYTON LAUGHLIN, [place] * Start : 26-Sep-2019 Active Allergies and [...] [QL] BASIC METABOLIC PANEL W/EGFR Date: 26-Sep-2019 History [...] Tablet Extended Release 24 Hour - Renew Plan* -- Refill Imdur and metoprolol * [...]
--- OUTSIDE RECORDS SUMMARY | 2019-11-26 20:36 | XMS REPORT | Summary of Care ---
Author Author POLLY Biggs M.A. Organization Unknown Address Unknown Phone Unavailable Care Team Providers Care Lime Spreader Name Role Phone LARA Faustin, CLARKE Unavailable Unavailable NICO Faustin, CARMELINA Unavailable Unavailable Keo Olivas MD Unavailable Unavailable LARA LAUGHLIN MS, CLARKE Unavailable Unavailable Unavailable Unavailable Functional Status [...] TABLET DAILY. * Quantity: 90 Refills: 3 NICO Gale.Alvaro., CARMELINA Active Pravastatin Sodium 20 MG Oral Tablet TAKE 1 TABLET DAILY. * Quantity: 1 Refills: 3 NICO Gale.Alvaro.CARMELINA Active 90 Tablet Bottle Donepezil HCl - [...] TWICE DAILY * Quantity: 180 Refills: 0 NICO Faustin, CARMELINA * Start : 30-May-2019 Active Allergies [...] (finding) Vital Signs Date Test Result Details :34 Systolic blood pressure 126 mm[Hg] Status: Comments : Location: LUE; Position: Sitting Diastolic blood pressure 72 mm[Hg] Status: Comment s: Location: LUE; Position: Sitting :31 Systolic blood pressure 147 mm[Hg] Status: Comments [...] Details Planned Observations Planned Goals not documented Instructions Name Dates Details Instructions not documented [...]
[2019-11-26 23:23] VITALS: BP 128/80
--- NOTE | 2019-11-27 02:18 | Diagnostic Imaging Report ---
Patient name: Fabian Calderon Date of : 1945 Date of exam: 11/26/[address] HEAD WO CONTRAST HISTORY: Altered mental status COMPARISON: Head CT 01/23/2019, MRI of the brain 01/24/2019 TECHNIQUE: Noncontrast axial scans were obtained from skull base to the vertex. Coronal and sagittal reconstructions obtained from the axial data. One or more of the following dose reduction techniques were used: Automated exposure control, adjustment of the mA and/or kV according to patient size, and/or utilization of iterative reconstruction technique. DISCUSSION: Scalp/Skull: Unremarkable. Brain sulci: Mildly prominent. Ventricles: Unchanged moderate supratentorial ventriculomegaly is out of proportion to sulcal prominence. Extra-axial spaces: No masses or fluid collections. Carotid siphon and vertebral artery calcifications are present. Parenchyma: Unchanged mild to moderate periventricular white matter hypodensities are likely chronic microvascular ischemic changes. Otherwise, no mass, hemorrhage, or large vascular territory acute infarct. Dural sinuses: No abnormal densities. Sellar/Suprasellar region: Intact. Skull base: Intact. Incidental findings: Bilateral ocular lens replacement. IMPRESSION: 1. Unchanged moderate supratentorial ventriculomegaly is out of proportion to sulcal prominence. Correlate for communicating hydrocephalus (i.e. normal pressure hydrocephalus in the appropriate clinical setting). 2. Otherwise, no acute intracranial abnormalities. 3. Mild to moderate supratentorial chronic microvascular ischemic change. Mild generalized cerebral volume loss. Signed by: Dr. Yevgeniy Carrington M.D. on 11/27/2019 3:33 AM
--- NOTE | 2019-11-27 02:27 | Diagnostic Imaging Report ---
Patient name: Fabian Calderon Date of : 1945 Date of exam: 11/26/[address] CERVICAL SPINE WO CONTRAST HISTORY: Neck pain COMPARISON: Concurrent head CT TECHNIQUE: CT of the cervical spine without contrast. Sagittal and coronal reformations were created. One or more of the following dose reduction techniques were used: Automated exposure control, adjustment of the mA and/or kV according to patient size, and/or utilization of iterative reconstruction technique. FINDINGS: Cervical lordosis is straightened. There is no scoliosis or subluxation. No fractures, compression deformity, or destructive osseous lesions are seen. The craniocervical junction is intact. No gross spinal canal masses are seen. The paravertebral and paraspinal soft tissues are unremarkable. Mild to moderate multilevel spondylotic changes are present. There is at least mild canal stenosis from C3-C4 to C6-C7 due to posterior disc osteophyte complexes. Multilevel foraminal stenoses due to uncovertebral and facet arthrosis are present - moderate to severe bilaterally at C3-C4; severe on the left at C4-C5, severe bilaterally at C6-C7 Mild bilateral carotid bulb calcified plaque is present. Mediastinal lipomatosis is partially imaged. IMPRESSION: 1. No acute osseous abnormalities. 2. Mild to moderate multilevel spondylosis with degenerative canal and foraminal stenoses as described above. Signed by: Dr. Yevgeniy Carrington M.D. on 11/27/2019 3:34 AM
== END 2019-11-26 23:39 | disposition home or self-care (01) ==
LOC: ER 20:32
DX: S09.90XA Unspecified injury of head, initial encounter (principal); S00.83XA Contusion of other part of head, initial encounter; M54.2 Cervicalgia; W01.0XXA Fall on same level from slipping, tripping and stumbling without subsequent striking against object, initial encounter; Y93.E6 Activity, residential relocation; Y92.008 Other place in unspecified non-institutional (private) residence as the place of occurrence of the external cause; I10 Essential (primary) hypertension; E11.9 Type 2 diabetes mellitus without complications; E78.5 Hyperlipidemia, unspecified; I25.10 Atherosclerotic heart disease of native coronary artery without angina pectoris
CPT/HCPCS: 70450; 72125; 99284

== ENCOUNTER → 2020-09-14 | Outpatient (CLI) | payer OTHER, MEDICARE ==
[2020-09-14 10:29] LABS: HEMOGLOBIN 15.4 g/dL (14.0-18.0)
[2020-09-14 10:55] LABS: INR 0.93
[2020-09-14 10:56] LABS: PARTIAL THROMBOPLASTIN TIME 31.5 seconds (23.8-35.5)
[2020-09-14 13:07] LABS: APPEARANCE,CSF CLEAR (CLEAR); COLOR,CSF COLORLESS (COLORLESS)
[2020-09-14 13:08] LABS: TUBE NUMBER 3
[2020-09-14 13:09] LABS: WHITE BLOOD CELL,CSF 3 cells/uL (0-5)
== END ==
LOC: DX 10:02
PROVIDERS: ATTEND Student in an Organized Health Care Education/Training Program
DX: G91.2 (Idiopathic) normal pressure hydrocephalus (principal)
CPT/HCPCS: 36415; 62328; 77003; 82945; 85014; 85049; 85610; 85730; 87070; 87205; 89051